=== PATIENT | female | born 1980 | race Hispanic/Latino ===

== ENCOUNTER 2019-05-05 12:21 | Emergency (ER) | payer SELFPAY ==
[2019-05-05] MEDS ORDERED: NA CHLORIDE 0.9% 1,000 ML ONE (12:46)
[2019-05-05 13:10] LABS: Protime INR 1.01
[2019-05-05 13:11] LABS: Absolute Lymphocytes (CBC) 1.7 K/uL (0.7-4.9); Basophils % 0.7 % (0-1.3); Hematocrit 34.6 % (36.0-45.0); Lymphocytes % 18.9 % (15.3-44.8); RBC Red Blood Cell Count 4.19 M/uL (3.86-4.86)
--- NOTE | 2019-05-05 13:12 | RAD REPORT ---
EXAM DESCRIPTION: Tarun Single View05/05/2019 1:06 pm CLINICAL HISTORY: Palpitation COMPARISON: May 01, 2019 FINDINGS: The lungs appear clear of acute infiltrate. The heart is normal size IMPRESSION: No acute abnormalities displayed
[2019-05-05 13:30] LABS: ALT/SGPT 22 U/L (12-78); AST/SGOT 12 U/L (15-37); Albumin 3.3 g/dL (3.4-5.0); Alkaline Phosphatase 77 U/L (45-117); BUN Blood Urea Nitrogen 11 mg/dL (7-18); Bicarbonate 23 mmol/L (21-32); Bilirubin Direct < 0.1 mg/dL (0-0.2); Bilirubin Total 0.3 mg/dL (0.2-1.0); Glucose Level 116 mg/dL (74-106); Magnesium 2.4 mg/dL (1.8-2.4); NT PRO-BNP 609 pg/mL (<125); Potassium 4.2 mmol/L (3.5-5.1); Protein, Total 7.3 g/dL (6.4-8.2); Sodium Level 144 mmol/L (136-145); Thyroid Stimulating Hormone 0.546 uIU/mL (0.360-3.740); Troponin (Emerg Dept Use Only) 0.08 ng/mL (0.0-0.045)
--- NOTE | 2019-05-05 14:18 | ER ---
Nurse's Notes [facility] Name: Janet Eduardo Age: 39 yrs Sex: Female : 1980 Arrival Date: 05/05/2019 Time: 12:24 Bed 5 Private MD: Diagnosis: Supraventricular tachycardia;Elevated troponin Presentation: 05/05 12:25 Presenting complaint: EMS states: At work when patient began experiencing palpitations. ss Pt refused EMS transport, when to [facility] for evaluation which heart rate was noted to be 180 bmp. EMS Administered Adenosine 12 mg, which was unsuccessful. Ativan 2 mg administered and patient cardioverted at 50 J which was successful bring heart rate down to 107. Patient has no complaints at this time. Transition of care: patient was not received from another setting of care. Onset of symptoms was May 05, 2019. Risk Assessment: Do you want to hurt yourself or someone else? Patient reports no desire to harm self or others. Initial Sepsis Screen: Does the patient meet any 2 criteria? HR > 90 bpm. Does the patient have a suspected source of infection? No. Patient's initial sepsis screen is negative. 12:25 Method Of Arrival: EMS: [facility] 12:25 Acuity: PRETTY 3 12:43 Care prior to arrival: Medication(s) given: see triage note IV initiated. 22 GA, in the ss left hand. Historical: - Allergies: 12:31 No Known Allergies; ss - Home Meds: 12:31 Synthroid 75 mcg Oral tab 1 tab once daily [Active]; ss - PMHx: 12:31 Hypothyroidism; ss - Immunization history:: Adult Immunizations up to date. - Social history:: Smoking status: Patient/guardian denies using tobacco. - Ebola Screening: : Patient denies exposure to infectious person Patient denies travel to an Ebola-affected area in the 21 days before illness onset. Screenin:58 Abuse screen: Denies threats or abuse. Denies injuries from another. Nutritional hb screening: No deficits noted. Tuberculosis screening: No symptoms or risk factors identified. Fall Risk None identified. Assessment: 12:30 General: Appears in no apparent distress. Behavior is calm, cooperative. Pain: Denies hb pain. Neuro: Level of Consciousness is awake, alert, obeys commands, Oriented to person, place, time, situation. Cardiovascular: Heart tones S1 S2 present Capillary refill < 3 seconds Patient's skin is warm and dry. Respiratory: Airway is patent Respiratory effort is even, unlabored, Respiratory pattern is regular, symmetrical, Breath sounds are clear bilaterally. GI: No signs and/or symptoms were reported involving the gastrointestinal system. : No signs and/or symptoms were reported regarding the genitourinary system. EENT: No signs and/or symptoms were reported regarding the EENT system. Derm: Skin is pink, warm \T\ dry. Musculoskeletal: No signs and/or symptoms reported regarding the musculoskeletal system. 12:59 Reassessment: Pt reports feeling better, wants to go home. KATH Santacruz notified. hb 13:00 Reassessment: Patient appears in no apparent distress at this time. Patient and/or hb family updated on plan of care and expected duration. Pain level reassessed. Patient is alert, oriented x 3, equal unlabored respirations, skin warm/dry/pink. 13:17 Reassessment: KATH Santacruz at bedside to discuss plan of care. hb 13:30 Reassessment: Patient appears in no apparent distress at this time. Patient and/or hb family updated on plan of care and expected duration. Pain level reassessed. Patient is alert, oriented x 3, equal unlabored respirations, skin warm/dry/pink. 13:41 Reassessment: Pt questioning plan of care, KATH Santacruz at bedside. hb 14:03 Reassessment: KATH Santacruz at bedside to discuss plan of care, pt insisting she be hb discharged home. 14:15 Reassessment: Patient appears in no apparent distress at this time. Patient and/or hb family updated on plan of care and expected duration. Pain level reassessed. Patient is alert, oriented x 3, equal unlabored respirations, skin warm/dry/pink. Patient denies pain at this time. Vital Signs: 12:31 BP 113 / 69; Pulse 105; Resp 15; Temp 98.0(TE); Pulse Ox 99% on R/A; Height 5 ft. 2 in. ss (157.48 cm); Pain 0/10; 13:15 BP 118 / 80; Pulse 80; Resp 15; Pulse Ox 100% ; Pain 0/10; hb 13:59 BP 116 / 82; Pulse 83; Resp 20; Temp 97.6(TE); Pulse Ox 100% on R/A; mh5 ED Course: 12:24 Patient arrived in ED. ss 12:26 Patient has correct armband on for positive identification. Placed in gown. Bed in low mh5 position. Call light in reach. Side rails up X2. Warm blanket given. secured entrance monitor on. Pulse ox on. NIBP on. 12:26 Maintain EMS IV. Dressing intact. Site clean \T\ dry. mh5 12:27 Triage completed. ss 12:29 Noam Barnes NP is PHCP. pm1 12:29 Enrique Martinez MD is Attending Physician. pm1 12:31 Arm band placed on right wrist. ss 12:40 EKG done, by aircraft engine technician. reviewed by Noam Barnes NP. at1 12:54 Inserted saline lock: 22 gauge in right wrist, using aseptic technique. Blood collected.hb 13:06 XRAY Chest (1 view) In Process Unspecified. EDMS 13:08 Mildred Enrique RN is Primary Nurse. sv 13:45 Patient maintains SpO2 saturation greater than 95% on room air. hb 14:33 No provider procedures requiring assistance completed. hb 14:33 IV discontinued, intact, bleeding controlled, No redness/swelling at site. Pressure hb dressing applied. Administered Medications: 12:57 Drug: NS 0.9% 1000 ml Route: IV; Rate: 1000 ml; Site: right wrist; hb 13:49 Follow up: Response: No adverse reaction; IV Status: Completed infusion; IV Intake: hb 1000ml Intake: 13:49 IV: 1000ml; Total: 1000ml. hb Outcome: 14:33 AMA AMA form signed hb 14:33 Condition: unchanged 14:33 Instructed on the need for admit, Demonstrated understanding of instructions. 14:35 Patient left the ED. hb Signatures: Dispatcher [employer] EDMI Mildred Enrique RN RN sv Smirch, Shelby, RN RN ss Shannon Zuñiga, battery mechanic EKG Tat1 Noam Barnes NP CULINARY ART TEACHER pm1 Shira Marquez RN RN hb Martinez, Maria [facility] Corrections: (The following items were deleted from the chart) 12:44 12:25 Care prior to arrival: None. ss ss
--- NOTE | 2019-05-05 14:19 | EDPHYS ---
Physician Documentation [facility] Name: Janet Eduardo Age: 39 yrs Sex: Female : 1980 Arrival Date: 05/05/2019 Time: 12:24 Bed 5 Private MD: ED Physician Enrique Martinez HPI: 05/05 12:41 This 39 yrs old Female presents to ER via EMS with complaints of Irregular pm1 Pulse. 12:41 The patient presents with a history of heart racing. Context: The symptoms occur at pm1 rest. Onset: The symptoms/episode began/occurred this morning, at 04:30, patient woke up with sensation of palpitations . Duration: The patient or guardian reports a single episode, that is now resolved. Modifying factors: The symptoms are aggravated by nothing. The symptoms are alleviated by medications and shock given by EMS. Associated signs and symptoms: Pertinent negatives: chest pain, fever, lightheadedness, nausea, SOB, syncope, vomiting. Severity of symptoms: in the emergency department the symptoms have resolved Pain is currently a 0 / 10. The patient has experienced similar episodes in the past, multiple times. The patient has been recently seen by a physician: Patient seen at clinic prior to arrival. 12:41 Patient woke up this AM at 0430 with palpitations and then she went back to sleep. Woke pm1 up at 0530 and palpitations were still present as she got ready for work. Symptoms persisted as she was at work, went to a clinic were they saw that she had a heart rate of 180's. EMS came to the clinic and shocked her out of the rhythm. Patient reports history of palpitations that she self resolves with Valsalva maneuvers. Today the maneuvers did not work Has had this problem for at least the past 5 years. Historical: - Allergies: 12:31 No Known Allergies; ss - Home Meds: 12:31 Synthroid 75 mcg Oral tab 1 tab once daily [Active]; ss - PMHx: 12:31 Hypothyroidism; ss - Immunization history:: Adult Immunizations up to date. - Social history:: Smoking status: Patient/guardian denies using tobacco. - Ebola Screening: : Patient denies exposure to infectious person Patient denies travel to an Ebola-affected area in the 21 days before illness onset. ROS: 12:41 Constitutional: Negative for fever, chills, and weight loss, Eyes: Negative for injury, pm1 pain, redness, and discharge, ENT: Negative for injury, pain, and discharge, Neck: Negative for injury, pain, and swelling. 12:41 Respiratory: Negative for shortness of breath, cough, wheezing, and pleuritic chest pain, Abdomen/GI: Negative for abdominal pain, nausea, vomiting, diarrhea, and constipation, Back: Negative for injury and pain, : Negative for injury, bleeding, discharge, and swelling, MS/Extremity: Negative for injury and deformity, Skin: Negative for injury, rash, and discoloration, Neuro: Negative for headache, weakness, numbness, tingling, and seizure. 12:41 Cardiovascular: Positive for palpitations, Negative for chest pain, edema, orthopnea. Exam: 12:41 Constitutional: This is a well developed, well nourished patient who is awake, alert, pm1 and in no acute distress. Head/Face: Normocephalic, atraumatic. Eyes: Pupils equal round and reactive to light, extra-ocular motions intact. Lids and lashes normal. Conjunctiva and sclera are non-icteric and not injected. Cornea within normal limits. Periorbital areas with no swelling, redness, or edema. ENT: Nares patent. No nasal discharge, no septal abnormalities noted. Tympanic membranes are normal and external auditory canals are clear. Oropharynx with no redness, swelling, or masses, exudates, or evidence of obstruction, uvula midline. Mucous membranes moist. Neck: Trachea midline, no thyromegaly or masses palpated, and no cervical lymphadenopathy. Supple, full range of motion without nuchal rigidity, or vertebral point tenderness. No Meningismus. Chest/axilla: Normal chest wall appearance and motion. Nontender with no deformity. No lesions are appreciated. Cardiovascular: Regular rate and rhythm with a normal S1 and S2. No gallops, murmurs, or rubs. No pulse deficits. Respiratory: Lungs have equal breath sounds bilaterally, clear to auscultation and percussion. No rales, rhonchi or wheezes noted. No increased work of breathing, no retractions or nasal flaring. Abdomen/GI: Soft, non-tender, with normal bowel sounds. No distension or tympany. No guarding or rebound. No evidence of tenderness throughout. Back: No spinal tenderness. No costovertebral tenderness. Full range of motion. Skin: Warm, dry with normal turgor. Normal color with no rashes, no lesions, and no evidence of cellulitis. MS/ Extremity: Pulses equal, no cyanosis. Neurovascular intact. Full, normal range of motion. 12:41 Neuro: Orientation: is normal, Mentation: is normal, Motor: is normal, moves all fours, Sensation: is normal, no obvious gross deficits. Vital Signs: 12:31 BP 113 / 69; Pulse 105; Resp 15; Temp 98.0(TE); Pulse Ox 99% on R/A; Height 5 ft. 2 in. ss (157.48 cm); Pain 0/10; 13:15 BP 118 / 80; Pulse 80; Resp 15; Pulse Ox 100% ; Pain 0/10; hb 13:59 BP 116 / 82; Pulse 83; Resp 20; Temp 97.6(TE); Pulse Ox 100% on R/A; mh5 MDM: 12:34 Patient medically screened. pm1 13:44 Data reviewed: vital signs. Data interpreted: Pulse oximetry: on room air is 98 %. pm1 Interpretation: normal. Counseling: I had a detailed discussion with the patient and/or guardian regarding: the historical points, exam findings, and any diagnostic results supporting the discharge/admit diagnosis, lab results, radiology results, the need for further work-up and treatment in the hospital, elevated troponin present. 13:44 Refusal of service: The patient/guardian displays adequate decision making capability pm1 and despite a detailed discussion of alternatives, benefits, risks, and consequences refuses: Admission to the hospital for further work-up and treatment, Patient reports that she feels fine without any symptoms and wants to go back to work. 14:15 ED course: After discussing in length again the reason for admission, the patient wants pm1 to go home and her supports her diecision. 05/05 12:35 Order name: Basic Metabolic Panel; Complete Time: 13:32 pm1 05/05 12:35 Order name: CBC with Diff; Complete Time: 13:32 pm1 05/05 12:35 Order name: LFT's; Complete Time: 13:32 pm1 05/05 12:35 Order name: Magnesium; Complete Time: 13:32 pm1 05/05 12:35 Order name: NT PRO-BNP; Complete Time: 13:32 pm1 05/05 12:35 Order name: PT-INR; Complete Time: 13:32 pm1 05/05 12:35 Order name: Troponin (emerg Dept Use Only); Complete Time: 13:32 pm1 05/05 12:35 Order name: XRAY Chest (1 view); Complete Time: 13:32 pm1 05/05 12:35 Order name: EKG; Complete Time: 12:36 pm1 05/05 12:35 Order name: Cardiac monitoring; Complete Time: 13:10 pm1 05/05 12:35 Order name: EKG - Nurse/Tech; Complete Time: 13:10 pm1 05/05 12:35 Order name: TSH; Complete Time: 13:32 pm1 05/05 12:35 Order name: IV Saline Lock; Complete Time: 13:10 pm1 05/05 12:35 Order name: Labs collected and sent; Complete Time: 13:10 pm1 05/05 12:35 Order name: O2 Per Protocol; Complete Time: 13:10 pm1 05/05 12:35 Order name: O2 Sat Monitoring; Complete Time: 13:10 pm1 Administered Medications: 12:57 Drug: NS 0.9% 1000 ml Route: IV; Rate: 1000 ml; Site: right wrist; hb 13:49 Follow up: Response: No adverse reaction; IV Status: Completed infusion; IV Intake: hb 1000ml Disposition: 05/06 07:28 Co-signature as Attending Physician, Enrique Martinez MD I agree with the assessment and kdr plan of care. Disposition: 05/05/19 14:18 Patient has left against medical advice. Impression: Supraventricular tachycardia, Elevated troponin. - Patients states they are going to Home. - Condition is Undetermined. - Discharge Instructions: Electrical Cardioversion, Paroxysmal Supraventricular Tachycardia. Follow up: Emergency Department; When: Upon discharge from the Emergency Department; Reason: Recheck today's complaints, Continuance of care, Re-evaluation by your physician. Follow up: Private Physician; When: Upon discharge from the Emergency Department; Reason: Recheck today's complaints, Continuance of care, Re-evaluation by your physician. - Problem is new. - Symptoms have improved. Signatures: Dispatcher [employer] Enrique Ralph MD MD [facility] Daisha Rucker RN RN ss Noam Barnes NP CREATIVE SERVICES DESIGNER pm1 Shira Marquez RN RN hb Corrections: (The following items were deleted from the chart) 05/05 14:35 14:18 05/05/2019 14:18 Patients has left against medical advice. Impression: hb Supraventricular tachycardia; Elevated troponin. Patient states they are going to Home. Condition is Undetermined. Follow up: Emergency Department; When: Upon discharge from the Emergency Department; Reason: Recheck today's complaints, Continuance of care, Re-evaluation by your physician. Follow up: Private Physician; When: Upon discharge from the Emergency Department; Reason: Recheck today's complaints, Continuance of care, Re-evaluation by your physician. Problem is new. Symptoms have improved. pm1
--- NOTE | 2019-05-05 14:30 | EKG ---
Test Date: 2019-05-05 Test Time: 12:30:03 Nurse Assessor: CHRIS MEASUREMENT RESULTS: Intervals: Rate: 96 TN: 138 QRSD: 68 QT: 338 QTc: 427 [employer]: P: 53 TN: 138 QRS: 13 T: 16 INTERPRETIVE STATEMENTS: Normal sinus rhythm Normal ECG Compared to ECG 05/02/2009 05:25:01 No significant changes Electronically Signed On 05-05-19 14:29:54 BUCKET WASH OPERATOR by Young Ruiz
[2019-05-05 16:20] VITALS: O2SAT 100
[2019-05-05 16:22] VITALS: BP 116/82; TEMP 97.6
== END 2019-05-05 14:35 | disposition left against medical advice (07) ==
LOC: ER 12:21
DX: I47.1 Supraventricular tachycardia (principal); R79.89 Other specified abnormal findings of blood chemistry; E03.9 Hypothyroidism, unspecified
CPT/HCPCS: 36415; 71045; 80048; 80076; 83735; 83880; 84443; 84484; 85025; 85610; 93005; 96360; 99285; J7030

== ENCOUNTER 2019-10-26 10:49 | Emergency (ER) | payer SELFPAY ==
[2019-10-26 11:23] LABS: Absolute Lymphocytes (CBC) 2.5 K/uL (0.7-4.9); Basophils % 0.9 % (0-1.3); Hematocrit 32.9 % (36.0-45.0); MPV 7.9 fL (7.6-11.3); RBC Red Blood Cell Count 4.65 M/uL (3.86-4.86)
[2019-10-26 11:26] LABS: Protime INR 1.03
[2019-10-26 11:49] LABS: ALT/SGPT 17 U/L (12-78); AST/SGOT 12 U/L (15-37); Albumin 3.3 g/dL (3.4-5.0); Alkaline Phosphatase 79 U/L (45-117); BUN Blood Urea Nitrogen 14 mg/dL (7-18); Bicarbonate 24 mmol/L (21-32); Bilirubin Direct < 0.1 mg/dL (0-0.2); Bilirubin Total 0.3 mg/dL (0.2-1.0); Glucose Level 104 mg/dL (74-106); Magnesium 2.3 mg/dL (1.8-2.4); NT PRO-BNP 1320 pg/mL (<125); Potassium 4.1 mmol/L (3.5-5.1); Protein, Total 7.8 g/dL (6.4-8.2); Sodium Level 138 mmol/L (136-145); Thyroid Stimulating Hormone 0.446 uIU/mL (0.360-3.740); Troponin (Emerg Dept Use Only) 0.03 ng/mL (0.0-0.045)
--- NOTE | 2019-10-26 11:52 | RAD REPORT ---
EXAM DESCRIPTION: RAD - Chest Single View - 10/26/2019 11:36 am CLINICAL HISTORY: CHEST PAIN COMPARISON: April 2019 TECHNIQUE: AP portable chest image was obtained 10/26/2019 11:36 am . FINDINGS: Lungs are clear. Heart and vasculature are normal. No measurable pleural effusion and no p neumothorax. No acute bony abnormality seen. No acute aortic findings suspected. IMPRESSION: No acute cardiopulmonary process. No significant interval change.
--- NOTE | 2019-10-26 12:21 | ER ---
Nurse's Notes [facility] Name: Janet Eduardo Age: 39 yrs Sex: Female : 1980 Arrival Date: 10/26/2019 Time: 10:50 Bed 4 Private MD: Diagnosis: Palpitations Presentation: 10/25 10:57 Chief complaint: Patient states: was sent from clinic for heart rate at 190 bpm and iw hypotension. Risk Assessment: Do you want to hurt yourself or someone else? Patient reports no desire to harm self or others. 10:57 Method Of Arrival: Wheelchair iw 10:57 Acuity: PRETTY 2 iw 11:04 Coronavirus screen: Patient reports a cough. Patient denies shortness of breath or ph difficulty breathing. Patient denies measured and/or subjective temperature greater than 100.4F prior to today's visit. Patient denies travel on a cruise ship or to a country the [facility] currently lists as an affected area. Patient denies contact with known and/or suspected case of COVID-19. Ebola Screen: No symptoms or risks identified at this time. Initial Sepsis Screen: Does the patient meet any 2 criteria? No. Patient's initial sepsis screen is negative. Does the patient have a suspected source of infection? No. Patient's initial sepsis screen is negative. Onset of symptoms was October 26, 2019. Triage Assessment: 11:02 General: Appears in no apparent distress. comfortable, well groomed, Behavior is calm, ph cooperative, appropriate for age, Denies fever, feeling ill. Pain: Denies pain. Neuro: Level of Consciousness is awake, alert, obeys commands, Oriented to person, place, time, situation. Cardiovascular: Denies chest pain, fatigue, palpitations, shortness of breath, Capillary refill < 3 seconds in bilateral fingers Patient's skin is warm and dry. Rhythm is sinus rhythm. Respiratory: Reports cough that is Airway is patent Respiratory effort is even, unlabored, Respiratory pattern is regular, symmetrical, Denies shortness of breath. GI: No signs and/or symptoms were reported involving the gastrointestinal system. Derm: Skin is intact, is healthy with good turgor, Skin is pink, warm \T\ dry. Musculoskeletal: Circulation, motion, and sensation intact. Range of motion: intact in all extremities. MEDICAL BILLING INSTRUCTOR: 11:00 LMP 10/02/2019 ph Historical: - Allergies: 11:04 No Known Allergies; ph - Home Meds: 11:00 Synthroid 75 mcg Oral tab 1 tab once daily [Active]; iw - PMHx: 11:00 Hypothyroidism; iw - Immunization history:: Adult Immunizations unknown. - Social history:: Smoking status: Patient denies any tobacco usage or history of. Screenin:03 Abuse screen: Denies threats or abuse. Denies injuries from another. Nutritional ph screening: No deficits noted. Tuberculosis screening: No symptoms or risk factors identified. Fall Risk None identified. Assessment: 11:48 Reassessment: Patient appears in no apparent distress at this time. Patient and/or ph family updated on plan of care and expected duration. Pain level reassessed. Patient is alert, oriented x 3, equal unlabored respirations, skin warm/dry/pink. General: SEE TRIAGE ASSESSMENT. 13:00 Reassessment: Patient appears in no apparent distress at this time. Patient and/or ph family updated on plan of care and expected duration. Pain level reassessed. Patient is alert, oriented x 3, equal unlabored respirations, skin warm/dry/pink. Pt prescribed low dose of medication to helo control heart rate, instructed to follow up w/ integration developer. Vital Signs: 11:00 BP 118 / 66; Pulse 89; Resp 18; Temp 97.1; Pulse Ox 100% on R/A; Weight 100.24 kg; ph Height 5 ft. 2 in. (157.48 cm); Pain 0/10; 12:00 BP 109 / 68; Pulse 87; Resp 16; Temp 97.6; Pulse Ox 99% on R/A; ph 13:00 BP 112 / 66; Pulse 84; Resp 16; Temp 97.9; Pulse Ox 99% on R/A; ph 11:00 Body Mass Index 40.42 (100.24 kg, 157.48 cm) ph ED Course: 10:50 Patient arrived in ED. ds1 10:57 Chung Quiros PA is PHCP. jr8 10:57 Enrique Martinez MD is Attending Physician. jr8 10:59 Triage completed. iw 11:00 Carmen Melendrez, RN is Primary Nurse. ph 11:03 Arm band placed on Patient placed in an exam room, on a stretcher, on shelter monitor, ph on pulse oximetry. 11:04 Patient has correct armband on for positive identification. Placed in gown. Bed in low ph position. Call light in reach. Side rails up X2. conveyor monitor on. Pulse ox on. NIBP on. Door closed. Noise minimized. Warm blanket given. 11:04 No provider procedures requiring assistance completed. ph 11:06 Initial lab(s) drawn, by me, sent to lab. Inserted saline lock: 20 gauge in right dh3 antecubital area, using aseptic technique. Blood collected. 11:36 EKG done, by durability technician. reviewed by Enrique Martinez MD. tc 11:37 XRAY Chest (1 view) In Process Unspecified. EDMS 12:16 Young Ruiz MD is Referral Physician. jr8 13:00 IV discontinued, intact, bleeding controlled, No redness/swelling at site. Pressure ph dressing applied. Administered Medications: No medications were administered Outcome: 12:20 Discharge ordered by . jr8 13:06 Patient left the ED. ph 13:06 Discharged to home ambulatory. ph 13:06 Condition: good 13:06 Discharge instructions given to patient, Instructed on discharge instructions, follow up and referral plans. medication usage, Demonstrated understanding of instructions, follow-up care, medications, Prescriptions given X 1. Signatures: Dispatcher [employer] [facility] Leigh Larios ds1 Radha Nassar, RN Chung Fiore PA PA jr8 Octavia Boles, passenger rate clerk EKG Ttc Carmen Melendrez RN RN ph Herrera, [facility]
--- NOTE | 2019-10-26 12:22 | EDPHYS ---
Physician Documentation [facility] Name: Janet Eduardo Age: 39 yrs Sex: Female : 1980 Arrival Date: 10/26/2019 Time: 10:50 Bed 4 Private MD: ED Physician Enrique Martinez HPI: 10/25 12:13 This 39 yrs old Female presents to ER via Wheelchair with complaints of SVT. jr8 12:13 The patient presents with a history of heart racing. Context: The symptoms occur at jr8 rest. Onset: The symptoms/episode began/occurred acutely, today. Duration: The patient or guardian reports a single episode, that is now resolved. Modifying factors: The symptoms are aggravated by nothing. The symptoms are alleviated by nothing. Associated signs and symptoms: The patient has no apparent associated signs or symptoms. Severity of symptoms: At their worst the symptoms were moderate in the emergency department the symptoms have resolved. The patient has experienced similar episodes in the past, several times. The patient has not recently seen a physician. 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 Stated that last episode was about 2 months ago. Had another today but now resolved and feeling better . 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 - Social history:: Smoking status: Patient denies any tobacco usage or history of. ROS: 12:13 Eyes: Negative for injury, pain, redness, and discharge, ENT: Negative for injury, jr8 pain, and discharge, Neck: Negative for injury, pain, and swelling, Respiratory: Negative for shortness of breath, cough, wheezing, and pleuritic chest pain, Abdomen/GI: Negative for abdominal pain, nausea, vomiting, diarrhea, and constipation, Back: Negative for injury and pain, MS/Extremity: Negative for injury and deformity, Skin: Negative for injury, rash, and discoloration, Neuro: Negative for headache, weakness, numbness, tingling, and seizure. 12:13 Cardiovascular: Positive for palpitations. Exam: 12:13 Eyes: Pupils equal round and reactive to light, extra-ocular motions intact. Lids and jr8 lashes normal. Conjunctiva and sclera are non-icteric and not injected. Cornea within normal limits. Periorbital areas with no swelling, redness, or edema. ENT: Nares patent. No nasal discharge, no septal abnormalities noted. Tympanic membranes are normal and external auditory canals are clear. Oropharynx with no redness, swelling, or masses, exudates, or evidence of obstruction, uvula midline. Mucous membranes moist. Neck: Trachea midline, no thyromegaly or masses palpated, and no cervical lymphadenopathy. Supple, full range of motion without nuchal rigidity, or vertebral point tenderness. No Meningismus. Cardiovascular: Regular rate and rhythm with a normal S1 and S2. No gallops, murmurs, or rubs. Normal PMI, no JVD. No pulse deficits. Respiratory: Lungs have equal breath sounds bilaterally, clear to auscultation and percussion. No rales, rhonchi or wheezes noted. No increased work of breathing, no retractions or nasal flaring. Abdomen/GI: Soft, non-tender, with normal bowel sounds. No distension or tympany. No guarding or rebound. No evidence of tenderness throughout. Back: No spinal tenderness. No costovertebral tenderness. Full range of motion. Skin: Warm, dry with normal turgor. Normal color with no rashes, no lesions, and no evidence of cellulitis. MS/ Extremity: Pulses equal, no cyanosis. Neurovascular intact. Full, normal range of motion. Neuro: Awake and alert, GCS 15, oriented to person, place, time, and situation. Cranial nerves II-XII grossly intact. Motor strength 5/5 in all extremities. Sensory grossly intact. Cerebellar exam normal. Normal gait. 12:13 ECG was reviewed by the Attending Physician. Vital Signs: 11:00 BP 118 / 66; Pulse 89; Resp 18; Temp 97.1; Pulse Ox 100% on R/A; Weight 100.24 kg; ph Height 5 ft. 2 in. (157.48 cm); Pain 0/10; 12:00 BP 109 / 68; Pulse 87; Resp 16; Temp 97.6; Pulse Ox 99% on R/A; ph 13:00 BP 112 / 66; Pulse 84; Resp 16; Temp 97.9; Pulse Ox 99% on R/A; ph 11:00 Body Mass Index 40.42 (100.24 kg, 157.48 cm) ph MDM: 10:58 Patient medically screened. [facility] 12:13 Data reviewed: vital signs, nurses notes, lab test result(s), EKG, radiologic studies, jr8 plain films. Data interpreted: Pulse oximetry: on room air is 100 %. Interpretation: normal. 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 Response to treatment: the patient's symptoms have resolved after treatment. 10/25 10:58 Order name: Basic Metabolic Panel; Complete Time: 12:16 10/25 10:58 Order name: CBC with Diff; Complete Time: 12:10/25 10:58 Order name: LFT's; Complete Time: 12:10/25 10:58 Order name: Magnesium; Complete Time: 12:16 10/25 10:58 Order name: NT PRO-BNP; Complete Time: 12:16 10/25 10:58 Order name: PT-INR; Complete Time: 12:16 10/25 10:58 Order name: Troponin (emerg Dept Use Only); Complete Time: 12:16 10/25 10:58 Order name: XRAY Chest (1 view); Complete Time: 12:16 10/25 10:58 Order name: EKG; Complete Time: 10:59 10/25 10:58 Order name: Cardiac monitoring; Complete Time: 11:10/25 10:58 Order name: EKG - Nurse/Tech; Complete Time: 11:10/25 10:58 Order name: IV Saline Lock; Complete Time: 11:10/25 10:58 Order name: TSH; Complete Time: 12:16 10/25 10:58 Order name: T4 Free; Complete Time: 12:16 10/25 10:58 Order name: Labs collected and sent; Complete Time: 11:10/25 10:58 Order name: O2 Per Protocol; Complete Time: 8 10/25 10:58 Order name: O2 Sat Monitoring; Complete Time: EC:13 Rate is 90 beats/min. Rhythm is regular, Normal Sinus Rhythm. QRS [place] is Normal. ID jr8 interval is normal at 142 msec. QRS interval is normal at 70 msec. QT interval is normal at 425 msec. No Q waves. T waves are Normal. No ST changes noted. Clinical impression: Normal ECG. Interpreted by me. Reviewed by me. Administered Medications: No medications were administered Disposition: 14:12 Co-signature as Attending Physician, Enrique Martinez MD I agree with the assessment and kdr plan of care. Disposition: 10/26/19 12:20 Discharged to Home. Impression: Palpitations. - Condition is Stable. - Discharge Instructions: Holter Monitoring, Palpitations, Paroxysmal Supraventricular Tachycardia. - Prescriptions for Carvedilol 6.25 mg Oral Tablet - take 1 tablet by ORAL route once daily with food; 30 tablet. - Medication Reconciliation Form, Thank You Letter, Antibiotic Education, Prescription Opioid Use form. - Follow up: Young Ruiz MD; When: 1 - 2 days; Reason: Recheck today's complaints, Continuance of care, Re-evaluation by your physician. - Problem is new. - Symptoms have improved. Signatures: Dispatcher [employer] EDME Enrique Martinez MD MD kdr Radha Nassar RN RN iw Chung Quiros PA PA jr8 Carmen Melendrez RN RN ph Corrections: (The following items were deleted from the chart) 13:06 12:20 10/26/2019 12:20 Discharged to Home. Impression: Palpitations. Condition is ph Stable. Forms are Medication Reconciliation Form, Thank You Letter, Antibiotic Education, Prescription Opioid Use. Follow up: Young Ruiz; When: 1 - 2 days; Reason: Recheck today's complaints, Continuance of care, Re-evaluation by your physician. Problem is new. Symptoms have improved. jr8
[2019-10-26 14:13] VITALS: BP 118/66; TEMP 97.1; O2SAT 100
--- NOTE | 2019-10-26 16:17 | EKG ---
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
== END 2019-10-26 13:06 | disposition home or self-care (01) ==
LOC: ER 10:49
DX: R00.2 Palpitations (principal); E03.9 Hypothyroidism, unspecified
CPT/HCPCS: 36415; 71045; 80048; 80076; 83735; 83880; 84439; 84443; 84484; 85025; 85610; 93005; 99284

== ENCOUNTER 2020-09-10 09:18 | Inpatient (IN) | payer SELFPAY ==
[2020-09-10 09:52] LABS: Absolute Lymphocytes (CBC) 2.2 K/uL (0.7-4.9); Basophils % 0.5 % (0-1.3); Hematocrit 30.1 % (36.0-45.0); Lymphocytes % 20.1 % (15.3-44.8); MPV 7.5 fL (7.6-11.3); RBC Red Blood Cell Count 4.47 M/uL (3.86-4.86)
[2020-09-10] MEDS ORDERED: NA CHLORIDE 0.9% 1,000 ML ONE ×2 (09:55→11:35)
[2020-09-10] MEDS ORDERED: ADENOSINE 6 MG/ 2ML VIAL IV ONE (09:55)
--- NOTE | 2020-09-10 10:21 | RAD REPORT ---
EXAM DESCRIPTION: RAD - Chest Single View - 09/10/2020 10:10 am CLINICAL HISTORY: PALPITATIONS Chest pain. COMPARISON: Chest Single View dated 10/26/2019; Chest Single View dated 05/05/2019; CHEST SINGLE VIEW dated 05/01/2009 FINDINGS: Portable technique limits examination quality. The lungs are grossly clear. The heart is normal in size. No displaced fractures. IMPRESSION: No acute intrathoracic process suspected.
[2020-09-10 10:29] LABS: BUN Blood Urea Nitrogen 14 mg/dL (7-18); Bicarbonate 24 mmol/L (21-32); Glucose Level 115 mg/dL (74-106); Magnesium 2.2 mg/dL (1.8-2.4); NT PRO-BNP 871 pg/mL (<125); Potassium 4.4 mmol/L (3.5-5.1); Sodium Level 141 mmol/L (136-145); Troponin (Emerg Dept Use Only) 0.06 ng/mL (0.0-0.045)
[2020-09-10] MEDS ORDERED: HEPARIN 5000 UNIT/ML 1 ML VIAL ONE (12:32)
--- NOTE | 2020-09-10 13:57 | EDPHYS ---
Physician Documentation [facility] Name: Janet Eduardo Age: 40 yrs Sex: Female : 1980 Arrival Date: 09/10/2020 Time: 09:21 Bed 4 Private MD: ED Physician Rio Springer HPI: 09/10 10:51 This 40 yrs old Female presents to ER via Ambulatory with complaints of rn palpitations. 10:52 The patient presents with a history of heart racing. Context: The symptoms occur at rn rest. Onset: The symptoms/episode began/occurred last night. Duration: The patient or guardian reports a single episode. Modifying factors: The symptoms are aggravated by nothing. The symptoms are alleviated by nothing. Severity of symptoms: At their worst the symptoms were moderate in the emergency department the symptoms are unchanged. The patient has experienced similar episodes in the past. The patient has not recently seen a physician. 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 - Social history:: Smoking status: Patient denies any tobacco usage or history of. - Family history:: not pertinent. - Hospitalizations: : No recent hospitalization is reported. ROS: 10:52 Constitutional: Negative for fever, chills, and weight loss, Eyes: Negative for injury, rn pain, redness, and discharge, Neck: Negative for injury, pain, and swelling, Cardiovascular: Negative for chest pain, and edema, Respiratory: Negative for shortness of breath, cough, wheezing, and pleuritic chest pain, Abdomen/GI: Negative for abdominal pain, nausea, vomiting, diarrhea, and constipation, MS/Extremity: Negative for injury and deformity, Skin: Negative for injury, rash, and discoloration, Neuro: Negative for headache, weakness, numbness, tingling, and seizure. 10:52 All other systems are negative. Exam: 09:49 ECG was reviewed by the Attending Physician. rn 10:52 Constitutional: This is a well developed, well nourished patient who is awake, alert, rn and in no acute distress. Head/Face: Normocephalic, atraumatic. Eyes: Pupils equal round and reactive to light, extra-ocular motions intact. Lids and lashes normal. Conjunctiva and sclera are non-icteric and not injected. Cornea within normal limits. Periorbital areas with no swelling, redness, or edema. Cardiovascular: Tachycardic, regular Respiratory: No increased work of breathing, no retractions or nasal flaring. Abdomen/GI: Soft, non-tender, with normal bowel sounds. No distension or tympany. No guarding or rebound. No evidence of tenderness throughout. Skin: Warm, dry MS/ Extremity: Pulses equal, no cyanosis. Neurovascular intact. Full, normal range of motion. Equal circumference. Neuro: Awake and alert, GCS 15, oriented to person, place, time, and situation. Cranial nerves II-XII grossly intact. Motor strength 5/5 in all extremities. Sensory grossly intact. Vital Signs: 09:28 BP 101 / 67; Pulse 108; Resp 28; Temp 97.9; Pulse Ox 99% ; sv 09:43 BP 119 / 83; Pulse 184; Resp 19; Pulse Ox 100% on R/A; sv 09:47 Pulse 96; Resp 20; Pulse Ox 100% on R/A; sv 10:05 BP 101 / 79; Pulse 95; Resp 19; Pulse Ox 100% on R/A; sv 10:45 BP 99 / 70; Pulse 85; Resp 14; Pulse Ox 100% on 2 lpm NC; sv 11:26 BP 101 / 75; Pulse 80; Resp 19; Pulse Ox 100% on 2 lpm NC; sv 12:00 BP 100 / 77; Pulse 72 MON; Resp 17; Pulse Ox 100% on 2 lpm NC; sv 13:00 BP 114 / 77; Pulse 78; Resp 17; Pulse Ox 100% on 2 lpm NC; sv 13:42 BP 104 / 76; Pulse 78; Resp 17; Pulse Ox 100% on 2 lpm NC; sv 14:22 BP 115 / 73; Pulse 88; Resp 17; Pulse Ox 98% on 2 lpm NC; hb 15:00 BP 106 / 74; Pulse 89; Resp 16; Pulse Ox 100% on 2 lpm NC; sv 16:00 BP 106 / 68; Pulse 82; Resp 17; Pulse Ox 97% on 2 lpm NC; hb 16:45 BP 110 / 74; Pulse 82; Resp 16; Pulse Ox 100% on 2 lpm NC; sv 12:00 Sinus Rhythm sv MDM: 09:26 Patient medically screened. rn 09:50 ED course: Pt cardioverted with adenosine, 6mg x 1, MSR with HR 96 after, stable rn vitals, feels palpitations have resolved.. 11:11 ED course: Consulted with Dr. Butterfield, regarding SVT and elevated troponin, states would rn repeat troponin, admit if increasing, otherwise can f/u outpatient if decreases and continue coreg. . 13:56 Differential diagnosis: arrythmia, dehydration. Data reviewed: vital signs, nurses rn notes, lab test result(s), EKG, radiologic studies, plain films, and as a result, I will admit patient. Counseling: I had a detailed discussion with the patient and/or guardian regarding: the historical points, exam findings, and any diagnostic results supporting the discharge/admit diagnosis, lab results, radiology results, the need for further work-up and treatment in the hospital. Response to treatment: the patient's symptoms have markedly improved after treatment, and as a result, I will admit patient. Admission orders: after a detailed discussion of the patient's condition and case, the admit orders are written by me. ED course: Trop increased from 0.06 to 0.15, will admit to Dr. Springer for further care. . 09/10 09:37 Order name: Basic Metabolic Panel rn 09/10 09:37 Order name: CBC with Diff; Complete Time: 10:24 rn 09/10 09:37 Order name: Magnesium; Complete Time: 10:49 rn 09/10 09:37 Order name: NT PRO-BNP; Complete Time: 10:49 rn 09/10 09:37 Order name: Troponin (emerg Dept Use Only); Complete Time: 10:49 rn 09/10 09:38 Order name: Basic Metabolic Panel; Complete Time: 10:49 EDMS 09/10 09:37 Order name: XRAY Chest (1 view); Complete Time: 10:24 rn 09/10 11:25 Order name: Troponin (emerg Dept Use Only): draw at 1200; Complete Time: 13:51 rn 09/10 14:15 Order name: Echo with Doppler EDRI 09/10 14:55 Order name: COVID-19 : Document "Date of Symptom Onset" if Symptomatic. sv 09/10 15:10 Order name: CORONAVIRUS EDRI 09/10 15:50 Order name: SARS-COV-2 RT PCR EDRI 09/10 09:37 Order name: EKG; Complete Time: 09:39 rn 09/10 09:37 Order name: Cardiac monitoring; Complete Time: 09:39 rn 09/10 09:37 Order name: EKG - Nurse/Tech; Complete Time: 09:49 rn 09/10 09:37 Order name: IV Saline Lock; Complete Time: 09:49 rn 09/10 09:37 Order name: Labs collected and sent; Complete Time: 09:49 rn 09/10 09:37 Order name: O2 Per Protocol; Complete Time: :49 rn 09/10 09:37 Order name: O2 Sat Monitoring; Complete Time: 09:49 rn 09/10 10:28 Order name: EKG Electrocardiogram; Complete Time: 11:16 EDRI 09/10 14:14 Order name: CONS Physician Consult EDRI 09/10 15:16 Order name: Diet Heart Healthy; Complete Time: 15:16 sv EC:49 Rate is 186 beats/min. Rhythm is regular. QRS [place] is Normal. QRS interval is normal. rn QT interval is normal. No Q waves. T waves are Normal. No ST changes noted. Clinical impression: SVT. Interpreted by me. Administered Medications: 09:45 Drug: Adenosine 6 mg Route: IVP; Site: right antecubital; ss 09:46 Follow up: Response: No adverse reaction; Marked relief of symptoms sv 09:45 Drug: NS 0.9% 1000 ml Route: IV; Rate: 1000 ml; Site: right antecubital; sv 11:30 Follow up: Response: No adverse reaction; IV Status: Completed infusion; IV Intake: sv 1000ml 09:55 CANCELLED (Duplicate Order): Adenosine 6 mg IVP in right antecubital once sv 12:00 Drug: NS 0.9% 1000 ml Route: IV; Rate: 1000 ml; Site: right antecubital; sv Disposition: 09/10/20 13:57 Hospitalization ordered by William Springer for Observation. Preliminary diagnosis are Supraventricular tachycardia, Elevated troponin. - Bed requested for Telemetry/MedSurg (observation). - Status is Observation. sv - Condition is Stable. - Problem is an acute exacerbation. - Symptoms have improved. Signatures: Dispatcher [employer] EDMildred Frances RN RN Rio Springer MD MD rn Smirch, Shelby, RN RN ss Corrections: (The following items were deleted from the chart) 09:55 09:54 Adenosine 6 mg IVP in right antecubital once given. sv sv 09:55 09:55 Adenosine 6 mg IVP in right antecubital once ordered. sv sv 13:57 13:57 Hospitalization Ordered by William Springer MD for Observation. Preliminary rn diagnosis is Supraventricular tachycardia. Bed requested for Telemetry/MedSurg (observation). Status is Observation. Condition is Stable. Problem is an acute exacerbation. Symptoms have improved. rn 16:14 13:57 09/10/2020 13:57 Hospitalization Ordered by William Springer MD for Observation. sv Preliminary diagnosis is Supraventricular tachycardia; Elevated troponin. Bed requested for Telemetry/MedSurg (observation). Status is Observation. Condition is Stable. Problem is an acute exacerbation. Symptoms have improved. rn 17:38 16:14 09/10/2020 13:57 Hospitalization Ordered by William Springer MD for Observation. sv Preliminary diagnosis is Supraventricular tachycardia; Elevated troponin. Bed requested for Telemetry/MedSurg (observation). Status is Observation. Condition is Stable. Problem is an acute exacerbation. Symptoms have improved. sv
--- NOTE | 2020-09-10 13:57 | ER ---
Nurse's Notes [facility] Name: Janet Eduardo Age: 40 yrs Sex: Female : 1980 Arrival Date: 09/10/2020 Time: 09:21 Bed 4 Private MD: Diagnosis: Supraventricular tachycardia;Elevated troponin Presentation: 09/10 09:25 Chief complaint: Patient states: high heart rate since last night. Hx of this as well. sv Coronavirus screen: Client denies travel out of the [place] in the last 14 days. At this time, the client does not indicate any symptoms associated with coronavirus-19. Ebola Screen: No symptoms or risks identified at this time. Risk Assessment: Do you want to hurt yourself or someone else? Patient reports no desire to harm self or others. Onset of symptoms was September 09, 2020. 09:25 Method Of Arrival: Ambulatory sv 09:25 Acuity: PRETTY 1 sv 09:28 Initial Sepsis Screen: Does the patient meet any 2 criteria? RR > 20 per min. HR > 90 sv bpm. Yes Does the patient have a suspected source of infection? No. Patient's initial sepsis screen is negative. Triage Assessment: 09:25 General: Appears in no apparent distress. uncomfortable, obese, well developed, sv Behavior is calm, cooperative, appropriate for age. Pain: Complains of pain in chest. Neuro: Level of Consciousness is awake, alert, obeys commands, Oriented to person, place, time, situation, Moves all extremities. Full function Gait is steady. Cardiovascular: Patient's skin is warm and dry. Rhythm is SVT. Respiratory: Airway is patent Respiratory effort is even, unlabored, Respiratory pattern is symmetrical, tachypnea. Derm: Skin is pink, warm \\T\\ dry. 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 - Social history:: Smoking status: Patient denies any tobacco usage or history of. - Family history:: not pertinent. - Hospitalizations: : No recent hospitalization is reported. Screenin:02 Abuse screen: Denies threats or abuse. Denies injuries from another. Nutritional sv screening: No deficits noted. Tuberculosis screening: No symptoms or risk factors identified. Fall Risk None identified. Assessment: 10:09 Reassessment: Patient appears in no apparent distress at this time. No changes from sv previously documented assessment. Patient and/or family updated on plan of care and expected duration. Pain level reassessed. Patient is alert, oriented x 3, equal unlabored respirations, skin warm/dry/pink. 11:21 Reassessment: Patient appears in no apparent distress at this time. Patient and/or sv family updated on plan of care and expected duration. Pain level reassessed. Patient is alert, oriented x 3, equal unlabored respirations, skin warm/dry/pink. Patient states feeling better. Patient states symptoms have improved. 12:06 Reassessment: Patient appears in no apparent distress at this time. Patient and/or sv family updated on plan of care and expected duration. Pain level reassessed. Patient is alert, oriented x 3, equal unlabored respirations, skin warm/dry/pink. Patient states feeling better. Patient states symptoms have improved. 13:00 Reassessment: Patient appears in no apparent distress at this time. Patient and/or sv family updated on plan of care and expected duration. Pain level reassessed. Patient is alert, oriented x 3, equal unlabored respirations, skin warm/dry/pink. 14:05 Reassessment: Dr William Springer at the bedside. sv 14:22 Reassessment: Patient appears in no apparent distress at this time. Patient and/or hb family updated on plan of care and expected duration. Pain level reassessed. Patient is alert, oriented x 3, equal unlabored respirations, skin warm/dry/pink. 14:56 Reassessment: Patient appears in no apparent distress at this time. Patient and/or sv family updated on plan of care and expected duration. Pain level reassessed. Patient is alert, oriented x 3, equal unlabored respirations, skin warm/dry/pink. Patient states feeling better. Patient states symptoms have improved. 15:45 Reassessment: Patient appears in no apparent distress at this time. No changes from previously documented assessment. Patient and/or family updated on plan of care and expected duration. Pain level reassessed. Patient is alert, oriented x 3, equal unlabored respirations, skin warm/dry/pink. 16:45 Reassessment: Attempted to call report, nurse unavailable. sv 17:14 Reassessment: Patient appears in no apparent distress at this time. Patient and/or sv family updated on plan of care and expected duration. Pain level reassessed. Patient is alert, oriented x 3, equal unlabored respirations, skin warm/dry/pink. Vital Signs: 09:28 BP 101 / 67; Pulse 108; Resp 28; Temp 97.9; Pulse Ox 99% ; sv 09:43 BP 119 / 83; Pulse 184; Resp 19; Pulse Ox 100% on R/A; sv 09:47 Pulse 96; Resp 20; Pulse Ox 100% on R/A; sv 10:05 BP 101 / 79; Pulse 95; Resp 19; Pulse Ox 100% on R/A; sv 10:45 BP 99 / 70; Pulse 85; Resp 14; Pulse Ox 100% on 2 lpm NC; sv 11:26 BP 101 / 75; Pulse 80; Resp 19; Pulse Ox 100% on 2 lpm NC; sv 12:00 BP 100 / 77; Pulse 72 MON; Resp 17; Pulse Ox 100% on 2 lpm NC; sv 13:00 BP 114 / 77; Pulse 78; Resp 17; Pulse Ox 100% on 2 lpm NC; sv 13:42 BP 104 / 76; Pulse 78; Resp 17; Pulse Ox 100% on 2 lpm NC; sv 14:22 BP 115 / 73; Pulse 88; Resp 17; Pulse Ox 98% on 2 lpm NC; hb 15:00 BP 106 / 74; Pulse 89; Resp 16; Pulse Ox 100% on 2 lpm NC; sv 16:00 BP 106 / 68; Pulse 82; Resp 17; Pulse Ox 97% on 2 lpm NC; hb 16:45 BP 110 / 74; Pulse 82; Resp 16; Pulse Ox 100% on 2 lpm NC; sv 12:00 Sinus Rhythm sv ED Course: 09:21 Patient arrived in ED. mr 09:25 Mildred Enrique, RN is Primary Nurse. sv 09:25 Patient has correct armband on for positive identification. Bed in low position. Call sv light in reach. Side rails up X2. athletic monitor on. Pulse ox on. NIBP on. Door closed. Head of bed elevated. 09:26 Rio Springer MD is Attending Physician. rn 09:33 EKG done, by ED staff, reviewed by Rio Springer MD. sv 09:34 Inserted saline lock: 20 gauge in right antecubital area, using aseptic technique. ss Blood collected. 09:47 Patient maintains SpO2 saturation greater than 95% on room air. ss 09:47 EKG done, by ED staff, reviewed by Rio Springer MD. sv 09:47 Arm band placed on right wrist. ss 09:58 Triage completed. sv 10:09 X-ray completed. Portable x-ray completed in exam room. Patient tolerated procedure mh1 well. 10:10 XRAY Chest (1 view) In Process Unspecified. EDMS 10:10 Basic Metabolic Panel Sent. sv 12:06 Repeat lab(s) drawn. by me, sent to lab. sv 12:21 Awaiting lab results. sv 13:57 William Springer MD is Hospitalizing Provider. rn 14:16 Awaiting bed assignment. sv 14:55 COVID swab sent to lab. sv 15:16 CORONAVIRUS Sent. sv 15:16 COVID-19 : Document "Date of Symptom Onset" if Symptomatic. Sent. sv 16:46 No provider procedures requiring assistance completed. Patient admitted, IV remains in sv place. intact. Administered Medications: 09:45 Drug: Adenosine 6 mg Route: IVP; Site: right antecubital; ss 09:46 Follow up: Response: No adverse reaction; Marked relief of symptoms sv 09:45 Drug: NS 0.9% 1000 ml Route: IV; Rate: 1000 ml; Site: right antecubital; sv 11:30 Follow up: Response: No adverse reaction; IV Status: Completed infusion; IV Intake: sv 1000ml 09:55 CANCELLED (Duplicate Order): Adenosine 6 mg IVP in right antecubital once sv 12:00 Drug: NS 0.9% 1000 ml Route: IV; Rate: 1000 ml; Site: right antecubital; sv Intake: 11:30 IV: 1000ml; Total: 1000ml. sv Outcome: 13:57 Decision to Hospitalize by Provider. rn 17:14 Admitted to Tele accompanied by tech, via wheelchair, room 207, with oxygen, with sv chart, Report called to Amy SCHWARTZ 17:14 Condition: stable 17:14 Instructed on the need for admit. 17:38 Patient left the ED. sv Signatures: Dispatcher [employer] Mildred Bajwa RN RN Fabiola Rosales mr Linda Anders 1 Rio Sprigner MD MD rn Smirch, Shelby, RN RN Shira Marquez RN RN Corrections: (The following items were deleted from the chart) 09:55 09:33 Adenosine 6 mg IVP in right antecubital sv sv 10:07 10:05 Pulse 95bpm; Resp 19bpm; Pulse Ox 100% RA; sv sv 10:09 10:05 Pulse 95bpm; Resp 19bpm; Pulse Ox 100% RA; sv sv
--- NOTE | 2020-09-10 14:19 | P.HP ---
Certification for Inpatient Patient admitted to: Observation With expected LOS: <2 Midnights Practitioner: I am a practitioner with admitting privileges, knowledge of patient current condition, hospital course, and medical plan of care. Services: Services provided to patient in accordance with Admission requirements found in Title 42 Section 412.3 of the Code of Federal Regulations Patient History Date of Service: 09/10/20 Reason for admission: NSTEMI History of Present Illness: 40-year-old female, PMH: Hypothyroid, prior SVT episodes, presented to the ED due to palpitations. She reports feeling in her heart rate going very fast yesterday. It did not improve so she presented to the ER today. She denies any chest pain/tightness. No recent illness. Denies nausea/vomiting, no abdominal pain, no shortness of breath, no new rashes or lesions, no UTI symptoms, no diarrhea. She reports normal/typical p.o. intake. In the ED, she was noted to be in SVT to 180s, which converted to sinus rhythm after adenosine 6 mg x1. Workup notable for WBC: 11, microcytic anemia of 9.5, MCV: 67, BMP unremarkable, elevated troponin 0.6 which increased to 0.15. BNP: 871. CXR: No acute intrathoracic process suspected. History of SVT, was given prescription for beta-dusty last year, never followed up with cardiology as recommended. Allergies No Known Allergies Allergy (Verified 09/10/20 12:47) - Past Medical/Surgical History -: Hypothyroidism -: Prior SVT -: Appendectomy - Family History Family History: Reviewed- Non-Contributory - Social History Smoking Status: Never smoker Alcohol use: No Place of Residence: Home Review of Systems 10-point ROS is otherwise unremarkable Physical Examination - Physical Exam General: Alert, In no apparent distress, Oriented x3 HEENT: Sclerae nonicteric Neck: Supple, No Thyromegaly Respiratory: Clear to auscultation bilaterally, Normal air movement Cardiovascular: No edema, Regular rate/rhythm, Normal S1 S2 Gastrointestinal: Soft and benign, Non-distended, No tenderness Musculoskeletal: No erythema Integumentary: No rashes Neurological: Normal speech, Normal affect - Studies Laboratory Data (last 24 hrs) 09/10/20 09:34: WBC 11.00 H, Hgb 9.5 L, Hct 30.1 L, Plt Count 364 09/10/20 09:34: Sodium 141, Potassium 4.4, BUN 14, Creatinine 0.52 L, Glucose 115 H, Magnesium 2.2 Assessment and Plan - Advance Directives Does patient have a Living Will: No Does patient have a Durable POA for Healthcare: No Physician Review Additional Text: Problem list NSTEMI SVT Hypothyroidism -trend troponins -therapeutic Lovenox -echocardiogram and stress test ordered -start patient on beta-dusty - reports she has had a prescription, take intermittently due to forgetfulness -cardiology consulted -elevated troponin likely due to demand ischemia in setting of SVT since last night -anticipate discharge home tomorrow Time Spent Managing Pts Care (In Minutes): 60
[2020-09-10] MEDS ORDERED: METOPROLOL TAR 25 MG TAB PO SCH ×2 (15:00→21:00)
[2020-09-10 18:14] VITALS: O2SAT 100
[2020-09-10] MEDS: NA CHLORIDE 0.9% 1,000 ML IV SCH (18:45)
[2020-09-10] MEDS: ASPIRIN EC 81 MG TAB PO SCH (18:45)
[2020-09-10 18:57] VITALS: BMI 43.0
[2020-09-10 19:29] LABS: RBC Red Blood Cell Count 4.11 M/uL (3.86-4.86)
[2020-09-10 19:52] LABS: Thyroid Stimulating Hormone 0.718 uIU/mL (0.360-3.740); Troponin I 0.15 ng/mL (0.0-0.045)
[2020-09-10] MEDS: ENOXAPARIN 80 MG/0.8 ML SQ SCH (20:36)
--- NOTE | 2020-09-10 21:55 | CON ---
Date of Consultation: 09/10/2020 Reason For Consultation: SVT and elevated troponin. History Of Present Illness: This is a young female who presented with palpitations, tachycardia. De nies having chest pain, was found to be in SVT, responded to adenosine, converted to sinus rhythm and has been in sinus rhythm since. Patient states she had a problem with SVTs before. Does not have a ny chest pain or shortness of breath. No nausea, vomiting, or diarrhea. Past Medical History: History of SVT. Medications: Refer to reconciliation sheet for detailed list. Allergies: NO KNOWN DRUG ALLERGIES. Social History: Does not smoke or drink. Does not use any drugs. Review of Systems: All systems reviewed and they were negative except for mentioned in the HPI. Physical Examination: Vital Signs: Reviewed. Head and Neck: Pupils are equal, reactive to light. Intact eye movements. No JVD. No cervical lym phadenopathy. Neck: Supple. Thyroid is not enlarged. Lungs: Clear to auscultation bilaterally. No rhonchi, rales, or crackles. No accessory muscle use. Heart: Regular rate and rhythm. No extra sounds. Abdomen: Soft, nontender. Bowel sounds positive. No organomegaly. No masses or hernia. No rigidi ty or rebound. Extremities: No clubbing, cyanosis. Intact pulses. Skin: No rash. Neurologic: Alert, awake, oriented x3. No acute focal deficits appreciated. Lymph Nodes: No cervical or inguinal adenopathy. Investigations: Labs were reviewed. Her troponin was 0.1 and then 0.6. Assessment And Plan: 1.Supraventricular tachycardia converted to sinus. Start on metoprolol 25 mg twice a day and titrat e as needed and obtain echocardiogram. 2.Elevated troponin. Possible demand ischemia. However, obtain an echocardiogram and exercise nucl ear stress test to further evaluate. Start on aspirin 81 mg and beta dusty for heart rate control as above. SR/MODL Voice ID: [id number] Report ID: [id number]
[2020-09-11] MEDS: NA CHLORIDE 0.9% 1,000 ML IV SCH (06:03)
[2020-09-11 06:13] LABS: Absolute Lymphocytes (CBC) 1.8 K/uL (0.7-4.9); Basophils % 0.7 % (0-1.3); Hematocrit 25.2 % (36.0-45.0); Lymphocytes % 23.2 % (15.3-44.8); MPV 7.3 fL (7.6-11.3); RBC Red Blood Cell Count 3.71 M/uL (3.86-4.86)
[2020-09-11 06:33] LABS: ALT/SGPT 33 U/L (12-78); AST/SGOT 23 U/L (15-37); Albumin 2.7 g/dL (3.4-5.0); Alkaline Phosphatase 63 U/L (45-117); BUN Blood Urea Nitrogen 12 mg/dL (7-18); Bicarbonate 23 mmol/L (21-32); Bilirubin Total 0.3 mg/dL (0.2-1.0); Glucose Level 103 mg/dL (74-106); HDL Cholesterol 47 mg/dL (40-60); LDL Cholesterol, Calculated 76 (<130); Magnesium 2.2 mg/dL (1.8-2.4); Potassium 4.1 mmol/L (3.5-5.1); Protein, Total 6.3 g/dL (6.4-8.2); Sodium Level 144 mmol/L (136-145)
[2020-09-11] MEDS: ENOXAPARIN 80 MG/0.8 ML SQ SCH (08:14)
[2020-09-11] MEDS: ASPIRIN EC 81 MG TAB PO SCH (08:14)
[2020-09-11 08:15] LABS: Basophilic Stippling 1+; Blood Morphology Comment NOTED (NOT SEEN); Hypochromasia 1+; Platelet Estimate ADEQ; Polychromasia SLIGHT; White Blood Cell Scan OK (OK)
[2020-09-11] MEDS ORDERED: REGADENOSON 0.4 MG/5 ML SYR IV ONE (10:06)
[2020-09-11 12:48] LABS: Hematocrit 26.8 % (36.0-45.0)
--- NOTE | 2020-09-11 15:30 | RAD REPORT ---
EXAM DESCRIPTION: NM - Rest Stress Cardiac Imaging - 09/11/2020 3:15 pm CLINICAL HISTORY: NSTMEI, SVT Chest pain. COMPARISON: No comparisons TECHNIQUE: The patient was administered approximately 10mCi of Tc 99m Sestamibi prior to resting SPE CT imaging of the heart. The patient was then administered approximately 30 mCi of Tc 99m Sestamibi f ollowing exercise or pharmacologic stress. Multiplanar SPECT images were reviewed. FINDINGS: No stress induced ischemic defect is seen to suggest stress induced ischemia. No fixed def ect is seen to suggest hibernating myocardium or scarred myocardium. The end diastolic volume is 92 ml, the end systolic volume is 30 ml, and the ejection fraction is 67 %. IMPRESSION: No stress induced ischemia.
[2020-09-11 16:14] LABS: Urine Appearance CLOUDY; Urine Bilirubin NEGATIVE (NEG); Urine Blood NEGATIVE (NEG); Urine Color YELLOW; Urine Glucose NEGATIVE (NEG); Urine Protein NEGATIVE (NEG); Urine Specific Gravity >=1.030 (1.005-1.030); Urine Urobilinogen 0.2 mg/dL (0.2-1.0)
[2020-09-11 16:18] LABS: Urine Microscopic Reflex ORDER UMIC
[2020-09-11 16:41] LABS: Urine Amorphous Sediment 1+ /HPF (NONE SEEN); Urine Bacteria 20-50 /HPF (<20); Urine Mucus 3+ /HPF (NONE SEEN); Urine RBC <5 /HPF (NONE SEEN)
[2020-09-11 16:42] VITALS: BP 119/69; TEMP 97.2
--- NOTE | 2020-09-11 18:22 | P.DS ---
Admission Date: 09/11/20 Discharge Date: 09/11/20 Disposition: ROUTINE DISCHARGE Discharge Condition: FAIR Reason for Admission: NSTEMI Consultations: Cardiology-Dr. Butterfield. Brief History of Present Illness: 40-year-old woman with a history of hypothyroidism, prior history of SVT presented to the emergency department with a complaint of palpitation. Her heart rate was up to 180 in the ED. He was given adenosine which converted her from SVT to sinus rhythm. Her troponin was mildly elevated. Patient was hospitalized for further management. Hospital Course: Patient admitted admitted to the medical floor. Troponin trended flat suggesting demand ischemia. Patient was seen and evaluated by cardiology recommended echocardiogram and nuclear stress test. Both were performed. Nuclear stress test shows no stress-induced ischemic and report normal ejection fraction. Patient has been asymptomatic since she converted to sinus rhythm. Cardiology recommend beta-dusty and aspirin. Echocardiogram result is pending to be followed as an outpatient. Patient is discharged with aspirin, her Coreg is resumed but dose increased to b.i.d. her TSH is on the low side suggesting slight hyperthyroid state. Synthroid is decreased from 100 mcg to 75 mcg. Patient will follow with Dr. Ruiz as an outpatient. Vital Signs/Physical Exam: Temp Pulse Resp BP Pulse Ox 97.2 F 98 H 17 119/69 97 09/11/20 16:00 09/11/20 16:00 09/11/20 16:00 09/11/20 16:00 09/11/20 16:00 General: Alert, In no apparent distress, Oriented x3 HEENT: Mucous membr. moist/pink Neck: Supple, JVD not distended Respiratory: Clear to auscultation bilaterally, Normal air movement Cardiovascular: No edema, Regular rate/rhythm, Normal S1 S2 Gastrointestinal: Normal bowel sounds, Soft and benign, Non-distended, No tenderness Musculoskeletal: No swelling, No tenderness Integumentary: No rashes Neurological: Normal strength at 5/5 x4 extr, Cranial nerves 3-12 intact Laboratory Data at Discharge: WBC 7.60 K/uL (4.3-10.9) D 09/11/20 05:51 Hgb 8.2 g/dL (12.0-15.0) L 09/11/20 12:27 Hct 26.8 % (36.0-45.0) L 09/11/20 12:27 Plt Count 254 K/uL (152-406) D 09/11/20 05:51 Sodium 144 mmol/L (136-145) 09/11/20 05:51 Potassium 4.1 mmol/L (3.5-5.1) 09/11/20 05:51 BUN 12 mg/dL (7-18) 09/11/20 05:51 Creatinine 0.36 mg/dL (0.55-1.3) L 09/11/20 05:51 Glucose 103 mg/dL (74-106) 09/11/20 05:51 Magnesium 2.2 mg/dL (1.8-2.4) 09/11/20 05:51 Total Bilirubin 0.3 mg/dL (0.2-1.0) 09/11/20 05:51 AST 23 U/L (15-37) 09/11/20 05:51 ALT 33 U/L (12-78) 09/11/20 05:51 Alkaline Phosphatase 63 U/L (45-117) 09/11/20 05:51 Troponin I 0.10 ng/mL (0.0-0.045) H 09/11/20 00:36 Triglycerides 134 mg/dL (<150) 09/11/20 05:51 Cholesterol 150 mg/dL (<200) 09/11/20 05:51 HDL Cholesterol 47 mg/dL (40-60) 09/11/20 05:51 Cholesterol/HDL Ratio 3.19 09/11/20 05:51 Home Medications: Aspirin [Aspirin EC] 81 mg PO DAILY #30 tablet. 09/11/20 Carvedilol [Coreg] 3.125 mg PO BID #60 09/11/20 Levothyroxine Sodium [Levothyroxine] 75 mcg PO DAILY #30 capsule 09/11/20 New Medications: Aspirin [Aspirin EC] 81 mg PO DAILY #30 tablet. Carvedilol [Coreg] 3.125 mg PO BID #60 Levothyroxine Sodium [Levothyroxine] 75 mcg PO DAILY #30 capsule Diet: AHA Activity: Ad colin Followup: NONE,NONE [Primary Care Provider] - 1-2 Weeks Young Ruiz MD [ACTIVE - CAN ADMIT] - (within 2 weeks.) Time spent managing pt's care (in minutes): 36
[2020-09-11] MEDS ORDERED: ENOXAPARIN 100 MG/ML SYR SQ SCH (21:00)
--- NOTE | 2020-09-12 09:55 | ECHO ---
HEIGHT: 5 ft 2 in WEIGHT: 235 lb 0 oz DATE OF STUDY: 09/11/[address]: William Springer MD 2-DIMENSIONAL: YES M.MODE: YES DOPPLER: YES COLOR FLOW: YES TDS: PORTABLE: DEFINITY: BUBBLE STUDY: DIAGNOSIS: SUPRAVENTRICULAR TACHYCARDIA, NON ST ELEVATION MYOCARDIAL INFARCTION CARDIAC HISTORY: CATHERIZATION: NO SURGERY: NO PROSTHETIC VALVE: NO PACEMAKER: NO MEASUREMENTS (cm) DIASTOLIC (NORMALS) SYSTOLIC (NORMALS) IVSd 1.2 (0.6-1.2) LA Diam 2.8 (1.9-4.0) LVEF 55% LVIDd 3.8 (3.5-5.7) LVIDs 2.8 (2.0-3.5) %FS 28% LVPWd 1.1 (0.6-1.2) Ao Diam 2.5 (2.0-3.7) 2 DIMENSIONAL ASSESSMENT: RIGHT ATRIUM: NORMAL LEFT ATRIUM: NORMAL RIGHT VENTRICLE: NORMAL LEFT VENTRICLE: NORMAL TRICUSPID VALVE: NORMAL MITRAL VALVE: NORMAL PULMONIC VALVE: NORMAL AORTIC VALVE: NORMAL PERICARDIAL EFFUSION: NONE AORTIC ROOT: NORMAL LEFT VENTRICULAR WALL MOTION: NORMAL DOPPLER/COLOR FLOW: NORMAL COMMENTS: NORMAL 2-DIMENSIONAL ECHOCARDIOGRAM WITH DOPPLER. NO WALL MOTION ABNORMALITY. NO EFFUSION. TECHNOLOGIST: AURE MARTINES
--- NOTE | 2020-09-12 10:37 | TREADPHA ---
DX: NON ST ELEVATION MYOCARDIAL INFARCTION, SUPRAVENTRICULAR TACHYCARDIA Date of Study: 09/11/2020 Ht: 5' 2 " Wt: 235 lb 0 oz Consulting Physician: DENA MEDICATIONS: ASPIRIN, LOVENOX HISTORY: HYPOTHYROIDISM PHYSICIAL EXAMINATION: RESTING B.P.: 130/87 RESTING H.R.: 79 RESTING EKG: PROTOCOL: PHARMACOLOGIC EXERCISE TIME: 3:30 B.P. AT [place]AK STRESS: 134/74 IMPRESSION: LEXISCAN INJECTED. CARDIOLITE INJECTED (SEE NUCLEAR MEDICINE REPORT). COMPLAINTS OF CHEST PAIN OR SHORTNESS OF BREATH. NO VENTRICULAR TACHYCARDIA. NO ARRHYTHMIAS.
--- NOTE | 2020-09-12 15:02 | CON ---
Date of Consultation: 09/11/2020 Reason For Consultation: SVT and elevated troponin. History Of Present Illness: Ms. Eduardo is a 40-year-old [place] woman with history of hypot hyroidism. No previous cardiac history. Has a history of chronic anemia, came in with supraventricu lar tachycardia requiring 1 dose of Adenocard in the emergency room, she converted back to sinus rhyt hm. She had some chest pressure with it. Denied any nausea, vomiting, diaphoresis, PND, orthopnea, pedal edema. She denied any syncope. She had palpitation and shortness of breath. Past Medical History: As stated above. Allergies: NONE. Review of Systems: Negative. Social History: Negative. Family History: Noncontributory. Physical Examination: Vital Signs: This morning vital signs were stable. She was in sinus rhythm. HEENT: Negative. Neck: Supple with no lymphadenopathy, JVD, or thyromegaly. Chest: Clear. Cardiac: Revealed regular rhythm and rate. No murmurs, gallops, or rubs. Abdomen: Benign. Extremities: Revealed no clubbing, cyanosis, or edema. Diagnostic Data: Her EKG now is normal. Chest x-ray is normal. Troponin is 0.15. White count is 1 1, hemoglobin is 9.5. BNP is 871. Impression And Plan: Supraventricular tachycardia causing elevated troponin and elevated BNP. Echoc ardiogram is pending. Lexiscan is pending. She needs to be discharged after those test on beta-bloc kers and we will see her in the office as an outpatient. If her SVT continue to reoccur despite beta blockade, then we will consider an ablation. This is not an acute coronary syndrome and a heart cat heterization is not planned at this point. If the Lexiscan is abnormal, we will reconsider that issu e. Her anemia is chronic and her hypothyroidism is stable and controlled. NB/MODL Voice ID: [id number] Report ID: [id number]
== END 2020-09-11 18:55 | disposition home or self-care (01) | DRG 282 ==
LOC: ER 09:18 → ERHOLD 14:13 → 2ND 17:37 → OBSVTOIN 09-11 07:50
PROVIDERS: ADMIT Hospitalist; ATTEND Internal Medicine
DX: I47.1 Supraventricular tachycardia (principal); I21.A1 Myocardial infarction type 2; D50.9 Iron deficiency anemia, unspecified; E03.9 Hypothyroidism, unspecified; Z90.49 Acquired absence of other specified parts of digestive tract; Z79.82 Long term (current) use of aspirin; Z79.890 Hormone replacement therapy; Z79.899 Other long term (current) drug therapy; Z20.822 Contact with and (suspected) exposure to COVID-19
CPT/HCPCS: 36415; 71045; 78452; 80048; 80053; 80061; 81003; 81015; 82728; 83010; 83540; 83615; 83735; 83880; 84439; 84443; 84466; 84484; 85014; 85018; 85025; 85044; 87086; 87088; 93005; 93017; 93306; 94760; 96361; 96374; 99291; 99292; A9500; G0378; J0153; J1644; J2785; J7030; U0003

== ENCOUNTER 2022-12-13 08:32 | Emergency (ER) | payer OTHER, SELFPAY ==
--- OUTSIDE RECORDS SUMMARY | 2022-12-13 08:39 | XMS REPORT | Continuity of Care Document ---
:[address] [facility] t Address [address] [place] [address] [address] [place] [address] Care Team Providers Name Role Phone CATA PRINGLE Primary Care Physician Unavailable HOWIE STUBBS Attending Clinician Unavailable DOCTOR UNASSIGNED, NO NAME Attending Clinician Unavailable KHUSHBU FONG Attending Clinician Unavailable 2, [facility] Attending Clinician Unavailable Khushbu Fong MD Attending Clinician Howie Stubbs MD Attending Clinician Doctor Unassigned, [place] Attending Clinician Unavailable Debra CLAY Attending Clinician Unavailable Debra Wyatt Attending Clinician EDGAR GIORDANO Attending Clinician Unavailable Edgar Giordano DO Attending Clinician Yvonne Hoskins MA Attending Clinician Unavailable [facility]In Attending Clinician Unavailable Denita Person Attending Clinician [phone] DR STEPHEN ANDREW Attending Clinician Unavailable GC_EBMD_Patricia_Kadeem Attending Clinician Unavailable Otilia Gomez Attending Clinician [phone] Tavares Horvath Attending Clinician [phone] ANGELLA CATALAN Attending Clinician Unavailable LINDSEYS Attending Clinician Unavailable KLEBER LOMELI Attending Clinician Unavailable Kleber Fagan Attending Clinician Elvia Watson MD Attending Clinician ELVIA WATSON Attending Clinician Unavailable Aranza Serrano Attending Clinician [phone] Francois SCHWARTZ, Sandy Edge Attending Clinician Ha Conti Attending Clinician Tevin RAPHAEL, Omkar Attending Clinician Cesar Mims MD Attending Clinician JASSON GARCIA Attending Clinician Unavailable JASSON GARCIA Attending Clinician Unavailable MAHIN SEWELL Attending Clinician Unavailable MAHIN SEWELL Attending Clinician Unavailable HOWIE STUBBS Admitting Clinician Unavailable LIANA KIMBROUGH Admitting Clinician Unavailable Debra CLAY Admitting Clinician Unavailable EDGAR GIORDANO Admitting Clinician Unavailable [facility] Admitting Clinician Unavailable DR STEPHEN ANDREW Admitting Clinician Unavailable GC_EBMD_Patricia_Kadeem Admitting Clinician Unavailable EBONI_Danial Admitting Clinician Unavailable KLEBER LOMELI Admitting Clinician Unavailable Cesar Mims MD Admitting Clinician JULIAN SCHULTE Admitting Clinician Unavailable MAHIN SEWELL Admitting Clinician Unavailable Payers Payer Name Policy Type Policy Number Effective Date Expiration Date [facility] [id number] 2022 CHOICE 00:00:00 COMMERCIAL [id number] 2021 NON-CONTRACT 00:00:00 GENERIC [facility] [id number] 2021 NON-CONTRACT 00:00:00 [employer] [facility] [id number] 2021 00:00:00 Problems Condition Condition Condition Status Onset Resolution Last Treating Co mments Source Name Details Category Date Date Treatment Clinician Date 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 00:00: deoxyribon Deoxyribon 00 ucleic ucleic acid test Acid Test positive, Positive, high risk High Risk on on cervical Cervical specimen Specimen Hypothyroi Hypothyroi Problem Active [facility] dism dism 3- Medical 00:00: 00 Essential Essential Problem Active [facility] via hypertensi Hypertensi 3-02 Me dical on on 00:00: 00 Hypothyroi Hypothyroi Problem Active [facility] dism dism 07-10 Medical 00:00: 00 Anemia Anemia Problem Active [facility] 07-10 Medical 00:00: 00 Hypertensi Hypertensi Problem Active [facility] ve ve 07-10 Medical disorder Disorder 00:00: 00 Female Female Problem Active [facility] stress Stress 07-10 Medical incontinen Incontinen 00:00: ce ce 00 Hypothyroi Hypothyroi Disease Active 2020-06 U nivers dism dism 0-19 ity of 00:00: [place] [facility] Other iron Other iron Disease Active U nivers deficiency deficiency 7 it y of anemia anemia 00:00: [place] 00 Medical Branch Essential Essential Disease Active Uni vers hypertensi hypertensi 6-09 it y of on on 00:00: [place] 00 Medical Branch Elevated Elevated Disease Active Unive rs troponin I troponin I 6-09 it y of level level 00:00: [place] 00 Medical Branch Elevated Elevated Disease Active Unive rs brain brain 6-09 ity of natriureti natriureti 00:[place] c peptide c peptide 00 Medi ivy (BNP) (BNP) Branch level level Morbid Morbid Disease Active [facility] obesity obesity 6-08 ity of with body with body 00:00: [place] mass index mass index 00 Me dical of of Branch 40.0-49.9 40.0-49.9 SVT SVT Disease Active Univers (supravent (supravent 6-08 it y of ricular ricular 00:00: [place] tachycardi tachycardi 00 Me dical a) a) Branch Stress Stress Disease Active 2019-06 [facility] incontinen incontinen 0-22 it y of ce ce 00:00: [place] (female) (female) 00 Medica l (male) (male) Branch Constipati Constipati Disease Active 2018-06 U nivers on on 0-14 ity of 00:00: [place] 00 Medical Branch Allergies, Adverse Reactions, Alerts Allergy Allergy Status Severity Reaction(s) Onset Inactive Treating Comm ents Source Name Type Date Date Clinician NO KNOWN Drug Active Univers ALLERGIE Class ity of S [facility] Social History Social Habit Start Date Stop Date Quantity Comments Source Exposure to 2022-11-03 2022-11-13 Not sure [facility]-CoV-2 00:00:00 11:28:00 [place] [facility] (event) Branch Tobacco use and 2020-11-27 2020-11-27 Smokeless tobacco Un iversity of exposure 00:00:00 00:00:00 non-user [facility] Sex Assigned At [birth year] Universit y of 00:00:00 00:00:00 [facility] Smoking Status Start Date Stop Date Source Never smoked tobacco [facility] Medications Ordered Filled Start Stop Current Ordering Indication Dosage Frequency Signature Comments Components Source Medication Medication Date Date Medication? Clinician (SIG) Name Name adenosine 2022- No 6mg 6 mg, IV Uni vers (ADENOCARD 08-22 Push, ity of IV) 15:45: 15:44 ONCE, 1 [place] injection 6 00 :00 dose, On Medi ivy mg 08/22/22 Branch at 0945, JENNYFER carvediloL 2022- No [id number] 37.5mg Take 1.5 Univers 25 mg 08-22 tablets by ity of tablet 00:00: 04:59 mouth in [place] 00 :00 the Medical morning Branch and 1.5 tablets in the evening. Do all this for 30 days. ferrous Yes ferrous Univers sulfate 325 2-13 sulfate ity o f mg (65 mg 10:56: 325 mg (65 [place] iron) 11 mg iron) Medical tablet tablet Branch Take 1 tablet every day by oral route. oxybutynin Yes oxybutynin U nivers XL 5 mg 24 2-13 chloride ity o f hr tablet 10:56: ER 5 mg [place] 11 tablet,ext Medical ended Branch release 24 hr Take 1 tablet every day by oral route. ferrous Yes ferrous Univers sulfate 325 2-13 sulfate ity o f mg (65 mg 10:56: 325 mg (65 [place] iron) 11 mg iron) Medical tablet tablet Branch Take 1 tablet every day by oral route. oxybutynin 2023-0 Yes oxybutynin U nivers XL 5 mg 24 2-13 chloride ity o f hr tablet 10:56: ER 5 mg [place] 11 tablet,ext Medical ended Branch release 24 hr Take 1 tablet every day by oral route. ferrous 2022-0 Yes ferrous [facility] sulfate 325 2-13 sulfate ity o f mg (65 mg 10:56: 325 mg (65 [place] iron) 11 mg iron) Medical tablet tablet Branch Take 1 tablet every day by oral route. oxybutynin 0 Yes oxybutynin U nivers XL 5 mg 24 2-13 chloride ity o f hr tablet 10:56: ER 5 mg [place] 11 tablet,ext Medical ended Branch release 24 hr Take 1 tablet every day by oral route. ferrous 2022-0 Yes ferrous Univers sulfate 325 2-13 sulfate ity o f mg (65 mg 10:56: 325 mg (65 [place] iron) 11 mg iron) Medical tablet tablet Branch Take 1 tablet every day by oral route. oxybutynin 2022-0 Yes oxybutynin U nivers XL 5 mg 24 2-13 chloride ity o f hr tablet 10:56: ER 5 mg [place] 11 tablet,ext Medical ended Branch release 24 hr Take 1 tablet every day by oral route. ferrous 2022-0 Yes ferrous [facility] sulfate 325 2-13 sulfate ity o f mg (65 mg 10:56: 325 mg (65 [place] iron) 11 mg iron) Medical tablet tablet Branch Take 1 tablet every day by oral route. oxybutynin 2022-0 Yes oxybutynin U nivers XL 5 mg 24 2-13 chloride ity o f hr tablet 10:56: ER 5 mg [place] 11 tablet,ext Medical ended Branch release 24 hr Take 1 tablet every day by oral route. ferrous 2022-0 Yes ferrous Univers sulfate 325 2-13 sulfate ity o f mg (65 mg 10:56: 325 mg (65 [place] iron) 11 mg iron) Medical tablet tablet Branch Take 1 tablet every day by oral route. oxybutynin 2022-0 Yes oxybutynin U nivers XL 5 mg 24 2-13 chloride ity o f hr tablet 10:56: ER 5 mg [place] 11 tablet,ext Medical ended Branch release 24 hr Take 1 tablet every day by oral route. ferrous 2022-0 Yes ferrous [facility] sulfate 325 2-13 sulfate ity o f mg (65 mg 10:56: 325 mg (65 [place] iron) 11 mg iron) Medical tablet tablet Branch Take 1 tablet every day by oral route. oxybutynin 0 Yes oxybutynin U nivers XL 5 mg 24 2-13 chloride ity o f hr tablet 10:56: ER 5 mg [place] 11 tablet,ext Medical ended Branch release 24 hr Take 1 tablet every day by oral route. ferrous Yes ferrous Univers sulfate 325 2-13 sulfate ity o f mg (65 mg 10:56: 325 mg (65 [place] iron) 11 mg iron) Medical tablet tablet Branch Take 1 tablet every day by oral route. oxybutynin 0 Yes oxybutynin U nivers XL 5 mg 24 2-13 chloride ity o f hr tablet 10:56: ER 5 mg [place] 11 tablet,ext Medical ended Branch release 24 hr Take 1 tablet every day by oral route. ferrous Yes ferrous Univers sulfate 325 2-13 sulfate ity o f mg (65 mg 10:56: 325 mg (65 [place] iron) 11 mg iron) Medical tablet tablet Branch Take 1 tablet every day by oral route. oxybutynin Yes oxybutynin U nivers XL 5 mg 24 2-13 chloride ity o f hr tablet 10:56: ER 5 mg [place] 11 tablet,ext Medical ended Branch release 24 hr Take 1 tablet every day by oral route. ferrous Yes ferrous Univers sulfate 325 2-13 sulfate ity o f mg (65 mg 10:56: 325 mg (65 [place] iron) 11 mg iron) Medical tablet tablet Branch Take 1 tablet every day by oral route. oxybutynin 0 Yes oxybutynin U nivers XL 5 mg 24 2-13 chloride ity o f hr tablet 10:56: ER 5 mg [place] 11 tablet,ext Medical ended Branch release 24 hr Take 1 tablet every day by oral route. ferrous 2022-0 Yes ferrous Univers sulfate 325 2-13 sulfate ity o f mg (65 mg 10:56: 325 mg (65 [place] iron) 11 mg iron) Medical tablet tablet Branch Take 1 tablet every day by oral route. oxybutynin 0 Yes oxybutynin U nivers XL 5 mg 24 2-13 chloride ity o f hr tablet 10:56: ER 5 mg [place] 11 tablet,ext Medical ended Branch release 24 hr Take 1 tablet every day by oral route. ferrous 2022-0 Yes ferrous Univers sulfate 325 2-13 sulfate ity o f mg (65 mg 10:56: 325 mg (65 [place] iron) 11 mg iron) Medical tablet tablet Branch Take 1 tablet every day by oral route. oxybutynin 2022-0 Yes oxybutynin U nivers XL 5 mg 24 2-13 chloride ity o f hr tablet 10:56: ER 5 mg [place] 11 tablet,ext Medical ended Branch release 24 hr Take 1 tablet every day by oral route. ferrous 2022-0 Yes ferrous Univers sulfate 325 2-13 sulfate ity o f mg (65 mg 10:56: 325 mg (65 [place] iron) 11 mg iron) Medical tablet tablet Branch Take 1 tablet every day by oral route. oxybutynin 2022-0 Yes oxybutynin U nivers XL 5 mg 24 2-13 chloride ity o f hr tablet 10:56: ER 5 mg [place] 11 tablet,ext Medical ended Branch release 24 hr Take 1 tablet every day by oral route. diltiazem 2022-0 Yes [id number] Take 1 Uni vers 60 mg 2-13 tablet ity of tablet 00:00: when you [place] 00 have fast Medical heart rate Branch diltiazem 3-0 Yes [id number] Take 1 Uni vers 60 mg 2-13 tablet ity of tablet 00:00: when you [place] 00 have fast Medical heart rate Branch diltiazem 2023-0 Yes [id number] Take 1 Uni vers 60 mg 2-13 tablet ity of tablet 00:00: when you [place] 00 have fast Medical heart rate Branch diltiazem 2023-0 Yes [id number] Take 1 Uni vers 60 mg 2-13 tablet ity of tablet 00:00: when you [place] 00 have fast Medical heart rate Branch diltiazem 2023-0 Yes [id number] Take 1 Uni vers 60 mg 2-13 tablet ity of tablet 00:00: when you [place] 00 have fast Medical heart rate Branch diltiazem 2023-0 Yes [id number] Take 1 Uni vers 60 mg 2-13 tablet ity of tablet 00:00: when you [place] 00 have fast Medical heart rate Branch diltiazem 2023-0 Yes [id number] Take 1 Uni vers 60 mg 2-13 tablet ity of tablet 00:00: when you [place] have fast Medical heart rate Branch diltiazem 2022-0 Yes [id number] Take 1 Uni vers 60 mg 2-13 tablet ity of tablet 00:00: when you [place] have fast Medical heart rate Branch diltiazem 2022-0 Yes [id number] Take 1 Uni vers 60 mg 2-13 tablet ity of tablet 00:00: when you [place] have fast Medical heart rate Branch diltiazem 2022-0 Yes [id number] Take 1 Uni vers 60 mg 2-13 tablet ity of tablet 00:00: when you [place] have fast Medical heart rate Branch diltiazem 2022-0 Yes [id number] Take 1 Uni vers 60 mg 2-13 tablet ity of tablet 00:00: when you [place] have fast Medical heart rate Branch diltiazem 2022-0 Yes [id number] Take 1 Uni vers 60 mg 2-13 tablet ity of tablet 00:00: when you [place] have fast Medical heart rate Branch diltiazem 2022-0 Yes [id number] Take 1 Uni vers 60 mg 2-13 tablet ity of tablet 00:00: when you [place] have fast Medical heart rate Branch TAKE 15 ML 2021-06 No DAILY. 06-22 00:00: 00 TAKE 1 2021-0 No TABLET 9-30 DAILY. 00:00: 00 TAKE 1 2021-0 No 100 TABLET 9-30 DAILY. 00:00: 00 adenosine 2021-0 2021- No 6mg 6 mg, IV Uni vers (ADENOCARD 01-2910 Push, ity of IV) 16:15: 15:55 ONCE, 1 [place] injection 6 00 :00 dose, On Medi ivy mg Wed Branch 01/29/22 at 1115, STAT diltiazem 2021-0 Yes 60mg 60 mg, Univer s (CARDIZEM) 6-07 Oral, Q6H, ity of tablet 60 17:00: First dose [place] mg 00 on Tue Medical 11/26/21 at Branch 1200, Until Discontinu ed, Routine NaCl 0.9% 0 2021- No 1000mL at 999 Uni vers (NS) bolus 6- 06-07 mL/hr, ity of infusion 15:15: 16:40 1,000 mL, [place] as 1,000 mL 00 :00 IV Medical Infusion, Branch ONCE, 1 dose, On Thu11/26/21 at 1015, STAT Dose 2022-0 No Unknown 4-07 00:00: 00 Dose 2022-0 No Unknown 4-07 00:00: 00 Dose 2022-0 No Unknown 4-07 00:00: 00 Dose 2022-0 No Unknown 4-07 00:00: 00 Dose 2022-0 No Unknown 4-07 00:00: 00 Dose 2022-0 No Unknown 4-07 00:00: 00 Dose 2022-0 No Unknown 4-07 00:00: 00 Dose 2022-0 No Unknown 4-07 00:00: 00 Dose 2022-0 No Unknown 4-07 00:00: 00 Dose 2022-0 No Unknown 4-06 00:00: 00 Dose 2022-0 No Unknown 4-06 00:00: 00 Dose 2022-0 No Unknown 4-06 00:00: 00 Dose 2022-0 No Unknown 4-06 00:00: 00 Dose 2022-0 No Unknown 4-06 00:00: 00 Dose 2022-0 No Unknown 4-06 00:00: 00 Dose 2022-0 No Unknown 4-06 00:00: 00 Dose 2022-0 No Unknown 4-06 00:00: 00 Dose 2022-0 No Unknown 4-06 00:00: 00 Dose 2022-0 No Unknown 4-06 00:00: 00 Dose 2022-0 No Unknown 4-06 00:00: 00 Dose 2022-0 No Unknown 4-06 00:00: 00 Dose 2022-0 No Unknown 4-06 00:00: 00 Dose 2022-0 No Unknown 4-06 00:00: 00 Dose 2022-0 No Unknown 4-06 00:00: 00 Dose 2022-0 No Unknown 4-06 00:00: 00 Dose 2022-0 No Unknown 4-06 00:00: 00 Dose 2022-0 No Unknown 4-06 00:00: 00 Dose 2022-0 No Unknown 4-06 00:00: 00 Dose 2022-0 No Unknown 4-06 00:00: 00 Dose 2022-0 No Unknown 4-06 00:00: 00 oxybutynin 2022-0 Yes [id number] 1{patch Apply 1 Univers (OXYTROL) 1-31 } Patch to ity of 3.9 mg/24 00:00: skin 2 [place] hr patch 00 (two) Medical times per Branch week. oxybutynin Yes [id number] 1{patch Apply 1 Univers (OXYTROL) 1-31 } Patch to ity of 3.9 mg/24 00:00: skin 2 [place] hr patch 00 (two) Medical times per Branch week. oxybutynin Yes [id number] 1{patch Apply 1 Univers (OXYTROL) 1-31 } Patch to ity of 3.9 mg/24 00:00: skin 2 [place] hr patch 00 (two) Medical times per Branch week. oxybutynin Yes [id number] 1{patch Apply 1 Univers (OXYTROL) 1-31 } Patch to ity of 3.9 mg/24 00:00: skin 2 [place] hr patch 00 (two) Medical times per Branch week. oxybutynin Yes [id number] 1{patch Apply 1 Univers (OXYTROL) 1-31 } Patch to ity of 3.9 mg/24 00:00: skin 2 [place] hr patch 00 (two) Medical times per Branch week. oxybutynin Yes [id number] 1{patch Apply 1 Univers (OXYTROL) 1-31 } Patch to ity of 3.9 mg/24 00:00: skin 2 [place] hr patch 00 (two) Medical times per Branch week. oxybutynin Yes [id number] 1{patch Apply 1 Univers (OXYTROL) 1-31 } Patch to ity of 3.9 mg/24 00:00: skin 2 [place] hr patch 00 (two) Medical times per Branch week. oxybutynin Yes [id number] 1{patch Apply 1 Univers (OXYTROL) 1-31 } Patch to ity of 3.9 mg/24 00:00: skin 2 [place] hr patch 00 (two) Medical times per Branch week. oxybutynin Yes [id number] 1{patch Apply 1 Univers (OXYTROL) 1-31 } Patch to ity of 3.9 mg/24 00:00: skin 2 [place] hr patch 00 (two) Medical times per Branch week. oxybutynin 2021-0 Yes [id number] 1{patch Apply 1 Univers (OXYTROL) 1-31 } Patch to ity of 3.9 mg/24 00:00: skin 2 [place] hr patch 00 (two) Medical times per Branch week. oxybutynin 2021-0 Yes [id number] 1{patch Apply 1 Univers (OXYTROL) 1-31 } Patch to ity of 3.9 mg/24 00:00: skin 2 [place] hr patch 00 (two) Medical times per Branch week. oxybutynin 2021- Yes [id number] 1{patch Apply 1 Univers (OXYTROL) 1-31 } Patch to ity of 3.9 mg/24 00:00: skin 2 [place] hr patch 00 (two) Medical times per Branch week. oxybutynin 2021-0 Yes [id number] 1{patch Apply 1 Univers (OXYTROL) 1-31 } Patch to ity of 3.9 mg/24 00:00: skin 2 [place] hr patch 00 (two) Medical times per Branch week. oxybutynin 2021-0 Yes [id number] 1{patch Apply 1 Univers (OXYTROL) 1-31 } Patch to ity of 3.9 mg/24 00:00: skin 2 [place] hr patch 00 (two) Medical times per Branch week. oxybutynin 2021-0 Yes [id number] 1{patch Apply 1 Univers (OXYTROL) 1-31 } Patch to ity of 3.9 mg/24 00:00: skin 2 [place] hr patch 00 (two) Medical times per Branch week. oxybutynin 2021-0 Yes [id number] 1{patch Apply 1 Univers (OXYTROL) 1-31 } Patch to ity of 3.9 mg/24 00:00: skin 2 [place] hr patch 00 (two) Medical times per Branch week. oxybutynin 2021-0 Yes [id number] 1{patch Apply 1 Univers (OXYTROL) 1-31 } Patch to ity of 3.9 mg/24 00:00: skin 2 [place] hr patch 00 (two) Medical times per Branch week. oxybutynin 2021-0 Yes [id number] 1{patch Apply 1 Univers (OXYTROL) 1-31 } Patch to ity of 3.9 mg/24 00:00: skin 2 [place] hr patch 00 (two) Medical times per Branch week. oxybutynin 2022-0 Yes [id number] 1{patch Apply 1 Univers (OXYTROL) 1-31 } Patch to ity of 3.9 mg/24 00:00: skin 2 [place] hr patch 00 (two) Medical times per Branch week. oxybutynin 2022-0 Yes [id number] 1{patch Apply 1 Univers (OXYTROL) 1-31 } Patch to ity of 3.9 mg/24 00:00: skin 2 [place] hr patch 00 (two) Medical times per Branch week. diltiazem 2022-0 Yes [id number] Take 1 Uni vers 60 mg 1-26 tablet ity of tablet 00:00: when you [place] 00 have fast Medical heart rate Branch diltiazem 2022-0 Yes [id number] Take 1 Uni vers 60 mg 1-26 tablet ity of tablet 00:00: when you [place] 00 have fast Medical heart rate Branch diltiazem 2022-0 Yes [id number] Take 1 Uni vers 60 mg 1-26 tablet ity of tablet 00:00: when you [place] 00 have fast Medical heart rate Branch diltiazem 2022-0 Yes [id number] Take 1 Uni vers 60 mg 1-26 tablet ity of tablet 00:00: when you [place] 00 have fast Medical heart rate Branch diltiazem 2022-0 Yes [id number] Take 1 Uni vers 60 mg 1-26 tablet ity of tablet 00:00: when you [place] 00 have fast Medical heart rate Branch diltiazem 2022-0 Yes [id number] Take 1 Uni vers 60 mg 1-26 tablet ity of tablet 00:00: when you [place] 00 have fast Medical heart rate Branch diltiazem 2022-0 Yes [id number] Take 1 Uni vers 60 mg 1-26 tablet ity of tablet 00:00: when you [place] 00 have fast Medical heart rate Branch diltiazem 2022-0 2023- No [id number] Take 1 Un rupal 60 mg 1-26 02-13 tablet ity of tablet 00:00: 00:00 when you [place] 00 :00 have fast Medical heart rate Branch diltiazem 2022-0 2023- No [id number] Take 1 Un rupal 60 mg 1-26 02-13 tablet ity of tablet 00:00: 00:00 when you [place] 00 :00 have fast Medical heart rate Branch levothyroxi 2022-0 Yes [id number] 100ug Take 1 Univers ne 100 mcg 1-12 tablet by ity of tablet 00:00: mouth [place] 00 every Medical morning. Branch levothyroxi 2022-0 Yes [id number] 100ug Take 1 Univers ne 100 mcg 1-12 tablet by ity of tablet 00:00: mouth [place] 00 every Medical morning. Branch levothyroxi 2022-0 Yes [id number] 100ug Take 1 Univers ne 100 mcg 1-12 tablet by ity of tablet 00:00: mouth [place] 00 every Medical morning. Branch levothyroxi 2-0 Yes [id number] 100ug Take 1 Univers ne 100 mcg 1-12 tablet by ity of tablet 00:00: mouth [place] 00 every Medical morning. Branch levothyroxi 2022-0 Yes [id number] 100ug Take 1 Univers ne 100 mcg 1-12 tablet by ity of tablet 00:00: mouth [place] 00 every Medical morning. Branch levothyroxi 2022-0 Yes [id number] 100ug Take 1 Univers ne 100 mcg 1-12 tablet by ity of tablet 00:00: mouth [place] 00 every Medical morning. Branch levothyroxi 2-0 Yes [id number] 100ug Take 1 Univers ne 100 mcg 1-12 tablet by ity of tablet 00:00: mouth [place] 00 every Medical morning. Branch levothyroxi 2022-0 Yes [id number] 100ug Take 1 Univers ne 100 mcg 1-12 tablet by ity of tablet 00:00: mouth [place] 00 every Medical morning. Branch levothyroxi 2022-0 Yes [id number] 100ug Take 1 Univers ne 100 mcg 1-12 tablet by ity of tablet 00:00: mouth [place] 00 every Medical morning. Branch levothyroxi 2022-0 Yes [id number] 100ug Take 1 Univers ne 100 mcg 1-12 tablet by ity of tablet 00:00: mouth [place] 00 every Medical morning. Branch levothyroxi 2022-0 Yes [id number] 100ug Take 1 Univers ne 100 mcg 1-12 tablet by ity of tablet 00:00: mouth [place] 00 every Medical morning. Branch levothyroxi 2022-0 Yes [id number] 100ug Take 1 Univers ne 100 mcg 1-12 tablet by ity of tablet 00:00: mouth [place] 00 every Medical morning. Branch levothyroxi 2021-0 Yes [id number] 100ug Take 1 Univers ne 100 mcg 1-12 tablet by ity of tablet 00:00: mouth [place] 00 every Medical morning. Branch levothyroxi 2021-0 Yes [id number] 100ug Take 1 Univers ne 100 mcg 1-12 tablet by ity of tablet 00:00: mouth [place] 00 every Medical morning. Branch levothyroxi 2021-0 Yes [id number] 100ug Take 1 Univers ne 100 mcg 1-12 tablet by ity of tablet 00:00: mouth [place] 00 every Medical morning. Branch levothyroxi 2021-0 Yes [id number] 100ug Take 1 Univers ne 100 mcg 1-12 tablet by ity of tablet 00:00: mouth [place] 00 every Medical morning. Branch levothyroxi 2021-0 Yes [id number] 100ug Take 1 [facility] ne 100 mcg 1-12 tablet by ity of tablet 00:00: mouth [place] 00 every Medical morning. Branch levothyroxi 2021-0 Yes [id number] 100ug Take 1 [facility] ne 100 mcg 1-12 tablet by ity of tablet 00:00: mouth [place] 00 every Medical morning. Branch levothyroxi 2021-0 Yes [id number] 100ug Take 1 [facility] ne 100 mcg 1-12 tablet by ity of tablet 00:00: mouth [place] 00 every Medical morning. Branch levothyroxi 2021-0 Yes [id number] 100ug Take 1 [facility] ne 100 mcg 1-12 tablet by ity of tablet 00:00: mouth [place] 00 every Medical morning. Rea SERTraline 2020-06 Yes [id number] 50mg Take 1 Univers 50 mg 0-19 tablet by ity of tablet 00:00: mouth [place] 00 daily. Medical Start with Branch 1/2 tab daily for 1 week, then 1 tab daily for 1 week, then 2 tabs daily SERTraline 2020-06 Yes [id number] 50mg Take 1 Univers 50 mg 0-19 tablet by ity of tablet 00:00: mouth [place] 00 daily. Medical Start with Branch 1/2 tab daily for 1 week, then 1 tab daily for 1 week, then 2 tabs daily SERTraline 2020-06 Yes [id number] 50mg Take 1 [facility] 50 mg 0-19 tablet by ity of tablet 00:00: mouth [place] 00 daily. Medical Start with Branch 1/2 tab daily for 1 week, then 1 tab daily for 1 week, then 2 tabs daily SERTraline 2020-06 Yes [id number] 50mg Take 1 [facility] 50 mg 0-19 tablet by ity of tablet 00:00: mouth [place] 00 daily. Medical Start with Branch 1/2 tab daily for 1 week, then 1 tab daily for 1 week, then 2 tabs daily SERTraline 2020-06 Yes [id number] 50mg Take 1 [facility] 50 mg 0-19 tablet by ity of tablet 00:00: mouth [place] 00 daily. Medical Start with Branch 1/2 tab daily for 1 week, then 1 tab daily for 1 week, then 2 tabs daily SERTraline 2020-06 Yes [id number] 50mg Take 1 [facility] 50 mg 0-19 tablet by ity of tablet 00:00: mouth [place] 00 daily. Medical Start with Branch 1/2 tab daily for 1 week, then 1 tab daily for 1 week, then 2 tabs daily SERTraline 2020-06 Yes [id number] 50mg Take 1 [facility] 50 mg 0-19 tablet by ity of tablet 00:00: mouth [place] 00 daily. Medical Start with Branch 1/2 tab daily for 1 week, then 1 tab daily for 1 week, then 2 tabs daily SERTraline 2020-06 Yes [id number] 50mg Take 1 [facility] 50 mg 0-19 tablet by ity of tablet 00:00: mouth [place] 00 daily. Medical Start with Branch 1/2 tab daily for 1 week, then 1 tab daily for 1 week, then 2 tabs daily SERTraline 2020-06 Yes [id number] 50mg Take 1 [facility] 50 mg 0-19 tablet by ity of tablet 00:00: mouth [place] 00 daily. Medical Start with Branch 1/2 tab daily for 1 week, then 1 tab daily for 1 week, then 2 tabs daily SERTraline 2020-06 Yes [id number] 50mg Take 1 [facility] 50 mg 0-19 tablet by ity of tablet 00:00: mouth [place] 00 daily. Medical Start with Branch 1/2 tab daily for 1 week, then 1 tab daily for 1 week, then 2 tabs daily SERTraline 2020-06 Yes [id number] 50mg Take 1 [facility] 50 mg 0-19 tablet by ity of tablet 00:00: mouth [place] 00 daily. Medical Start with Branch 1/2 tab daily for 1 week, then 1 tab daily for 1 week, then 2 tabs daily SERTraline 2020-06 Yes [id number] 50mg Take 1 [facility] 50 mg 0-19 tablet by ity of tablet 00:00: mouth [place] 00 daily. Medical Start with Branch 1/2 tab daily for 1 week, then 1 tab daily for 1 week, then 2 tabs daily SERTraline 2020-06 Yes [id number] 50mg Take 1 [facility] 50 mg 0-19 tablet by ity of tablet 00:00: mouth [place] 00 daily. Medical Start with Branch 1/2 tab daily for 1 week, then 1 tab daily for 1 week, then 2 tabs daily SERTraline 2020-06 Yes [id number] 50mg Take 1 [facility] 50 mg 0-19 tablet by ity of tablet 00:00: mouth [place] 00 daily. Medical Start with Branch 1/2 tab daily for 1 week, then 1 tab daily for 1 week, then 2 tabs daily SERTraline 2020-06 Yes [id number] 50mg Take 1 [facility] 50 mg 0-19 tablet by ity of tablet 00:00: mouth [place] 00 daily. Medical Start with Branch 1/2 tab daily for 1 week, then 1 tab daily for 1 week, then 2 tabs daily SERTraline 2020-06 Yes [id number] 50mg Take 1 [facility] 50 mg 0-19 tablet by ity of tablet 00:00: mouth [place] 00 daily. Medical Start with Branch 1/2 tab daily for 1 week, then 1 tab daily for 1 week, then 2 tabs daily SERTraline 2020-06 Yes [id number] 50mg Take 1 [facility] 50 mg 0-19 tablet by ity of tablet 00:00: mouth [place] 00 daily. Medical Start with Branch 1/2 tab daily for 1 week, then 1 tab daily for 1 week, then 2 tabs daily SERTraline 2020-06 Yes [id number] 50mg Take 1 [facility] 50 mg 0-19 tablet by ity of tablet 00:00: mouth [place] 00 daily. Medical Start with Branch 1/2 tab daily for 1 week, then 1 tab daily for 1 week, then 2 tabs daily SERTraline 2020-06 Yes [id number] 50mg Take 1 [facility] 50 mg 0-19 tablet by ity of tablet 00:00: mouth [place] 00 daily. Medical Start with Branch 1/2 tab daily for 1 week, then 1 tab daily for 1 week, then 2 tabs daily SERTraline 2020-06 Yes [id number] 50mg Take 1 [facility] 50 mg 0-19 tablet by ity of tablet 00:00: mouth [place] 00 daily. Medical Start with Branch 1/2 tab daily for 1 week, then 1 tab daily for 1 week, then 2 tabs daily carvediloL 2021-0 Yes 25mg Take 25 mg U nivers 25 mg 7-22 by mouth 2 ity of tablet 00:00: (two) [place] 00 times Medical daily. Branch carvediloL 2021-0 Yes 25mg Take 25 mg U nivers 25 mg 7-22 by mouth 2 ity of tablet 00:00: (two) [place] 00 times Medical daily. Branch carvediloL 1-0 Yes 25mg Take 25 mg U nivers 25 mg 7-22 by mouth 2 ity of tablet 00:00: (two) [place] 00 times Medical daily. Branch carvediloL 1-0 Yes 25mg Take 25 mg U nivers 25 mg 7-22 by mouth 2 ity of tablet 00:00: (two) [place] 00 times Medical daily. Branch carvediloL 1-0 Yes 25mg Take 25 mg U nivers 25 mg 7-22 by mouth 2 ity of tablet 00:00: (two) [place] 00 times Medical daily. Branch carvediloL 1-0 Yes 25mg Take 25 mg U nivers 25 mg 7-22 by mouth 2 ity of tablet 00:00: (two) [place] 00 times Medical daily. Branch carvediloL 2021-0 Yes 25mg Take 25 mg U nivers 25 mg 7-22 by mouth 2 ity of tablet 00:00: (two) [place] 00 times Medical daily. Branch carvediloL 2021-0 Yes 25mg Take 25 mg U nivers 25 mg 7-22 by mouth 2 ity of tablet 00:00: (two) [place] 00 times Medical daily. Branch carvediloL 2021-0 Yes 25mg Take 25 mg U nivers 25 mg 7-22 by mouth 2 ity of tablet 00:00: (two) [place] 00 times Medical daily. Branch carvediloL 2021-0 Yes 25mg Take 25 mg U nivers 25 mg 7-22 by mouth 2 ity of tablet 00:00: (two) [place] 00 times Medical daily. Branch carvediloL 2020-0 3- No 25mg Take 25 mg [facility] 25 mg 7 03-03 by mouth 2 ity of tablet 00:00: 00:00 (two) [place] 00 :00 times Medical daily. Branch levothyroxi 2020-0 Yes 100ug Take 100 U nivers ne 100 mcg 4-22 mcg by ity of tablet 00:00: mouth [place] 00 every Medical morning. Branch levothyroxi 2020-0 Yes 100ug Take 100 U nivers ne 100 mcg 4-22 mcg by ity of tablet 00:00: mouth [place] 00 every Medical morning. Branch levothyroxi 2020-0 Yes 100ug Take 100 U nivers ne 100 mcg 4-22 mcg by ity of tablet 00:00: mouth [place] 00 every Medical morning. Branch levothyroxi 2020-0 Yes 100ug Take 100 U nivers ne 100 mcg 4-22 mcg by ity of tablet 00:00: mouth [place] 00 every Medical morning. Branch levothyroxi 2020-0 Yes 100ug Take 100 U nivers ne 100 mcg 4-22 mcg by ity of tablet 00:00: mouth [place] 00 every Medical morning. Branch levothyroxi 2020-0 Yes 100ug Take 100 U nivers ne 100 mcg 4-22 mcg by ity of tablet 00:00: mouth [place] 00 every Medical morning. Branch levothyroxi 2020-0 Yes 100ug Take 100 U nivers ne 100 mcg 4-22 mcg by ity of tablet 00:00: mouth [place] 00 every Medical morning. Branch levothyroxi 2020-0 Yes 100ug Take 100 U nivers ne 100 mcg 4-22 mcg by ity of tablet 00:00: mouth [place] 00 every Medical morning. Branch levothyroxi 2020-0 Yes 100ug Take 100 U nivers ne 100 mcg 4-22 mcg by ity of tablet 00:00: mouth [place] 00 every Medical morning. Branch levothyroxi 2020-0 Yes 100ug Take 100 U nivers ne 100 mcg 4-22 mcg by ity of tablet 00:00: mouth [place] 00 every Medical morning. Branch levothyroxi 2020-0 Yes 100ug Take 100 U nivers ne 100 mcg 4-22 mcg by ity of tablet 00:00: mouth [place] 00 every Medical morning. Branch levothyroxi 2020-0 Yes 100ug Take 100 U nivers ne 100 mcg 4-22 mcg by ity of tablet 00:00: mouth [place] 00 every Medical morning. Branch levothyroxi 1-0 Yes 100ug Take 100 U nivers ne 100 mcg 4-22 mcg by ity of tablet 00:00: mouth [place] 00 every Medical morning. Branch levothyroxi 1-0 Yes 100ug Take 100 U nivers ne 100 mcg 4-22 mcg by ity of tablet 00:00: mouth [place] 00 every Medical morning. Branch levothyroxi 1-0 Yes 100ug Take 100 U nivers ne 100 mcg 4-22 mcg by ity of tablet 00:00: mouth [place] 00 every Medical morning. Branch levothyroxi 1-0 Yes 100ug Take 100 U nivers ne 100 mcg 4-22 mcg by ity of tablet 00:00: mouth [place] 00 every Medical morning. Branch levothyroxi 1-0 Yes 100ug Take 100 U nivers ne 100 mcg 4-22 mcg by ity of tablet 00:00: mouth [place] 00 every Medical morning. Branch levothyroxi 1-0 Yes 100ug Take 100 U nivers ne 100 mcg 4-22 mcg by ity of tablet 00:00: mouth [place] 00 every Medical morning. Branch levothyroxi 1-0 Yes 100ug Take 100 U nivers ne 100 mcg 4-22 mcg by ity of tablet 00:00: mouth [place] 00 every Medical morning. Branch levothyroxi 1-0 Yes 100ug Take 100 U nivers ne 100 mcg 4-22 mcg by ity of tablet 00:00: mouth [place] 00 every Medical morning. Branch carvedilol carvedilol No carvedilol [facility] Euthyrox Euthyrox No 1 Q1D Euthyrox [facility] via 100 mcg 100 mcg 100 mcg Medica l tablet Take tablet Take tablet 1 tablet 1 tablet Take 1 every day every day tablet by oral by oral every day route. route. by oral route. carvedilol carvedilol No carvedilol [facility] Synthroid Synthroid No 1 Q1D Synthroid [facility] 100 mcg 100 mcg 100 mcg Medica l tablet Take tablet Take tablet 1 tablet 1 tablet Take 1 every day every day tablet by oral by oral every day route. route. by oral route. carvedilol carvedilol No carvedilol [facility] 3.125 mg 3.125 mg 3.125 mg Med ical tablet TAKE tablet TAKE tablet 1 TABLET BY 1 TABLET BY TAKE 1 MOUTH TWICE MOUTH TWICE TABLET BY DAILY DAILY MOUTH TWICE DAILY diclofenac diclofenac No diclofenac [facility] sodium 75 sodium 75 sodium 75 Medical mg mg mg tablet,param tablet,param tablet,del yed release yed release ayed TAKE 1 TAKE 1 release TABLET BY TABLET BY TAKE 1 MOUTH TWICE MOUTH TWICE TABLET BY DAILY DAILY MOUTH TWICE DAILY ferrous ferrous No ferrous [facility] sulfate 325 sulfate 325 sulfate Medical mg (65 mg mg (65 mg 325 mg (65 iron) iron) mg iron) tablet TAKE tablet TAKE tablet 1 TABLET BY 1 TABLET BY TAKE 1 MOUTH ONCE MOUTH ONCE TABLET BY DAILY DAILY MOUTH ONCE DAILY Synthroid Synthroid No 1 Q1D Synthroid [facility] 100 mcg 100 mcg 100 mcg Medica l tablet Take tablet Take tablet 1 tablet 1 tablet Take 1 every day every day tablet by oral by oral every day route. route. by oral route. amoxicillin amoxicillin No 1 Q12H [address] [facility] 500 500 n 500 Communi mg-potassiu mg-potassiu mg-potassi ty [facility] clavulanate clavulanate clavulanat l 125 mg 125 mg e 125 mg Clinics tablet Take tablet Take tablet 1 tablet 1 tablet Take 1 every 12 every 12 tablet hours by hours by every 12 oral route oral route hours by for 10 for 10 oral route days. days. for 10 days. carvedilol carvedilol No carvedilol [facility] 25 mg 25 mg 25 mg [facility]i tablet TAKE tablet TAKE tablet ty 1 TABLET BY 1 TABLET BY TAKE 1 Hospita MOUTH TWICE MOUTH TWICE TABLET BY l DAILY WITH DAILY WITH MOUTH Cl inics MEALS MEALS TWICE DAILY WITH MEALS carvedilol carvedilol No 1 BID carvedilol [facility] 3.125 mg 3.125 mg 3.125 mg Med ical tablet Take tablet Take tablet 1 tablet 1 tablet Take 1 twice a day twice a day tablet by oral by oral twice a route. route. day by oral route. carvedilol carvedilol No carvedilol [facility] 3.125 mg 3.125 mg 3.125 mg Com adrianna tablet TAKE tablet TAKE tablet ty 1 TABLET BY 1 TABLET BY TAKE 1 Hospita MOUTH TWICE MOUTH TWICE TABLET BY l DAILY DAILY MOUTH Clinics TWICE DAILY diclofenac diclofenac No 1 BID diclofenac [facility] sodium 75 sodium 75 sodium 75 Medical mg mg mg tablet,param tablet,param tablet,del yed release yed release ayed Take 1 Take 1 release tablet tablet Take 1 twice a day twice a day tablet by oral by oral twice a route. route. day by oral route. Euthyrox Euthyrox No Euthyrox [facility] 100 mcg 100 mcg 100 mcg Commun i tablet TAKE tablet TAKE tablet ty 1 TABLET BY 1 TABLET BY TAKE 1 Hospita MOUTH ONCE MOUTH ONCE TABLET BY l DAILY DAILY MOUTH ONCE Clinics DAILY Myrbetriq Myrbetriq No 1 Q1D Myrbetriq [facility] 25 mg 25 mg 25 mg Medical tablet,exte tablet,exte tablet,ext nded nded ended release release release Take 1 Take 1 Take 1 tablet tablet tablet every day every day every day by oral by oral by oral route. route. route. ferrous ferrous No ferrous [facility] sulfate 325 sulfate 325 sulfate [facility] mg (65 mg mg (65 mg 325 mg (65 ty iron) iron) mg iron) Hospita tablet TAKE tablet TAKE tablet l 1 TABLET BY 1 TABLET BY TAKE 1 Clinics MOUTH ONCE MOUTH ONCE TABLET BY DAILY DAILY MOUTH ONCE DAILY Myrbetriq Myrbetriq No 1 Q1D Myrbetriq [facility] 50 mg 50 mg 50 mg Medical tablet,exte tablet,exte tablet,ext nded nded ended release release release Take 1 Take 1 Take 1 tablet tablet tablet every day every day every day by oral by oral by oral route. route. route. Miralax 17 Miralax 17 No 17g Q1D Miralax 17 [facility] gram/dose gram/dose gram/dose [facility] oral powder oral powder oral t y Take 17 g Take 17 g powder [facility] every day every day Take 17 g l by oral by oral every day Clin ics route. route. by oral route. Synthroid Synthroid No 1 Q1D Synthroid [facility] 100 mcg 100 mcg 100 mcg Medica l tablet Take tablet Take tablet 1 tablet 1 tablet Take 1 every day every day tablet by oral by oral every day route in route in by oral the the route in morning. morning. the morning. amitriptyli amitriptyli No 1 Q1D amitriptyl [facility] ne 25 mg ne 25 mg ine 25 mg Me dical tablet Take tablet Take tablet 1 tablet 1 tablet Take 1 every day every day tablet by oral by oral every day route at route at by oral bedtime for bedtime for route at 30 days. 30 days. bedtime for 30 days. carvedilol carvedilol No 1 BID carvedilol [facility] 25 mg 25 mg 25 mg Medical tablet Take tablet Take tablet 1 tablet 1 tablet Take 1 twice a day twice a day tablet by oral by oral twice a route for route for day by 90 days. 90 days. oral route for 90 days. carvedilol carvedilol No 1 BID carvedilol [facility] 3.125 mg 3.125 mg 3.125 mg Med ical tablet Take tablet Take tablet 1 tablet 1 tablet Take 1 twice a day twice a day tablet by oral by oral twice a route. route. day by oral route. diclofenac diclofenac No 1 BID diclofenac [facility] sodium 75 sodium 75 sodium 75 Medical mg mg mg tablet,param tablet,param tablet,del yed release yed release ayed Take 1 Take 1 release tablet tablet Take 1 twice a day twice a day tablet by oral by oral twice a route. route. day by oral route. ferrous ferrous No 1 Q1D ferrous [facility] sulfate 325 sulfate 325 sulfate Medical mg (65 mg mg (65 mg 325 mg (65 iron) iron) mg iron) tablet Take tablet Take tablet 1 tablet 1 tablet Take 1 every day every day tablet by oral by oral every day route. route. by oral route. oxybutynin oxybutynin No 1 Q1D oxybutynin [facility] chloride ER chloride ER chloride Medical 5 mg 5 mg ER 5 mg tablet,exte tablet,exte tablet,ext nded nded ended release 24 release 24 release 24 hr Take 1 hr Take 1 hr Take 1 tablet tablet tablet every day every day every day by oral by oral by oral route. route. route. Synthroid Synthroid No 1 Q1D Synthroid [facility] 100 mcg 100 mcg 100 mcg Medica l tablet Take tablet Take tablet 1 tablet 1 tablet Take 1 every day every day tablet by oral by oral every day route in route in by oral the the route in morning. morning. the morning. Yelitza (28) Yelitza (28) No 1 Q1D Yelitza [facility] 3 mg-0.03 3 mg-0.03 (28) 3 Med ical mg tablet mg tablet mg-0.03 mg Take 1 Take 1 tablet tablet tablet Take 1 every day every day tablet by oral by oral every day route for route for by oral 28 days. 28 days. route for 28 days. Immunizations Ordered Filled Immunization Date Status Comments [facility] e Immunization Name Name SARS-COV-2 COVID-19 2021-06-13 Completed Unive rsity of [facility] VACCINE 00:00:00 [place] [facility] SARS-COV-2 COVID-19 2021-06-13 Completed Unive rsity of [facility] VACCINE 00:00:00 [place] [facility] SARS-COV-2 COVID-19 2021-06-13 Completed Unive rsity of MODERNA 12+ YRS 00:00:00 [place] [facility] ical VACCINE Branch SARS-COV-2 COVID-19 2021-06-13 Completed Unive rsity of MODERNA 12+ YRS 00:00:00 [place] [facility] ical VACCINE Branch SARS-COV-2 COVID-19 2021-06-13 Completed Unive rsity of MODERNA 12+ YRS 00:00:00 [place] [facility] ical VACCINE Branch SARS-COV-2 COVID-19 2021-06-13 Completed Unive rsity of MODERNA 12+ YRS 00:00:00 [place] [facility] ical VACCINE Branch SARS-COV-2 COVID-19 2021-06-13 Completed Unive rsity of MODERNA 12+ YRS 00:00:00 [place] [facility] ical VACCINE Branch SARS-COV-2 COVID-19 2021-06-13 Completed Unive rsity of MODERNA 12+ YRS 00:00:00 [place] [facility] ical VACCINE Branch SARS-COV-2 COVID-19 2021-06-13 Completed Unive rsity of MODERNA 12+ YRS 00:00:00 [place] [facility] ical VACCINE Branch SARS-COV-2 COVID-19 2021-06-13 Completed Unive rsity of MODERNA 12+ YRS 00:00:00 [place] [facility] ical VACCINE Branch SARS-COV-2 COVID-19 2021-06-13 Completed Unive rsity of MODERNA 12+ YRS 00:00:00 [place] [facility] ical VACCINE Branch SARS-COV-2 COVID-19 2021-06-13 Completed Unive rsity of MODERNA 12+ YRS 00:00:00 [place] [facility] ical VACCINE Branch SARS-COV-2 COVID-19 2021-06-13 Completed Unive rsity of MODERNA 12+ YRS 00:00:00 [place] [facility] ical VACCINE Branch SARS-COV-2 COVID-19 2021-06-13 Completed Unive rsity of MODERNA 12+ YRS 00:00:00 [place] [facility] ical VACCINE Branch SARS-COV-2 COVID-19 2021-06-13 Completed Unive rsity of MODERNA 12+ YRS 00:00:00 [place] [facility] ical VACCINE Branch SARS-COV-2 COVID-19 2021-06-13 Completed Unive rsity of MODERNA 12+ YRS 00:00:00 [facility] ical VACCINE Branch COVID-19, mRNA, COVID-19, mRNA, 2020-09-13 Completed [facility] LNP-S, PF, 100 LNP-S, PF, 100 00:00:00 [facility] mcg/0.5 mL dose mcg/0.5 mL dose SARS-COV-2 COVID-19 2020-08-24 Completed Unive rsity of MODERNA VACCINE 00:00:00 [place] [facility] ical Branch SARS-COV-2 COVID-19 2020-08-24 Completed Unive rsity of MODERNA VACCINE 00:00:00 [place] [facility] ical Branch SARS-COV-2 COVID-19 2020-08-24 Completed Unive rsity of MODERNA 12+ YRS 00:00:00 [place] [facility] ical VACCINE Branch SARS-COV-2 COVID-19 2020-08-24 Completed Unive rsity of MODERNA 12+ YRS 00:00:00 [place] [facility] ical VACCINE Branch SARS-COV-2 COVID-19 2020-08-24 Completed Unive rsity of MODERNA 12+ YRS 00:00:00 [place] [facility] ical VACCINE Branch SARS-COV-2 COVID-19 2020-08-24 Completed Unive rsity of MODERNA 12+ YRS 00:00:00 [place] [facility] ical VACCINE Branch SARS-COV-2 COVID-19 2020-08-24 Completed Unive rsity of MODERNA 12+ YRS 00:00:00 [place] [facility] ical VACCINE Branch SARS-COV-2 COVID-19 2020-08-24 Completed Unive rsity of MODERNA 12+ YRS 00:00:00 [place] [facility] ical VACCINE Branch SARS-COV-2 COVID-19 2020-08-24 Completed Unive rsity of MODERNA 12+ YRS 00:00:00 [place] [facility] ical VACCINE Branch SARS-COV-2 COVID-19 2020-08-24 Completed Unive rsity of MODERNA 12+ YRS 00:00:00 [place] [facility] ical VACCINE Branch SARS-COV-2 COVID-19 2020-08-24 Completed Unive rsity of MODERNA 12+ YRS 00:00:00 [place] [facility] ical VACCINE Branch SARS-COV-2 COVID-19 2020-08-24 Completed Unive rsity of MODERNA 12+ YRS 00:00:00 [place] [facility] ical VACCINE Branch SARS-COV-2 COVID-19 2020-08-24 Completed Unive rsity of MODERNA 12+ YRS 00:00:00 [place] [facility] ical VACCINE Branch SARS-COV-2 COVID-19 2020-08-24 Completed Unive rsity of MODERNA 12+ YRS 00:00:00 [place] [facility] ical VACCINE Branch SARS-COV-2 COVID-19 2020-08-24 Completed Unive rsity of MODERNA 12+ YRS 00:00:00 [place] [facility] ical VACCINE Branch SARS-COV-2 COVID-19 2020-08-24 Completed Unive rsity of MODERNA 12+ YRS 00:00:00 [facility] ical VACCINE Branch COVID-19, mRNA, COVID-19, mRNA, 2020-08-20 Completed [facility] LNP-S, PF, 100 LNP-S, PF, 100 00:00:00 Hospit [facility] Clinics mcg/0.5 mL dose mcg/0.5 mL dose SARS-COV-2 COVID-19 2020-07-27 Completed Unive rsity of MODERNA VACCINE 00:00:00 [place] [facility] ical Branch SARS-COV-2 COVID-19 2020-07-27 Completed Unive rsity of MODERNA VACCINE 00:00:00 [facility] ical Branch SARS-COV-2 COVID-19 2020-07-27 Completed Unive rsity of MODERNA 12+ YRS 00:00:00 [place] [facility] ical VACCINE Branch SARS-COV-2 COVID-19 2020-07-27 Completed Unive rsity of MODERNA 12+ YRS 00:00:00 [place] [facility] ical VACCINE Branch SARS-COV-2 COVID-19 2020-07-27 Completed Unive rsity of MODERNA 12+ YRS 00:00:00 [place] [facility] ical VACCINE Branch SARS-COV-2 COVID-19 2020-07-27 Completed Unive rsity of MODERNA 12+ YRS 00:00:00 [place] [facility] ical VACCINE Branch SARS-COV-2 COVID-19 2020-07-27 Completed Unive rsity of MODERNA 12+ YRS 00:00:00 [place] [facility] ical VACCINE Branch SARS-COV-2 COVID-19 2020-07-27 Completed Unive rsity of MODERNA 12+ YRS 00:00:00 [place] [facility] ical VACCINE Branch SARS-COV-2 COVID-19 2020-07-27 Completed Unive rsity of MODERNA 12+ YRS 00:00:00 [place] [facility] ical VACCINE Branch SARS-COV-2 COVID-19 2020-07-27 Completed Unive rsity of MODERNA 12+ YRS 00:00:00 [place] [facility] ical VACCINE Branch SARS-COV-2 COVID-19 2020-07-27 Completed Unive rsity of MODERNA 12+ YRS 00:00:00 [place] [facility] ical VACCINE Branch SARS-COV-2 COVID-19 2020-07-27 Completed Unive rsity of MODERNA 12+ YRS 00:00:00 [place] [facility] ical VACCINE Branch SARS-COV-2 COVID-19 2020-07-27 Completed Unive rsity of MODERNA 12+ YRS 00:00:00 [place] [facility] ical VACCINE Branch SARS-COV-2 COVID-19 2020-07-27 Completed Unive rsity of MODERNA 12+ YRS 00:00:00 [place] [facility] ical VACCINE Branch SARS-COV-2 COVID-19 2020-07-27 Completed Unive rsity of MODERNA 12+ YRS 00:00:00 [place] [facility] ical VACCINE Branch SARS-COV-2 COVID-19 2020-07-27 Completed Unive rsity of MODERNA 12+ YRS 00:00:00 [place] [facility] ical VACCINE Branch Vital Signs Vital Name Observation Time Observation Value Comments Source Systolic blood 2022-11-13 16:37:00 113 mm[Hg] Univer sity of pressure [facility] Branch Diastolic blood 2022-11-13 16:37:00 72 mm[Hg] Unive rsity of pressure [place] [facility] Heart rate 2022-11-13 16:37:00 79 /min [facility] [place] [facility] Body temperature 2022-11-13 16:37:00 36.61 Brenda [facility] [place] [facility] Respiratory rate 2022-11-13 16:37:00 17 /min [facility] [place] [facility] Body height 2022-11-13 16:37:00 157.5 cm [facility] [place] [facility] Body weight 2022-11-13 16:37:00 105.915 kg [facility] [place] [facility] BMI 2022-11-13 16:37:00 42.71 kg/m2 [facility] [place] [facility] Oxygen saturation in 2022-11-13 16:37:00 100 /min [facility] of Arterial blood by [facility] Pulse oximetry Branch Systolic blood 2022-08-22 16:55:00 112 mm[Hg] Univer sity of pressure [place] [facility] Diastolic blood 2022-08-22 16:55:00 79 mm[Hg] Unive rsity of pressure [place] [facility] Heart rate 2022-08-22 16:55:00 77 /min [facility] [place] [facility] Respiratory rate 2022-08-22 16:55:00 16 /min [facility] [place] [facility] Oxygen saturation in 2022-08-22 16:55:00 99 /min [facility] of Arterial blood by [facility] Pulse oximetry Branch Body temperature 2022-08-22 15:19:00 36.61 Brenda [facility] [place] [facility] Body height 2022-08-22 15:19:00 157.5 cm [facility] [place] [facility] Body weight 2022-08-22 15:19:00 106.142 kg [facility] [place] [facility] BMI 2022-08-22 15:19:00 42.80 kg/m2 [facility] [place] [facility] Systolic blood 2022-08-04 16:58:00 117 mm[Hg] Univer sity of pressure [place] [facility] Diastolic blood 2022-08-04 16:58:00 70 mm[Hg] Unive rsity of pressure [place] [facility] Heart rate 2022-08-04 16:58:00 61 /min [facility] [place] [facility] Body temperature 2022-08-04 16:58:00 36.72 Brenda [facility] [place] [facility] Body height 2022-08-04 16:58:00 157.5 cm [facility] [place] [facility] Body weight 2022-08-04 16:58:00 106.187 kg [facility] [place] [facility] BMI 2022-08-04 16:58:00 42.82 kg/m2 [facility] [place] [facility] Oxygen saturation in 2022-08-04 16:58:00 99 /min [facility] of Arterial blood by [facility] Pulse oximetry Branch Systolic blood 2022-01-29 17:00:00 112 mm[Hg] Univer sity of pressure [place] [facility] Diastolic blood 2022-01-29 17:00:00 80 mm[Hg] Unive rsity of pressure [place] [facility] Heart rate 2022-01-29 17:00:00 78 /min [facility] [place] [facility] Respiratory rate 2022-01-29 17:00:00 17 /min [facility] [place] [facility] Oxygen saturation in 2022-01-29 17:00:00 98 /min [facility] Arterial blood by [facility] Pulse oximetry Branch Body weight 2022-01-29 15:36:00 111.131 kg [facility] [place] [facility] BMI 2022-01-29 15:36:00 44.81 kg/m2 [facility] [place] [facility] Systolic blood 2021-11-26 16:30:00 111 mm[Hg] Univer sity of pressure [place] [facility] Diastolic blood 2021-11-26 16:30:00 68 mm[Hg] Unive rsity of pressure [place] [facility] Heart rate 2021-11-26 16:30:00 83 /min [facility] [place] [facility] Respiratory rate 2021-11-26 16:30:00 22 /min [facility] [place] [facility] Oxygen saturation in 2021-11-26 16:30:00 97 /min [facility] Arterial blood by [facility] Pulse oximetry Branch Body temperature 2021-11-26 15:39:57 35.72 Brenda [facility] [place] [facility] BMI (Body Mass 2021-10-23 00:00:00 43.6 kg/m2 [facility] Index) BP Systolic 2021-10-23 00:00:00 118 mm[Hg] [facility] Body Weight 2021-10-23 00:00:00 3816 [oz_av] [facility] BP Diastolic 2021-10-23 00:00:00 85 mm[Hg] [facility] Height 2021-10-23 00:00:00 62 [in_i] [facility] Systolic blood 2021-08-30 14:49:00 117 mm[Hg] Univer sity of pressure [facility] Diastolic blood 2021-08-30 14:49:00 83 mm[Hg] Unive rsity of pressure [facility] Heart rate 2021-08-30 14:49:00 62 /min Universi ty [facility] [place] Respiratory rate 2021-08-30 14:49:00 18 /min Univ ersity [facility] [place] Body height 2021-08-30 14:49:00 157[facility]5 [facility] 2021-08-30 14:49:00 111.63 [facility] BMI 2021-08-30 14:49:00 45.01 kg/m2 [facility] Oxygen saturation in 2021-08-30 14:49:00 99 /min [facility] Arterial blood by [facility] Pulse oximetry Branch BP Diastolic 2021-08-26 00:00:00 78 mm[Hg] [facility] Height 2021-08-26 00:00:00 62 [in_i] [facility] BMI (Body Mass 2021-08-26 00:00:00 44.6 kg/m2 [facility]) BP Systolic 2021-08-26 00:00:00 130 mm[Hg] [facility] Body Weight 2021-08-26 00:00:00 244 [lb_av] [facility] BP Diastolic 2021-08-21 00:00:00 85 mm[Hg] [facility] Height 2021-08-21 00:00:00 62 [in_i] [facility] BMI (Body Mass 2021-08-21 00:00:00 44.3 kg/m2 [facility]) BP Systolic 2021-08-21 00:00:00 121 mm[Hg] [facility] Body Weight 2021-08-21 00:00:00 3872 [oz_av] [facility] BP Diastolic 2021-08-07 00:00:00 74 mm[Hg] [facility] Height 2021-08-07 00:00:00 62 [in_i] [facility] BMI (Body Mass 2021-08-07 00:00:00 44.6 kg/m2 [facility]) BP Systolic 2021-08-07 00:00:00 120 mm[Hg] [facility] Body Weight 2021-08-07 00:00:00 244 [lb_av] [facility] BP Diastolic 2021-07-10 00:00:00 72 mm[Hg] [facility] Height 2021-07-10 00:00:00 62 [in_i] [facility] BMI (Body Mass 2021-07-10 00:00:00 44.3 kg/m2 [facility]) BP Systolic 2021-07-10 00:00:00 117 mm[Hg] [facility] Body Weight 2021-07-10 00:00:00 242 [lb_av] [facility] BP Diastolic 2021-03-18 00:00:00 68 mm[Hg] [facility] Height 2021-03-18 00:00:00 62 [in_i] [facility] BMI (Body Mass 2021-03-18 00:00:00 43.5 kg/m2 [facility] BP Systolic 2021-03-18 00:00:00 121 mm[Hg] [facility] Body Weight 2021-03-18 00:00:00 3808 [oz_av] [facility] BP Systolic 2022-04-22 09:20:00 121 mm[Hg] BP Diastolic 2022-04-22 09:20:00 84 mm[Hg] Weight Measured 2022-04-22 09:20:00 237.40 pounds Height Measured 2022-04-22 09:20:00 62.40 inches Body Temperature 2022-04-22 09:20:00 98.30 degrees Heart Rate 2022-04-22 09:20:00 89.00 /min Respiratory Rate 2022-04-22 09:20:00 Heart Rate 2022-03-21 10:11:00 67.00 /min Respiratory Rate 2022-03-21 10:11:00 BP Systolic 2022-03-21 10:11:00 111 mm[Hg] BP Diastolic 2022-03-21 10:11:00 73 mm[Hg] Weight Measured 2022-03-21 10:11:00 237.80 pounds Height Measured 2022-03-21 10:11:00 62.40 inches Body Temperature 2022-03-21 10:11:00 98.10 degrees BP Systolic 2022-03-18 10:29:00 133 mm[Hg] BP Diastolic 2022-03-18 10:29:00 79 mm[Hg] Weight Measured 2022-03-18 10:29:00 238.20 pounds Height Measured 2022-03-18 10:29:00 62.40 inches Body Temperature 2022-03-18 10:29:00 97.80 degrees Heart Rate 2022-03-18 10:29:00 73.00 /min Respiratory Rate 2022-03-18 10:29:00 16.00 /min BP Systolic 2022-03-18 09:41:00 133 mm[Hg] BP Diastolic 2022-03-18 09:41:00 79 mm[Hg] Weight Measured 2022-03-18 09:41:00 238.20 pounds Height Measured 2022-03-18 09:41:00 62.40 inches Body Temperature 2022-03-18 09:41:00 97.80 degrees Heart Rate 2022-03-18 09:41:00 73.00 /min Respiratory Rate 2022-03-18 09:41:00 16.00 /min BP Systolic 2021-09-25 15:46:00 146 mm[Hg] BP Diastolic 2021-09-25 15:46:00 86 mm[Hg] Weight Measured 2021-09-25 15:46:00 242.80 pounds Height Measured 2021-09-25 15:46:00 62.40 inches Body Temperature 2021-09-25 15:46:00 Heart Rate 2021-09-25 15:46:00 77.00 /min Respiratory Rate 2021-09-25 15:46:00 BP Systolic 2019-05-05 11:08:00 89 mm[Hg] BP Diastolic 2019-05-05 11:08:00 66 mm[Hg] Weight Measured 2019-05-05 11:08:00 217.00 pounds Height Measured 2019-05-05 11:08:00 62.40 inches Body Temperature 2019-05-05 11:08:00 99.00 degrees Heart Rate 2019-05-05 11:08:00 197.00 /min Respiratory Rate 2019-05-05 11:08:00 Procedures Procedure Date / Time Performing Clinician Source Performed [facility] PATIENT FINANCIAL 2022-11-13 16:29:49 Doctor Unassigned, No [facility] POLICY Name [facility] XR CHEST 1 VW 2022-08-22 15:52:31 Debra Clay [facility] MAGNESIUM 2022-08-22 15:42:00 Debra Clay [facility] TROPONIN I 2022-08-22 15:42:00 Debra Clay [facility] COMP. METABOLIC PANEL 2022-08-22 15:42:00 Debra Clay Deonna [facility] ([id number]) [facility] CBC WITH DIFF 2022-08-22 15:42:00 Debra Clay [facility] CONSENT/REFUSAL FOR 2022-08-22 15:11:22 Doctor Unassigned, [facility] EKG (SCANNED DOCUMENTS) 2022-08-12 06:01:00 Doctor Unassigned, N o [facility] ASSIGNMENT OF BENEFITS 2022-08-04 16:44:33 Doctor Unassigned, No [facility] TROPONIN I 2022-01-29 16:16:00 Giordano [facility] COMP. METABOLIC PANEL 2022-01-29 16:16:00 Edgar Giordano [facility] ([id number]) [facility] CBC WITH DIFF 2022-01-29 16:16:00 [facility] CONSENT/REFUSAL FOR 2022-01-29 15:27:29 Doctor Unassigned, No [facility] XR CHEST 1 VW 2021-11-26 15:27:57 Edgar Giordano [facility] HB ECG ROUTINE & RHYTHM 2021-11-26 15:12:13 Edgar Giordano [facility]IP [facility] LIPASE 2021-11-26 15:08:00 Singer [facility] MAGNESIUM 2021-11-26 15:08:00 Singer [facility] TROPONIN I 2021-11-26 15:08:00 Singer [facility] COMP. METABOLIC PANEL 2021-11-26 15:08:00 Edgar Giordano [facility] ([id number]) [facility] CBC WITH DIFF 2021-11-26 15:08:00 Singer [facility] PROTHROMBIN TIME / INR 2021-11-26 15:08:00 Singer Edgar [facility] ACTIVATED PARTIAL 2021-11-26 15:08:00 Singer [facility] THRMPLAS [facility] N-TERMINAL PRO-BNP 2021-11-26 15:08:00 Edgar Giordano [facility] CONSENT/REFUSAL FOR 2021-11-26 15:01:19 Doctor Unassigned, No [facility] DIAGNOSIS AND TREATMENT Name Medical Branch REFERRAL- 2021-09-27 05:01:00 Doctor Unassigned, No [facility] REQUEST/RESPONSE Name [facility] MAMMO, screening, 2021-08-21 00:00:00 [facility] digital, bilateral MAMMO, screening, 2021-08-07 00:00:00 [facility], bilateral Appendectomy [facility] Plan of Care Planned Activity Planned Date Details Comments Source Diagnostic Test 2021-10-23 lh + FSH, serum [facility] Pending 00:00:00 [code = lh + FSH, serum] Diagnostic Test 2021-10-23 prolactin, serum [facility] Pending 00:00:00 [code = prolactin, serum] Diagnostic Test 2021-10-23 dhea-sulfate, serum [facility] Pending 00:00:00 [code = dhea-sulfate, serum] Diagnostic Test 2021-10-23 testosterone, [facility] Pending 00:00:00 total, serum [code = testosterone, total, serum] Diagnostic Test 2021-10-23 CBC w/ auto diff [facility] Pending 00:00:00 [code = CBC w/ auto diff] Diagnostic Test 2021-10-23 iron + TIBC + [facility] Pending 00:00:00 ferritin, serum [code = iron + TIBC + ferritin, serum] Diagnostic Test 2021-08-07 test, [facility] Pending 00:00:00 urine [code = test, urine] Diagnostic Test 2021-08-07 pap, LB + HPV [code [facility] Pending 00:00:00 = pap, LB + HPV] Diagnostic Test 2021-03-18 urinalysis, [facility] Pending 00:00:00 dipstick [code = [facility] urinal[facility], dipstick] Diagnostic Test 2021-03-18 iron + TIBC + [facility] Pending 00:00:00 ferritin, serum [facility] Cli nics [code = iron + TIBC + ferritin, serum] Diagnostic Test 2021-03-18 TSH, serum, reflex [facility] Pending 00:00:00 free T4 [code = [facility] Cli nics TSH, serum, reflex free T4] Diagnostic Test 2021-03-18 CBC w/ auto diff [facility] Pending 00:00:00 [code = CBC w/ auto Hospital Clinics diff] Diagnostic Test 2021-03-18 CMP, serum or [facility] Pending 00:00:00 plasma [code = CMP, Hospital Clinics serum or plasma] Goal Plan of Care Note [code = 81213-6] Goal Plan of Care Note [code = 16296-9] Goal Plan of Care Note [code = 32360-0] Goal Plan of Care Note [code = 42135-2] Goal Plan of Care Note [code = 08606-4] Goal Plan of Care Note [code = 20008-1] Goal Plan of Care Note [code = 26685-7] Goal Plan of Care Note [code = 78902-8] Goal Plan of Care Note [code = 55274-3] Goal Plan of Care Note [code = 39518-3] Goal Plan of Care Note [code = 79332-5] Goal Plan of Care Note [code = 20789-6] Goal Plan of Care Note [code = 17197-1] Goal Plan of Care Note [code = 33482-7] Goal Plan of Care Note [code = 72703-0] Goal Plan of Care Note [code = 50511-3] Goal Plan of Care Note [code = 92446-4] Goal Plan of Care Note [code = 64732-1] Goal Plan of Care Note [code = 29556-6] Goal Plan of Care Note [code = 21545-1] Goal Plan of Care Note [code = 07067-1] Goal Plan of Care Note [code = 36651-5] Goal Plan of Care Note [code = 14306-9] Goal Plan of Care Note [code = 34322-6] Goal Plan of Care Note [code = 77490-9] Goal Plan of Care Note [code = 94896-9] Goal Plan of Care Note [code = 46675-3] Goal Plan of Care Note [code = 00706-1] Goal Plan of Care Note [code = 22407-0] Goal Plan of Care Note [code = 56888-2] Goal Plan of Care Note [code = 11622-6] Goal Plan of Care Note [code = 19433-9] Goal Plan of Care Note [code = 07431-1] Goal Plan of Care Note [code = 53910-5] Goal Plan of Care Note [code = 79120-8] Goal Plan of Care Note [code = 67953-7] Goal Plan of Care Note [code = 40190-7] Goal Plan of Care Note [code = 76384-1] Goal Plan of Care Note [code = 84920-3] Goal Plan of Care Note [code = 04781-1] Goal Plan of Care Note [code = 00527-2] Goal Plan of Care Note [code = 48695-4] Instructions [facility] Instructions [facility] Encounters Start End Encounter Admission Attending Care Care Encounter Source Date/Time Date/Time Type Type Clinicians Facility Department ID 2022-11-19 Inpatient R EVELYNE [facility] CCA [id number] Univers 16:02:25 HOWIE ity of [facility] 2004-10-03 Inpatient P DOCTOR [facility] YADIRA [id number] Univers 00:00:00 UNASSIGNED, 2 ity of NO [facility] 2023-08-04 2023-08-04 Outpatient R GALINDO [facility] [id number] Univers 09:20:00 09:20:00 KHUSHBU zarco o donavon [facility] 2022-12-12 2022-12-12 Permit Review Assistant 2, Adc Lab [facility] 1.2.840.114 [id number] Univers 09:30:00 09:45:00 Visit Galindo Khushbu BAILEY 350.1.13.10 [place] [id number] Pr dical NAL 353 [facility] 2022-12-12 2022-12-12 Outpatient R GALINDO [facility] [id number] [facility] 09:30:00 09:30:00 KHUSHBU zarco o donavon [facility] 2022-12-01 2022-12-01 [facility]phone [facility] [id number] [facility] 00:00:00 00:00:00 Khushbu BAILEY 350.1.13.10 [place] [id number] Pr dical NAL 059 [facility] 2022-11-19 2022-11-19 Telephone JC Stubbs [id number] [id number] [facility] 00:00:00 00:00:00 Howie MOI 350.1.13.10 it y of [facility] 4.2.7.2.686 [place] [id number] [facility] 840 [place] 2022-11-14 2022-11-14 Outpatient [facility] [id number] [place] 08:14:31 08:14:31 0526 [place] 2022-11-13 2022-11-13 Office [facility] 1.2.840.114 [id number] Univers 14:40:00 14:40:00 Visit Howie BAILEY 350.1.13.10 i [place] [id number] Pr dical NAL 059 [facility] 2022-11-13 2022-11-13 [facility] [id number] Univers 14:40:00 11:50:25 HOWIE ity of [facility] 2022-11-13 2022-11-13 Orders Doctor ALBRIGHT 1.2.840.114 [id number] Univers 00:00:00 00:00:00 Only Unassigned, MOI 350.1.13.10 ity of [place] [facility] 4.2.7.2.686 [place] [id number] [facility] 009 Re[place] 2022-11-13 2022-11-13 Rehan Stubbs [facility] 1.2.254.617 [id number] Univers 00:00:00 00:00:00 Howie LEO 350.1.13.10 i [place] [facility] [id number] Pr dic[address] 2022-10-09 2022-10-09 Outpatient [facility] [id number] Univers 09:40:00 09:40:00 HOWIE ity of [facility] 2022-09-25 2022-09-25 Outpatient SFA SFA [id number] [place] 08:28:27 08:28:27 0406 [facility] 2022-09-19 2022-09-19 Outpatient SFA SFA [id number] [place] 15:23:51 15:23:51 0331 [facility] 2022-08-22 2022-08-22 Emergency X Debra CLAY [facility] ERT [id number] Univers 09:22:00 11:15:00 ity of [facility] 2022-08-22 2022-08-22 Emergency Debra Clay [facility] 1.2.840.114 [id number] Univers 09:22:00 11:15:00 Deonnasherry BAILEY 350.1.13.10 i ty of [facility] 4.2.7.2.[place] [id number] [facility] 084 Rea 2022-08-21 2022-08-21 Outpatient SFA SFA [id number] 023 [place] 08:30:12 08:30:12 0302 [facility] 2022-08-12 2022-08-12 Orders Doctor ALBRIGHT 1.2.840.114 [id number] Univers 00:00:00 00:00:00 Only Unassigned, MOI 350.1.13.10 ity of [place] [facility] 4.2.7.2.686 [place] [id number] [address] 2022-08-05 2022-08-05 Telephone [facility] 1.2.010.283 [id number] Univers 00:00:00 00:00:00 Khushbu BAILEY 350.1.13.10 [place] [id number] Pr dic[address] 2022-08-04 2022-08-04 Office [facility] 1.2.840.114 [id number] Univers 11:20:00 11:20:00 Visit Khushbu BAILEY 350.1.13.10 [place] [id number] Pr dic[address] 2022-08-04 2022-08-04 Outpatient R [facility] [id number] Univers 11:20:00 11:14:11 ABRAZO [facility] haroldo o [facility] 2022-08-04 2022-08-04 Orders Doctor ALBRIGHT 1.2.840.114 [id number] Univers 00:00:00 00:00:00 Only Unassigned, MOI 350.1.13.10 ity of [place] [facility] 4.2.7.2.686 [place] [id number] [address] 2022-07-15 2022-07-15 Outpatient R [facility], [facility] [id number] Univers 15:00:00 15:00:00 KHUSHBU conrady o [facility] 2022-07-15 2022-07-15 Outpatient R [facility], [facility] [id number] Univers 15:00:00 15:00:00 KHUSHBU conrady o [facility] 2022-07-15 2022-07-15 Outpatient R [facility], [facility] [id number] Univers 15:00:00 15:00:00 [facility] 2022-05-23 2022-05-23 Outpatient [facility] [id number] [place] 08:58:40 08:58:40 1202 F [place] 2022-05-22 2022-05-22 Outpatient SFA SFA [id number] [place] 09:08:38 09:08:38 1201 F [place] 2022-04-22 2022-04-22 Outpatient SFA SFA [id number] [place] 09:17:45 09:17:45 1101 F [place] 2022-04-22 2022-04-22 Outpatient [id number] 00:00:00 00:00:00 Visit [id number] -[id number] [id number] 2022-03-21 2022-03-21 Outpatient [facility] [id number] [place] 10:10:31 10:10:31 0930 [place] 2022-03-21 2022-03-21 Outpatient [id number] 00:00:00 00:00:00 Visit [id number] w28-7033-[id number] -x0y0-57i [id number] 2bddd8 2022-03-18 2022-03-18 Outpatient [id number] 00:00:00 00:00:00 Visit 55m4-2hi5 2y3-6bw0-t -qs5z-458 [id number] 7beacb 2022-01-29 2022-01-29 Emergency X SINGER [facility] ERT [id number] Univers 10:35:00 12:13:00 EDGAR zarco [facility] 2022-01-29 2022-01-29 Emergency TASIA Giordano 1.2.480.991 [id number] Univers 10:35:00 12:13:00 Edgar BAILEY 350..13.10 geeta brito [facility] 4.2.7.2.686 [facility] [id number] [address] 2022-01-17 2022-01-17 Case JENNIFER Hoskins 1.2.840.114 [id number] Univers 00:00:00 00:00:00 Management Yvonne JAMESY 350.1.13.10 [id number] [place] [address] Branch 2021-11-26 2021-11-26 Emergency X [facility] ERT [id number] Univers 10:06:00 12:24:00 EDGAR anamariaana of [facility] 2021-11-26 2021-11-26 Emergency [facility] 1.2.988.143 [id number] Univers 10:06:00 12:24:00 Edgar BAILEY 350.1.13.10 i ty of [place] 4.2.7.2.686 [facility] [id number] [place] [address] Branch 2021-10-23 2021-10-23 Outpatient GC[facility] PRIV PRIV [id number] [facility] 05:19:00 05:19:00 k-In [id number] Medica l 2021-10-23 2021-10-23 Outpatient Person, [facility] [id number]-c 00:00:00 00:00:00 Bittinger [id number] [id number] [id number] 2021-10-23 2021-10-23 [facility] [id number] [facility] 00:00:00 00:00:00 [facility] PA-C: GC_CPCN_Nee 750[address] [facility] Office* [address], [place] [address] , Ph. 2021-10-07 2021-10-07 Outpatient C [facility] 674 [id number] [place] 13:26:00 23:59:00 Medica l [place] 2021-09-27 2021-09-27 Orders Doctor NATALEE 1.2.840.114 [id number] Univers 00:00:00 00:00:00 Only Unassigned, MOI 350.1.13.10 ity of [place] [facility] 4.2.7.2.686 [place] [id number] [facility] 009 Branch 2021-09-25 2021-09-25 Outpatient R GALINDO, [facility] [id number] Univers 11:20:00 11:20:00 KHUSHBU zarco o f [facility] 2021-08-30 2021-08-30 Outpatient Erik STUBBS [facility] [id number] Univers 08:20:00 09:15:50 HOWIE ity [facility] 2021-08-30 2021-08-30 Office [facility] 1.2.840.114 [id number] Univers 08:20:00 09:15:50 [facility] 350.1.13.10 i ty [place] [id number] Me dical NAL 9 [facility] 2021-08-30 2021-08-30 Outpatient [facility] [id number] Univers 08:20:00 08:20:00 [facility] 2021-08-26 2021-08-26 Outpatient GC_EBMD_Bai PRIV PRIV [id number] [facility] 09:49:00 09:49:00 maribeth_Kadeem [id number] Medica l 2021-08-26 2021-08-26 Outpatient LISA Gomez PRIV [id number] 00:00:00 00:00:00 Otilia [id number]-[id number] [facility]-bbcc1b 01ef29 2021-08-26 2021-08-26 Otilia GONZALEZ NE - [facility] 2 [id number] [facility] 00:00:00 00:00:00 [facility] Medic oh JOSH Gomez_EBMD_[facility] MD: [address] [facility] [address], [place] [address] , Ph. 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 2021-08-21 2021-08-21 Outpatient Yuliet [facility] PRIV [id number] 00:00:00 00:00:00 Tavares [id number] 2021-08-16 2021-08-19 Outpatient [facility] [id number] Univers 15:30:00 07:50:37 [facility] 2021-08-16 2021-08-16 Outpatient Erik [facility] [id number] Univers 15:30:00 15:30:00 [facility] 2021-08-07 2021-08-07 Outpatient GC_EBMD_Bai [facility] PRIV [id number] [facility] 01:13:00 01:13:00 ley_E [id number] Medica l 2021-08-07 2021-08-07 Outpatient Patricia [facility] [id number] 00:00:00 00:00:00 Otilia [id number]-48wm-[id number] [facility] [id number] 2021-08-07 2021-08-[address] [facility] 2021 [id number] [facility] 00:00:00 00:00:00 [facility] - Medic oh Patricia GC_EBMD_[place] MD: [address] [facility] [address], [place] [address] , Ph. 2021-08-02 2021-08-02 Outpatient GC_EBMD_Bai PRIV PRIV [id number] [facility] 05:02:00 05:02:00 ley_E [id number] Medica l 2021-07-25 2021-07-25 Outpatient WATERS_S [facility] [id number] 08:07:00 08:07:00 203 [facility] 2021-07-19 2021-07-19 Outpatient R VALENTÍN [facility] [id number] Univers 15:30:00 16:22:52 ANGELLA itana [facility] 2021-07-19 2021-07-19 Office [facility] 1.2.840.114 [id number] Univers 15:30:00 16:22:52 Visit Angella LEO 350.1.13.10 i ty [facility] [place] [id number] Pr dical NAL 098 [facility] 2021-07-17 2021-07-17 Office [facility] 1.2.840.114 [id number] Univers 10:20:00 10:50:00 Visit Khushbu LEO 350.1.13.10 ity [facility] 4[place]2.[place] [id number] Pr dical NAL 059 [facility] 2021-07-17 2021-07-17 Out[facility] [id number] Univers 10:20:00 10:50:00 KHUSHBU zarco o [facility] 2021-07-17 2021-07-17 Outpatient [facility] [id number] Univers 10:20:00 10:20:00 [facility] 2021-07-17 2021-07-17 Orders Doctor ALBRIGHT 1.2.840.114 [id number] Univers 00:00:00 00:00:00 Only Unassigned, MOI 350.1.13.10 ity of [facility] 4.2.7.2.686 [place] [id number] [place] [address] Branch 2021-07-10 2021-07-10 Outpatient GC_EBMD_Maru PRIV PRIV [id number] [facility] 12:12:00 12:12:00 Avinash [id number] Medica l 2021-07-10 2021-07-10 Otilia GONZALEZ [place] - [facility] [id number] [facility] 00:00:00 00:00:00 [facility] - Medic surekha Gomez GC_EBMD_Edis RAPHAEL: [address] [facility] [address], [place] [address] , Ph. 2021-07-10 2021-07-10 Outpatient LISA Gomez PRIV [id number] 00:00:00 00:00:00 Otilia 018-11ec-a Batsheva o3b-889ozh d4e90b 2021-07-03 2021-07-03 Emergency X [facility] ERT [id number] Univers 17:50:00 20:24:00 KLEBER ity [facility] 2021-07-03 2021-07-03 Emergency [facility] [id number] Univers 17:50:00 20:24:00 Kleber BAILEY [id number] i ty of [place] 4.2.7.2.686 [facility] [id number] [facility] [address] 2021-07-03 2021-07-03 Emergency X [facility] ERT [id number] Univers 17:50:00 20:24:00 KLEBER zarco [facility] 2021-07-02 2021-07-02 Outpatient GC_EBMD_Bai PRIV PRIV [id number] [facility] 10:26:00 10:26:00 leana_Kadeem [id number] Medica l 2021-04-18 2021-04-18 Orders Doctor NATALEE [id number] Univers 00:00:00 00:00:00 Only Unassigned, MOI [id number] ity of [place] [facility] 4.2.7.2.686 [place] [id number] [facility] [address] 2021-04-12 2021-04-12 Office [facility] 1.2.840.114 [id number] Univers 16:08:50 17:09:59 Visit Angella Bailey 350.1.13.10 i ty of [place] 4.2.7.2.686 [facility] Professio [id number] Pr dical nal 098 [facility] 2021-04-12 2021-04-12 Outpatient [facility] [id number] Univers 16:00:00 16:00:00 ANGELLA zarco [facility] 2021-04-12 2021-04-12 Orders Doctor NATALEE [id number] Univers 00:00:00 00:00:00 Only Unassigned, MOI [id number] ity of [place] [facility] 4.2.7.2.686 [place] [id number] [address] 2021-04-09 2021-04-09 Office Elvia Watson [facility] 1.2.840.114 [id number] Univers 10:46:33 12:04:30 Visit HEALTH 350.1.13.10 it [place] MEDICINE [phone] Med ical JOAQUIN [address] [place] [address] 2021-04-09 2021-04-09 Outpatient R ELVIA WATSON [facility] [id number] Univers 11:30:00 11:30:00 ity of [facility] 2021-04-09 2021-04-09 Letter Elvia Watson [facility] [id number] Univers 00:00:00 00:00:00 (Out) HEALTH [id number] it [place] [phone] Med ical JOAQUIN [address] [place] [address] 2021-03-18 2021-03-18 [facility] [id number] 04:35:00 04:35:00 927 Commun i [facility] 2021-03-18 2021-03-18 [facility] [id number] e-1 00:00:00 00:00:00 Aranza [id number] 2021-03-18 2021-03-18 [facility] [place] 00:00:00 00:00:00 [facility] [place] [facility]ER[facility]-SIFTER OPERATOR-C: Hospital - ty [address] [place] [address] [address], [place] [address] , Ph. 2020-12-05 2020-12-05 Outpatient R GALINDO [facility] [id number] Univers 08:40:00 08:47:25 KHUSHBU gonzales [facility] 2020-12-05 2020-12-05 Outpatient R GALINDO [facility] [id number] Univers 08:40:00 08:47:25 KHUSHBU zarco o f [facility] 2020-12-05 2020-12-05 [facility] [id number] Univers 08:03:36 08:47:25 Visit Khushbu Bailey [id number] [place] Profess[place] [phone] Pr dical critical access hospital [address] [facility] 2020-11-30 2020-11-30 Transition Jennifer Parrish [id number] Univers 00:00:00 00:00:00 of Care Sandy Mercer [id number] i [place] [phone] [place] [address] [address] 2020-11-27 2020-11-29 [facility] Ha Maloney [facility] 1.2.8 40.114 [id number] Univers 11:39:00 12:21:00 Encounter Edgar Giordano [id number] ity of [place] 4.2.7.2.686 [facility] [phone] Medical 0 Branch 2020-11-27 2020-11-27 Emergency X SINGER [facility] ERT [id number] Univers 11:39:00 11:39:00 EDGAR zarco of [facility] 2010-07-25 2010-07-25 Outpatient [facility] [id number] Univers 00:00:00 11:35:20 5 haroldo of [facility] 2007-01-12 2007-01-12 Outpatient [facility] [id number] Univers 00:00:00 12:16:31 2 ity [facility] 2004-09-03 2004-09-05 Inpatient P SHERRYGeeta JASSON [facility] YADIRA [id number] Univers 14:27:00 13:07:00 JASSON GARCIA 0 i ty [facility] 2004-09-03 2004-09-03 Outpatient [facility] [id number] Univers 00:00:00 00:00:00 0 ity [facility] 2004-08-26 2004-08-26 Outpatient P MAHIN SEWELL [facility] [id number] Univers 00:00:00 23:59:00 MARTAFLORESMAHIN Gonzales 4 [facility] Results Test Description Test Time Test Comments Results Result Comments Source LIPID PANEL 2022-09-26 06:02:44 Test Item Value Reference Range Interpretation Comme nts CHOLESTEROL (test code = 2210) 171 MG/DL <200 TRIGLYCERIDES (test code = 2232) 69 MG/DL <150 HDL CHOLESTEROL (test code = 60 MG/DL >39 0) CALC LDL CHOL (test code = 2237) 95 MG/DL <100 NOTE: CALCULATED LDL IS BASED ON CAMRYN-BAEZ METHOD WHICHINCLUDES A DJUSTABLE TRIGLYCERIDE:VL DL CHOLESTEROL RATIO.THIS FACT OR VARIES BY MEASURED TRIGLY CERIDE AND NON-HDLCHOLESTE ROL CONCENTRATIONS WITH INCREASED CALCULATED LDL SEENIN HIGHER T RIGLYCERIDE OR LOWER NON-HDL S PECIMENS. FOR MOREINFORMATION , SEE CLIENT ANNOUNCEMENT AT [email or web address] RATIO LDL/HDL (test code = 1.58 RATIO <3.22 8) COMPREHENSIVE METABOLIC [id number] 06:02:44 Test Item Value Reference Range Interpretation Comments GLUCOSE (test code = 114 MG/DL 70-99 H 2216) BUN (test code = 10 MG/DL 12-09) CREATININE (test 0.47 MG/DL 0.60-1.30 L code = 2214) eGFR (2020 CKD-EPI) 121 >60 (test code = 37021) ML/MIN/1.73 CALC BUN/CREAT (test 21 RATIO - code = 2235) SODIUM (test code = 140 MEQ/L 178-183 9808) POTASSIUM (test code 4.4 MEQ/L 3.5-5.4 = 2228) CHLORIDE (test code 105 MEQ/L 95-107 = 2215) CARBON DIOXIDE (test 23 MEQ/L 19-31 code = 2206) CALCIUM (test code = 9.0 MG/DL 8.5-10.5 2208) PROTEIN, TOTAL (test 7.5 G/DL 6.1-8.3 code = 222) ALBUMIN (test code = 4.0 G/DL 3.5-5.2 2200) CALC GLOBULIN (test 3.5 G/DL 1.9-3.7 code = 2240) CALC A/G RATIO (test 1.1 RATIO 1.0-2.6 code = 223) BILIRUBIN, TOTAL <0.2 MG/DL See_Comment [Automated message] (test code = 2206) The syste m which generated this result transmitted ref erence range: <=1.2. T he reference range was not used to int erpret this result as normal/abnormal . ALKALINE PHOSPHATASE 86 U/L 40-113 (test code = 2203) AST (test code = 27 U/L 9-40 2217) ALT (test code = 41 U/L 5-40 H [facility] hawley s 2218) important patho logy staff changes effective 08/20. New pathol ogy staff will prov gómez uninterrupted, excellent patie nt care and clinic al consultation. S ee URL: [email or web address]. UNLE SS OTHERWISE INDIC ATED, ALL TESTING PER FORMED AT [facility] [employer] [facility], [address] [address] DEDRA LESLEY DIRECTOR: Darrin WONG JANE NUMBER [id number] CAP ACCREDITATION N O. [id number] HEMOGLOBIN [id number] 05:47:37 Test Item Value Reference Range Interpretation Comments HEMOGLOBIN A1c (test 5.7 % 4.2-5.6 H AMERIC AN DIABETES code = 50724) ASSOCIATION IDELINES FOR HGB A1C: PREDIABETES/INC REASED RISK . . . . . . . 5.7 -6.4% DIAGNOSIS OF DI ABETES . . . . . . . . . >=6 .5% WITH CONFIRMATION OR APPROPRIATE SYMPTOMS NOTE: ASSAY MAY BE AFFECTED BY HEMOGLOBINOPATH IES (SICKLE CELL ANEMIA, S- C DISEASE, OTHERS) OR ANDREY FICIALLY LOWERED BY DECR EASED RED CELL SURVIVAL ( HEMOLYTIC ANEMIAS, BLOOD LOSS, ETC.). CONSIDER ALTERN ATE TESTING OR LABORATORY C ONSULTATION. CBC W/AUTO DIFF WITH [id number] 04:18:09 Test Item Value Reference Range Interpretation Comments WBC (test code = 6.6 K/UL 3.5-11.0 1001) RBC (test code = 4.22 M/UL 3.80-5.40 1002) HEMOGLOBIN (test code 10.6 G/DL 11.5-15.5 L = 1003) HEMATOCRIT (test code 33.6 % 34.0-45.0 L = 1004) MCV (test code = 79.6 fL 80.0-99.0 L 1005) MCH (test code = 25.1 PG 25.0-33.0 1006) MCHC (test code = 31.5 G/DL 31.0-36.0 1007) RDW (test code = 13.2 % 11.5-15.0 1038) NEUTROPHILS (test 61.2 % code = 1008) LYMPHOCYTES (test 26.4 % code = 1010) MONOCYTES (test code 7.9 % = 1011) EOSINOPHILS (test 1.7 % code = 1012) BASOPHILS (test code 0.8 % = 1013) IMMATURE GRANULOCYTES 2.0 % (test code = 1036) NUCLEATED RBCS (test 0.0 /100 WBC'S See_Comment [Aut omated code = 1065) message] The sy stem which generated this result transmitted reference range : 0.0. The refere nce range was not u sed to interpret th is result as normal/abnormal . PLATELET COUNT (test 227 K/UL 130-400 code = 1015) ABSOLUTE NEUTROPHILS 4.06 K/UL 1.50-7.50 (test code = 1066) ABSOLUTE LYMPHOCYTES 1.75 K/UL 1.00-4.00 (test code = 1067) ABSOLUTE MONOCYTES 0.52 K/UL 0.20-1.00 (test code = 1068) ABSOLUTE EOSINOPHILS 0.11 K/UL 0.00-0.50 (test code = 1040) ABSOLUTE BASOPHILS 0.05 K/UL 0.00-0.20 (test code = 1069) ABS IMMATURE 0.13 K/UL 0.00-0.10 H GRANULOCYTES (test code = 1020) ABS NUCLEATED RBCS 0.00 K/UL 0.00-0.11 (test code = 36258) TROPONIN [id number] 16:23:25 Test Item Value Reference Range Interpretation Comments TROPONIN I (test code = 0.020 ng/mL <=0.034 [id number]) ARMANDO (test code = ARMANDO) Reference (Normal) Range (defined by the 99th percentile reference limit): <= 0.034 ng/mL Note: Cardiac troponin begins to rise 3-4 hours after the onset of ischemia. Repeat in 4-6 hours if the sample was drawn within 3-4 hours of the onset of the symptom and found normal. Diagnosis of myocardial injury is made with acute changes in cTn concentrations with at least one serial sample above the 99th percentile upper reference limit (URL), taken together with the patient's clinical presentation. Biotin has been reported to cause a negative bias, interpret results relative to patient's use of biotin. Lab Interpretation Normal (test code = 75626-4) [facility] WITH [id number] 16:13:02 Test Item Value Reference Range Interpretation Comments WBC (test code = 12.50 See_Comment H [Automated 9308-2) message] The sy stem which generated this result transmitted reference range : 4.30 - 11.10 10*3/?L. The reference range was not used to interpret this result as normal/abnormal . RBC (test code = 4.08 See_Comment [Automated 279-8) message] The sy stem which generated this result transmitted reference range : 3.93 - 5.25 10*6/?L. The reference range was not used to interpret this result as normal/abnormal . HGB (test code = 10.9 g/dL 11.6-15.0 L 718-7) HCT (test code = 34.5 % 35.7-45.2 L 4544-3) MCV (test code = 84.6 fL 80.6-95.5 787-2) MCH (test code = 26.7 pg 25.9-32.8 785-6) MCHC (test code = 31.6 g/dL 31.6-35.1 786-4) RDW-SD (test code = 41.2 fL 39.0-49.9 60689-5) RDW-CV (test code = 13.4 % 12.0-15.5 788-0) PLT (test code = 309 See_Comment [Automated 777-3) message] The sy stem which generated this result transmitted reference range : 166 - 358 10*3/ ?L. The reference r mariah was not used to interpret this result as normal/abnormal . MPV (test code = 9.5 fL 9.5-12.9 31695-2) NRBC/100 WBC (test 0.0 See_Comment [Automat ed code = 3970407102) message] The system which generated this result transmitted reference range : 0.0 - 10.0 /100 WBCs. The refer ence range was not u sed to interpret th is result as normal/abnormal . NRBC x10^3 (test code See_Comment [Auto mated = 7435438935) message] The s ystem which generated this result transmitted reference range : 10*3/?L. The reference range was not used to interpret this result as normal/abnormal . GRAN MAT (NEUT) % 69.5 % (test code = 770-8) IMM GRAN % (test code 1.50 % = 4651056576) LYMPH % (test code = 22.6 % 736-9) MONO % (test code = 4.8 % 5905-5) EOS % (test code = 1.2 % 713-8) BASO % (test code = 0.4 % 706-2) GRAN MAT x10^3(ANC) 8.68 10*3/uL 1.88-7.09 H (test code = 4174974685) IMM GRAN x10^3 (test 0.19 10*3/uL 0.00-0.06 H code = 7179986620) LYMPH x10^3 (test code 2.83 10*3/uL 1.32-3.29 = 731-0) MONO x10^3 (test code 0.60 10*3/uL 0.33-0.92 = 742-7) EOS x10^3 (test code = 0.15 10*3/uL 0.03-0.39 711-2) BASO x10^3 (test code 0.05 10*3/uL 0.01-0.07 = 704-7) Lab Interpretation Abnormal (test code = 57709-6) [facility] Test Item Value Reference Range Interpretation Comments MAGNESIUM (test code = 5394487340) 2.0 mg/dL 1.7-2.4 Lab Interpretation (test code = Normal 05938-6) [facility]OL[facility] PANEL (27334)2022-08-22 16:12:26 Test Item Value Reference Range Interpretation Comments NA (test code = 138 mmol/L 135-145 2474068248) K (test code = 4.7 mmol/L 3.5-5.0 3282608591) CL (test code = 109 mmol/L 98-108 H 9231662603) CO2 TOTAL (test code = 21 mmol/L 23-31 L 2498399436) AGAP (test code = 8 2-16 6325217912) BUN (test code = 9 mg/dL 7-23 7847940155) GLUCOSE (test code = 129 mg/dL 70-110 H 8292984849) CREATININE (test code = 0.55 mg/dL 0.50-1.04 9295547230) TOTAL BILI (test code = 0.4 mg/dL 0.1-1.7 3247775167) CALCIUM (test code = 8.8 mg/dL 8.6-10.6 8459278528) T PROTEIN (test code = 7.4 g/dL 6.3-8.2 5566290709) ALBUMIN (test code = 4.1 g/dL 3.5-5.0 7054391226) ALK PHOS (test code = 83 U/L 34-122 6394970098) ALTv (test code = 37 U/L 5-35 H 1742-6) AST(SGOT) (test code = 30 U/L 13-40 8058125074) eGFR (test code = 120.6 mL/min/1.73m2 0016567855) ARMANDO (test code = ARMANDO) Association of Glomerular Filtration Rate (GFR) and Staging of Kidney Disease* + --+ --+ ------+| GFR (mL/min/1.73 m2) ?| With Kidney Damage ?| ?Without Kidney Damage+ --------+ --------+ +| ?>90 ?| ?Stage one ?| ? Normal ?+ ---+ ---+ -------+| ?60-89 ?| ?Stage two ?| ? Decreased GFR ? + --+ --+ ------+| ?30-59 ?| ?Stage three ?| ? Stage three ? + --+ --+ ------+| ?15-29 ?| ?Stage four ? | ? Stage four ?+ ---+ ---+ -------+| ?<15 (or dialysis) ? ?| ?Stage five ? | ? Stage five ?+ ---+ ---+ -------+ *Each stage assumes the associated GFR level has been in effect for at least three months. ?Stages 1 to 5, with or without kidney disease, indicate chronic kidney disease. Notes: Determination of stages one and two (with eGFR >59mL/min/1.73 m2) requires estimation of kidney damage for at least three months as defined by structural or functional abnormalities of the kidney, manifested by either:Pathological abnormalities or Markers of kidney damage (including abnormalities in the composition of the blood or urine or abnormalities in imaging tests). Lab Interpretation Abnormal (test code = 70405-2) [facility] 12 AND FOLIC [id number] 07:01:24 Test Item Value Reference Range Interpretation Comments VITAMIN B-12 (test 734 PG/ML 200-950 code = 2840) FOLIC ACID (test 12.7 UG/L SEE BELOW INTE RPRETIVE code = 2695) RANGES DE FICIENCY . . . . . . . . . . . . . . . UG/L <4.0 POSSIBLE DEFICIENCY. . . . . . . . . . . UG/L 4 .0-5.9 SUFFICIENT . . . . . . . . . . . . . . . UG/L >=6.0 [id number] 07:01:24 Test Item Value Reference Range Interpretation Comments FERRITIN (test code = 2075) 114 NG/ML 13-200 VITAMIN D, 25 [id number] 04:52:58 Test Item Value Reference Range Interpretation Comments VITAMIN D, 25 OH 24 NG/ML SEE BELOW L NOTE: 25-H YDROXYVITAMIN D (test code = 4958) ASSAY INC LUDES 25-HYDROXYVITAM IN D2 AND D3. METHODOLOGY IS CHEMILUMINESCEN T IMMUNOASSAY. INTERPRETIVE RA NGES PEDIATRIC (<17 YEARS) . . . . . . . . . . . NG/ML 20-100ADULT: IN SUFFICIENT . . . . . . . . . . . . . . NG/ML <20 SUBOP TIMAL . . . . . . . . . . . . . . . NG/ML 20-29 OPT IMAL . . . . . . . . . . . . . . . . . NG/ML 30-100 UN LESS OTHERWISE INDIC ATED, ALL TESTING PERFORM ED ATCLINICAL PATH OLOGY LABORATORIES, [place]. [address] [place] [address] LABORATORY DIRE CTOR: Kely DINERO. CLIA NUMBER [id number] CAP ACCREDITATION N O. [id number] IRON BINDING CAPACITY AND IRON AND % [id number] 04:52:04 Test Item Value Reference Range Interpretation Comments IRON, SERUM (test code = 2221) 38 UG/DL 37-145 UNSATURATED IBC (test code = ) 330 UG/DL 112-347 CALC TOTAL IBC (test code = 2076) 368 UG/DL 250-450 CALC % IRON SAT (test code = 2078) 10 % 20-50 L [id number] 04:51:53 Test Item Value Reference Range Interpretation Comments MAGNESIUM (test code = 2225) 2.1 MG/DL 1.6-2.6 [id number] 04:51:53 Test Item Value Reference Range Interpretation Comments TRANSFERRIN (test code = 4936) 318 MG/DL 200-360 IRON BINDING CAPACITY AND IRON AND % SATURATION [ADDED]2022-03-22 00:00:00 Test Item Value Reference Range Interpretation Comments IRON, SERUM (test code = 2221) 38 UG/DL UNSATURATED IBC (test code = ) 330 UG/DL CALC TOTAL IBC (test code = 7) 368 UG/DL CALC % IRON SAT (test code = 2078) 10 % IRON BINDING CAPACITY AND IRON AND % SATURATION [ADDED]2022-03-22 00:00:00 Test Item Value Reference Range Interpretation Comments IRON, SERUM (test code = 2221) 38 UG/DL UNSATURATED IBC (test code = ) 330 UG/DL CALC TOTAL IBC (test code = 7) 368 UG/DL CALC % IRON SAT (test code = 207) 10 % MAGNESIUM [ADDED]2022-03-22 00:00:00 Test Item Value Reference Range Interpretation Comments MAGNESIUM (test code = 2226) 2.1 MG/DL MAGNESIUM [ADDED]2022-03-22 00:00:00 Test Item Value Reference Range Interpretation Comments MAGNESIUM (test code = 2226) 2.1 MG/DL MAGNESIUM [ADDED]2022-03-22 00:00:00 Test Item Value Reference Range Interpretation Comments MAGNESIUM (test code = 2226) 2.1 MG/DL VITAMIN B 12 AND FOLIC ACID [ADDED]2022-03-22 00:00:00 Test Item Value Reference Range Interpretation Comments VITAMIN B-12 (test code = 2840) 734 PG/ML FOLIC ACID (test code = 2695) 12.7 UG/L VITAMIN B 12 AND FOLIC ACID [ADDED]2022-03-22 00:00:00 Test Item Value Reference Range Interpretation Comments VITAMIN B-12 (test code = 2840) 734 PG/ML FOLIC ACID (test code = 2695) 12.7 UG/L TRANSFERRIN [ADDED]2022-03-22 00:00:00 Test Item Value Reference Range Interpretation Comments TRANSFERRIN (test code = 4936) 318 MG/DL TRANSFERRIN [ADDED]2022-03-22 00:00:00 Test Item Value Reference Range Interpretation Comments TRANSFERRIN (test code = 4936) 318 MG/DL FERRITIN [ADDED]2022-03-22 00:00:00 Test Item Value Reference Range Interpretation Comments FERRITIN (test code = 2075) 114 NG/ML FERRITIN [ADDED]2022-03-22 00:00:00 Test Item Value Reference Range Interpretation Comments FERRITIN (test code = 2075) 114 NG/ML VITAMIN D, 25 OH [ADDED]2022-03-22 00:00:00 Test Item Value Reference Range Interpretation Comments VITAMIN D, 25 OH (test code = 4958) 24 NG/ML VITAMIN D, 25 OH [ADDED]2022-03-22 00:00:00 Test Item Value Reference Range Interpretation Comments VITAMIN D, 25 OH (test code = 4958) 24 NG/ML IRON BINDING CAPACITY AND IRON AND % SATURATION [ADDED]2022-03-22 00:00:00 Test Item Value Reference Range Interpretation Comments IRON, SERUM (test code = 2221) 38 UG/DL UNSATURATED IBC (test code = ) 330 UG/DL CALC TOTAL IBC (test code = 2076) 368 UG/DL CALC % IRON SAT (test code = 2078) 10 % IRON BINDING CAPACITY AND IRON AND % SATURATION [ADDED]2022-03-22 00:00:00 Test Item Value Reference Range Interpretation Comments IRON, SERUM (test code = 2221) 38 UG/DL UNSATURATED IBC (test code = ) 330 UG/DL CALC TOTAL IBC (test code = 2076) 368 UG/DL CALC % IRON SAT (test code = 2078) 10 % MAGNESIUM [ADDED]2022-03-22 00:00:00 Test Item Value Reference Range Interpretation Comments MAGNESIUM (test code = 2226) 2.1 MG/DL MAGNESIUM [ADDED]2022-03-22 00:00:00 Test Item Value Reference Range Interpretation Comments MAGNESIUM (test code = 2226) 2.1 MG/DL MAGNESIUM [ADDED]2022-03-22 00:00:00 Test Item Value Reference Range Interpretation Comments MAGNESIUM (test code = 2226) 2.1 MG/DL VITAMIN B 12 AND FOLIC ACID [ADDED]2022-03-22 00:00:00 Test Item Value Reference Range Interpretation Comments VITAMIN B-12 (test code = 2840) 734 PG/ML FOLIC ACID (test code = 2695) 12.7 UG/L VITAMIN B 12 AND FOLIC ACID [ADDED]2022-03-22 00:00:00 Test Item Value Reference Range Interpretation Comments VITAMIN B-12 (test code = 2840) 734 PG/ML FOLIC ACID (test code = 2695) 12.7 UG/L TRANSFERRIN [ADDED]2022-03-22 00:00:00 Test Item Value Reference Range Interpretation Comments TRANSFERRIN (test code = 4936) 318 MG/DL TRANSFERRIN [ADDED]2022-03-22 00:00:00 Test Item Value Reference Range Interpretation Comments TRANSFERRIN (test code = 4936) 318 MG/DL FERRITIN [ADDED]2022-03-22 00:00:00 Test Item Value Reference Range Interpretation Comments FERRITIN (test code = 2075) 114 NG/ML FERRITIN [ADDED]2022-03-22 00:00:00 Test Item Value Reference Range Interpretation Comments FERRITIN (test code = 2075) 114 NG/ML VITAMIN D, 25 OH [ADDED]2022-03-22 00:00:00 Test Item Value Reference Range Interpretation Comments VITAMIN D, 25 OH (test code = 4958) 24 NG/ML VITAMIN D, 25 OH [ADDED]2022-03-22 00:00:00 Test Item Value Reference Range Interpretation Comments VITAMIN D, 25 OH (test code = 4958) 24 NG/ML CBC W/AUTO DIFF WITH [id number] 10:44:52 Test Item Value Reference Range Interpretation Comments WBC (test code = 9.2 K/UL 3.5-11.0 1001) RBC (test code = 4.20 M/UL 3.80-5.40 1002) HEMOGLOBIN (test 11.2 G/DL 11.5-15.5 L code = 1003) HEMATOCRIT (test 36.0 % 34.0-45.0 code = 1004) MCV (test code = 85.7 fL 80.0-99.0 1005) MCH (test code = 26.7 PG 25.0-33.0 1006) MCHC (test code = 31.1 G/DL 31.0-36.0 1007) RDW (test code = 14.3 % 11.5-15.0 1038) NEUTROPHILS (test 71.1 % code = 1008) LYMPHOCYTES (test 20.2 % code = 1010) MONOCYTES (test code 5.1 % = 1011) EOSINOPHILS (test 1.7 % code = 1012) BASOPHILS (test code 0.5 % = 1013) IMMATURE 1.4 % GRANULOCYTES (test code = 1036) NUCLEATED RBCS (test 0.0 /100 See_Comment [Autom ated message] code = 1065) WBC'S The system [employer] generated this result transmitted ref erence range: 0.0. The reference range was not used to int erpret this result as normal/abnormal . PLATELET COUNT (test 257 K/UL 130-400 code = 1015) ABSOLUTE NEUTROPHILS 6.50 K/UL 1.50-7.50 (test code = 1066) ABSOLUTE LYMPHOCYTES 1.85 K/UL 1.00-4.00 (test code = 1067) ABSOLUTE MONOCYTES 0.47 K/UL 0.20-1.00 (test code = 1068) ABSOLUTE EOSINOPHILS 0.16 K/UL 0.00-0.50 (test code = 1040) ABSOLUTE BASOPHILS 0.05 K/UL 0.00-0.20 (test code = 1069) ABS IMMATURE 0.13 K/UL 0.00-0.10 H GRANULOCYTES (test code = 1020) ABS NUCLEATED RBCS 0.00 K/UL 0.00-0.11 UNLESS O THERWISE (test code = 49879) INDICATE D, ALL TESTING PERFORM ED ATCLINICAL PATH OLOGY LABORATORIES, [facility]. [address] [place], [place] [id number] [place] [address] DIRECTOR: KING DESAI M.D. CLIA NUMBER [id number] CAP ACCREDITATION N O. [id number] TSH + FREE T4 [id number] 10:34:24 Test Item Value Reference Range Interpretation Comments TSH, THIRD GENERATION (test code 3.600 UIU/ML 0.400-4.100 = 2821) FREE T4 (THYROXINE) (test code = 0.95 NG/DL 0.80-1.90 2823) HEMOGLOBIN [id number] 09:34:56 Test Item Value Reference Range Interpretation Comments HEMOGLOBIN A1c (test code = 89001) 5.5 % 4.2-5.6 LIPID [id number] 06:24:23 Test Item Value Reference Range Interpretation Comments CHOLESTEROL (test 220 MG/DL <200 H code = 2210) TRIGLYCERIDES (test 105 MG/DL <150 code = 2232) HDL CHOLESTEROL (test 70 MG/DL >39 code = 2220) CALC LDL CHOL (test 129 MG/DL <100 H NOTE: C ALCULATED LDL code = 2237) IS BASED ON CAMRYN-BAEZ METHOD WHICHINCLUDES ADJUSTABLE TRIGLYCERIDE:VL DL CHOLESTEROL RAT IO.THIS FACTOR VARIES B Y MEASURED TRIGLY CERIDE AND NON-HDLCHOL ESTEROL CONCENTRATIONS WITH INCREASED CALCU LATED LDL SEENIN HIGH ER TRIGLYCERIDE OR LOWER NON-HDL SPECIME NS. FOR MOREINFORMATION , SEE CLIENT ANNOUNCE MENT AT [email or web address] LDL/HDL 1.84 RATIO <3.22 (test code = 2238) COMPREHENSIVE METABOLIC [id number] 06:24:23 Test Item Value Reference Range Interpretation Comments GLUCOSE (test code = 125 MG/DL 70-99 H 2216) BUN (test code = 7 MG/DL 6-20 2207) CREATININE (test 0.47 MG/DL 0.60-1.30 L code = 2213) eGFR (2020 CKD-EPI) 121 >60 (test code = 66664) ML/MIN/1.73 CALC BUN/CREAT (test 15 RATIO 12-17 code = 2235) SODIUM (test code = 141 MEQ/L 784-581 1339) POTASSIUM (test code 4.5 MEQ/L 3.5-5.4 = 2227) CHLORIDE (test code 104 MEQ/L 95-107 = 2214) CARBON DIOXIDE (test 25 MEQ/L 19-31 code = 220) CALCIUM (test code = 9.5 MG/DL 8.5-10.5 2208) PROTEIN, TOTAL (test 7.2 G/DL 6.1-8.3 code = 2228) ALBUMIN (test code = 4.1 G/DL 3.5-5.2 2200) CALC GLOBULIN (test 3.1 G/DL 1.9-3.7 code = 2239) CALC A/G RATIO (test 1.3 RATIO 1.0-2.6 code = 223) BILIRUBIN, TOTAL <0.2 MG/DL See_Comment [Automated message] (test code = 2207) The syste m which generated this result transmit katerine reference range : <=1.2. The refe rence range was not u sed to interpret th is result as normal/abnormal . ALKALINE PHOSPHATASE 108 U/L 40-113 (test code = 2204) AST (test code = 94 U/L 9-40 H 2217) ALT (test code = 99 U/L 5-40 H 2218) HEMOGLOBIN A1c [ADDED]2022-03-19 00:00:00 Test Item Value Reference Range Interpretation Comments HEMOGLOBIN A1c (test code = 22536) 5.5 % HEMOGLOBIN A1c [ADDED]2022-03-19 00:00:00 Test Item Value Reference Range Interpretation Comments HEMOGLOBIN A1c (test code = 00323) 5.5 % HEMOGLOBIN A1c [ADDED]2022-03-19 00:00:00 Test Item Value Reference Range Interpretation Comments HEMOGLOBIN A1c (test code = 15044) 5.5 % LIPID PANEL [ADDED]2022-03-19 00:00:00 Test Item Value Reference Range Interpretation Comments CHOLESTEROL (test code = 2210) 220 MG/DL TRIGLYCERIDES (test code = 2232) 105 MG/DL HDL CHOLESTEROL (test code = 2220) 70 MG/DL CALC LDL CHOL (test code = 2237) 129 MG/DL RISK RATIO LDL/HDL (test code = 1.84 RATIO 2238) LIPID PANEL [ADDED]2022-03-19 00:00:00 Test Item Value Reference Range Interpretation Comments CHOLESTEROL (test code = 2210) 220 MG/DL TRIGLYCERIDES (test code = 2232) 105 MG/DL HDL CHOLESTEROL (test code = 2220) 70 MG/DL CALC LDL CHOL (test code = 2237) 129 MG/DL RISK RATIO LDL/HDL (test code = 1.84 RATIO 2238) COMPREHENSIVE METABOLIC PANEL [ADDED]2022-03-19 00:00:00 Test Item Value Reference Range Interpretation Comments GLUCOSE (test code = 2217) 125 MG/DL BUN (test code = 2208) 7 MG/DL CREATININE (test code = 2214) 0.47 MG/DL eGFR (2020 CKD-EPI) (test 121 ML/MIN/1.73 code = 56514) CALC BUN/CREAT (test code = 15 RATIO 2235) SODIUM (test code = 2231) 141 MEQ/L POTASSIUM (test code = 2228) 4.5 MEQ/L CHLORIDE (test code = 2215) 104 MEQ/L CARBON DIOXIDE (test code = 25 MEQ/L 2205) CALCIUM (test code = 2209) 9.5 MG/DL PROTEIN, TOTAL (test code = 7.2 G/DL 2228) ALBUMIN (test code = 2201) 4.1 G/DL CALC GLOBULIN (test code = 3.1 G/DL 2240) CALC A/G RATIO (test code = 1.3 RATIO 2234) BILIRUBIN, TOTAL (test code = <0.2 MG/DL 2206) ALKALINE PHOSPHATASE (test 108 U/L code = 2204) AST (test code = 2218) 94 U/L ALT (test code = 2219) 99 U/L COMPREHENSIVE METABOLIC PANEL [ADDED]2022-03-19 00:00:00 Test Item Value Reference Range Interpretation Comments GLUCOSE (test code = 2217) 125 MG/DL BUN (test code = 2208) 7 MG/DL CREATININE (test code = 2214) 0.47 MG/DL eGFR (2020 CKD-EPI) (test 121 ML/MIN/1.73 code = 41865) CALC BUN/CREAT (test code = 15 RATIO 2234) SODIUM (test code = 2231) 141 MEQ/L POTASSIUM (test code = 2228) 4.5 MEQ/L CHLORIDE (test code = 2215) 104 MEQ/L CARBON DIOXIDE (test code = 25 MEQ/L 2205) CALCIUM (test code = 2209) 9.5 MG/DL PROTEIN, TOTAL (test code = 7.2 G/DL 2228) ALBUMIN (test code = 220) 4.1 G/DL CALC GLOBULIN (test code = 3.1 G/DL 2239) CALC A/G RATIO (test code = 1.3 RATIO 2233) BILIRUBIN, TOTAL (test code = <0.2 MG/DL 2206) ALKALINE PHOSPHATASE (test 108 U/L code = 220) AST (test code = 2218) 94 U/L ALT (test code = 2219) 99 U/L TSH + FREE T4 PROFILE [ADDED]2022-03-19 00:00:00 Test Item Value Reference Range Interpretation Comments TSH, THIRD GENERATION (test code 3.600 UIU/ML = 2821) FREE T4 (THYROXINE) (test code = 0.95 NG/DL 2823) TSH + FREE T4 PROFILE [ADDED]2022-03-19 00:00:00 Test Item Value Reference Range Interpretation Comments TSH, THIRD GENERATION (test code 3.600 UIU/ML = 2821) FREE T4 (THYROXINE) (test code = 0.95 NG/DL 2823) TSH + FREE T4 PROFILE [ADDED]2022-03-19 00:00:00 Test Item Value Reference Range Interpretation Comments TSH, THIRD GENERATION (test code 3.600 UIU/ML = 2821) FREE T4 (THYROXINE) (test code = 0.95 NG/DL 2823) CBC W/AUTO DIFF WITH PLATELETS [ADDED]2022-03-19 00:00:00 Test Item Value Reference Range Interpretation Comments WBC (test code = 1001) 9.2 K/UL RBC (test code = 1002) 4.20 M/UL HEMOGLOBIN (test code = 1003) 11.2 G/DL HEMATOCRIT (test code = 1004) 36.0 % MCV (test code = 1005) 85.7 fL MCH (test code = 1006) 26.7 PG MCHC (test code = 1007) 31.1 G/DL RDW (test code = 1038) 14.3 % NEUTROPHILS (test code = 1008) 71.1 % LYMPHOCYTES (test code = 1010) 20.2 % MONOCYTES (test code = 1011) 5.1 % EOSINOPHILS (test code = 1012) 1.7 % BASOPHILS (test code = 1013) 0.5 % IMMATURE GRANULOCYTES (test 1.4 % code = 1036) NUCLEATED RBCS (test code = 0.0 /100WBC'S 1065) PLATELET COUNT (test code = 257 K/UL 1015) ABSOLUTE NEUTROPHILS (test code 6.50 K/UL = 1066) ABSOLUTE LYMPHOCYTES (test code 1.85 K/UL = 1067) ABSOLUTE MONOCYTES (test code = 0.47 K/UL 1068) ABSOLUTE EOSINOPHILS (test code 0.16 K/UL = 1040) ABSOLUTE BASOPHILS (test code = 0.05 K/UL 1069) ABS IMMATURE GRANULOCYTES (test 0.13 K/UL code = 1020) ABS NUCLEATED RBCS (test code = 0.00 K/UL 45495) CBC W/AUTO DIFF WITH PLATELETS [ADDED]2022-03-19 00:00:00 Test Item Value Reference Range Interpretation Comments WBC (test code = 1001) 9.2 K/UL RBC (test code = 1002) 4.20 M/UL HEMOGLOBIN (test code = 1003) 11.2 G/DL HEMATOCRIT (test code = 1004) 36.0 % MCV (test code = 1005) 85.7 fL MCH (test code = 1006) 26.7 PG MCHC (test code = 1007) 31.1 G/DL RDW (test code = 1038) 14.3 % NEUTROPHILS (test code = 1008) 71.1 % LYMPHOCYTES (test code = 1010) 20.2 % MONOCYTES (test code = 1011) 5.1 % EOSINOPHILS (test code = 1012) 1.7 % BASOPHILS (test code = 1013) 0.5 % IMMATURE GRANULOCYTES (test 1.4 % code = 1036) NUCLEATED RBCS (test code = 0.0 /100WBC'S 1065) PLATELET COUNT (test code = 257 K/UL 1015) ABSOLUTE NEUTROPHILS (test code 6.50 K/UL = 1066) ABSOLUTE LYMPHOCYTES (test code 1.85 K/UL = 1067) ABSOLUTE MONOCYTES (test code = 0.47 K/UL 1068) ABSOLUTE EOSINOPHILS (test code 0.16 K/UL = 1040) ABSOLUTE BASOPHILS (test code = 0.05 K/UL 1069) ABS IMMATURE GRANULOCYTES (test 0.13 K/UL code = 1020) ABS NUCLEATED RBCS (test code = 0.00 K/UL 03897) CBC W/AUTO DIFF WITH PLATELETS [ADDED]2022-03-19 00:00:00 Test Item Value Reference Range Interpretation Comments WBC (test code = 1001) 9.2 K/UL RBC (test code = 1002) 4.20 M/UL HEMOGLOBIN (test code = 1003) 11.2 G/DL HEMATOCRIT (test code = 1004) 36.0 % MCV (test code = 1005) 85.7 fL MCH (test code = 1006) 26.7 PG MCHC (test code = 1007) 31.1 G/DL RDW (test code = 1038) 14.3 % NEUTROPHILS (test code = 1008) 71.1 % LYMPHOCYTES (test code = 1010) 20.2 % MONOCYTES (test code = 1011) 5.1 % EOSINOPHILS (test code = 1012) 1.7 % BASOPHILS (test code = 1013) 0.5 % IMMATURE GRANULOCYTES (test 1.4 % code = 1036) NUCLEATED RBCS (test code = 0.0 /100WBC'S 1065) PLATELET COUNT (test code = 257 K/UL 1015) ABSOLUTE NEUTROPHILS (test code 6.50 K/UL = 1066) ABSOLUTE LYMPHOCYTES (test code 1.85 K/UL = 1067) ABSOLUTE MONOCYTES (test code = 0.47 K/UL 1068) ABSOLUTE EOSINOPHILS (test code 0.16 K/UL = 1040) ABSOLUTE BASOPHILS (test code = 0.05 K/UL 1069) ABS IMMATURE GRANULOCYTES (test 0.13 K/UL code = 1020) ABS NUCLEATED RBCS (test code = 0.00 K/UL 67746) HEMOGLOBIN A1c [ADDED]2022-03-19 00:00:00 Test Item Value Reference Range Interpretation Comments HEMOGLOBIN A1c (test code = 15624) 5.5 % HEMOGLOBIN A1c [ADDED]2022-03-19 00:00:00 Test Item Value Reference Range Interpretation Comments HEMOGLOBIN A1c (test code = 03262) 5.5 % HEMOGLOBIN A1c [ADDED]2022-03-19 00:00:00 Test Item Value Reference Range Interpretation Comments HEMOGLOBIN A1c (test code = 38790) 5.5 % LIPID PANEL [ADDED]2022-03-19 00:00:00 Test Item Value Reference Range Interpretation Comments CHOLESTEROL (test code = 2210) 220 MG/DL TRIGLYCERIDES (test code = 2232) 105 MG/DL HDL CHOLESTEROL (test code = 2220) 70 MG/DL CALC LDL CHOL (test code = 2237) 129 MG/DL RISK RATIO LDL/HDL (test code = 1.84 RATIO 2238) LIPID PANEL [ADDED]2022-03-19 00:00:00 Test Item Value Reference Range Interpretation Comments CHOLESTEROL (test code = 2210) 220 MG/DL TRIGLYCERIDES (test code = 2232) 105 MG/DL HDL CHOLESTEROL (test code = 2220) 70 MG/DL CALC LDL CHOL (test code = 2237) 129 MG/DL RISK RATIO LDL/HDL (test code = 1.84 RATIO 2238) COMPREHENSIVE METABOLIC PANEL [ADDED]2022-03-19 00:00:00 Test Item Value Reference Range Interpretation Comments GLUCOSE (test code = 2217) 125 MG/DL BUN (test code = 2208) 7 MG/DL CREATININE (test code = 2214) 0.47 MG/DL eGFR (2020 CKD-EPI) (test 121 ML/MIN/1.73 code = 02298) CALC BUN/CREAT (test code = 15 RATIO 2235) SODIUM (test code = 2231) 141 MEQ/L POTASSIUM (test code = 2228) 4.5 MEQ/L CHLORIDE (test code = 2215) 104 MEQ/L CARBON DIOXIDE (test code = 25 MEQ/L 2205) CALCIUM (test code = 2209) 9.5 MG/DL PROTEIN, TOTAL (test code = 7.2 G/DL 2228) ALBUMIN (test code = 2201) 4.1 G/DL CALC GLOBULIN (test code = 3.1 G/DL 2240) CALC A/G RATIO (test code = 1.3 RATIO 2234) BILIRUBIN, TOTAL (test code = <0.2 MG/DL 2206) ALKALINE PHOSPHATASE (test 108 U/L code = 2204) AST (test code = 2218) 94 U/L ALT (test code = 2219) 99 U/L COMPREHENSIVE METABOLIC PANEL [ADDED]2022-03-19 00:00:00 Test Item Value Reference Range Interpretation Comments GLUCOSE (test code = 2217) 125 MG/DL BUN (test code = 2208) 7 MG/DL CREATININE (test code = 2214) 0.47 MG/DL eGFR (2020 CKD-EPI) (test 121 ML/MIN/1.73 code = 34975) CALC BUN/CREAT (test code = 15 RATIO 2234) SODIUM (test code = 2231) 141 MEQ/L POTASSIUM (test code = 2228) 4.5 MEQ/L CHLORIDE (test code = 2215) 104 MEQ/L CARBON DIOXIDE (test code = 25 MEQ/L 2205) CALCIUM (test code = 220) 9.5 MG/DL PROTEIN, TOTAL (test code = 7.2 G/DL 2228) ALBUMIN (test code = 220) 4.1 G/DL CALC GLOBULIN (test code = 3.1 G/DL 2239) CALC A/G RATIO (test code = 1.3 RATIO 2233) BILIRUBIN, TOTAL (test code = <0.2 MG/DL 2206) ALKALINE PHOSPHATASE (test 108 U/L code = 220) AST (test code = 2218) 94 U/L ALT (test code = 2219) 99 U/L TSH + FREE T4 PROFILE [ADDED]2022-03-19 00:00:00 Test Item Value Reference Range Interpretation Comments TSH, THIRD GENERATION (test code 3.600 UIU/ML = 2821) FREE T4 (THYROXINE) (test code = 0.95 NG/DL 2823) TSH + FREE T4 PROFILE [ADDED]2022-03-19 00:00:00 Test Item Value Reference Range Interpretation Comments TSH, THIRD GENERATION (test code 3.600 UIU/ML = 2821) FREE T4 (THYROXINE) (test code = 0.95 NG/DL 2823) TSH + FREE T4 PROFILE [ADDED]2022-03-19 00:00:00 Test Item Value Reference Range Interpretation Comments TSH, THIRD GENERATION (test code 3.600 UIU/ML = 2821) FREE T4 (THYROXINE) (test code = 0.95 NG/DL 2823) CBC W/AUTO DIFF WITH PLATELETS [ADDED]2022-03-19 00:00:00 Test Item Value Reference Range Interpretation Comments WBC (test code = 1001) 9.2 K/UL RBC (test code = 1002) 4.20 M/UL HEMOGLOBIN (test code = 1003) 11.2 G/DL HEMATOCRIT (test code = 1004) 36.0 % MCV (test code = 1005) 85.7 fL MCH (test code = 1006) 26.7 PG MCHC (test code = 1007) 31.1 G/DL RDW (test code = 1038) 14.3 % NEUTROPHILS (test code = 1008) 71.1 % LYMPHOCYTES (test code = 1010) 20.2 % MONOCYTES (test code = 1011) 5.1 % EOSINOPHILS (test code = 1012) 1.7 % BASOPHILS (test code = 1013) 0.5 % IMMATURE GRANULOCYTES (test 1.4 % code = 1036) NUCLEATED RBCS (test code = 0.0 /100WBC'S 1065) PLATELET COUNT (test code = 257 K/UL 1015) ABSOLUTE NEUTROPHILS (test code 6.50 K/UL = 1066) ABSOLUTE LYMPHOCYTES (test code 1.85 K/UL = 1067) ABSOLUTE MONOCYTES (test code = 0.47 K/UL 1068) ABSOLUTE EOSINOPHILS (test code 0.16 K/UL = 1040) ABSOLUTE BASOPHILS (test code = 0.05 K/UL 1069) ABS IMMATURE GRANULOCYTES (test 0.13 K/UL code = 1020) ABS NUCLEATED RBCS (test code = 0.00 K/UL 76629) CBC W/AUTO DIFF WITH PLATELETS [ADDED]2022-03-19 00:00:00 Test Item Value Reference Range Interpretation Comments WBC (test code = 1001) 9.2 K/UL RBC (test code = 1002) 4.20 M/UL HEMOGLOBIN (test code = 1003) 11.2 G/DL HEMATOCRIT (test code = 1004) 36.0 % MCV (test code = 1005) 85.7 fL MCH (test code = 1006) 26.7 PG MCHC (test code = 1007) 31.1 G/DL RDW (test code = 1038) 14.3 % NEUTROPHILS (test code = 1008) 71.1 % LYMPHOCYTES (test code = 1010) 20.2 % MONOCYTES (test code = 1011) 5.1 % EOSINOPHILS (test code = 1012) 1.7 % BASOPHILS (test code = 1013) 0.5 % IMMATURE GRANULOCYTES (test 1.4 % code = 1036) NUCLEATED RBCS (test code = 0.0 /100WBC'S 1065) PLATELET COUNT (test code = 257 K/UL 1015) ABSOLUTE NEUTROPHILS (test code 6.50 K/UL = 1066) ABSOLUTE LYMPHOCYTES (test code 1.85 K/UL = 1067) ABSOLUTE MONOCYTES (test code = 0.47 K/UL 1068) ABSOLUTE EOSINOPHILS (test code 0.16 K/UL = 1040) ABSOLUTE BASOPHILS (test code = 0.05 K/UL 1069) ABS IMMATURE GRANULOCYTES (test 0.13 K/UL code = 1020) ABS NUCLEATED RBCS (test code = 0.00 K/UL 77374) CBC W/AUTO DIFF WITH PLATELETS [ADDED]2022-03-19 00:00:00 Test Item Value Reference Range Interpretation Comments WBC (test code = 1001) 9.2 K/UL RBC (test code = 1002) 4.20 M/UL HEMOGLOBIN (test code = 1003) 11.2 G/DL HEMATOCRIT (test code = 1004) 36.0 % MCV (test code = 1005) 85.7 fL MCH (test code = 1006) 26.7 PG MCHC (test code = 1007) 31.1 G/DL RDW (test code = 1038) 14.3 % NEUTROPHILS (test code = 1008) 71.1 % LYMPHOCYTES (test code = 1010) 20.2 % MONOCYTES (test code = 1011) 5.1 % EOSINOPHILS (test code = 1012) 1.7 % BASOPHILS (test code = 1013) 0.5 % IMMATURE GRANULOCYTES (test 1.4 % code = 1036) NUCLEATED RBCS (test code = 0.0 /100WBC'S 1065) PLATELET COUNT (test code = 257 K/UL 1015) ABSOLUTE NEUTROPHILS (test code 6.50 K/UL = 1066) ABSOLUTE LYMPHOCYTES (test code 1.85 K/UL = 1067) ABSOLUTE MONOCYTES (test code = 0.47 K/UL 1068) ABSOLUTE EOSINOPHILS (test code 0.16 K/UL = 1040) ABSOLUTE BASOPHILS (test code = 0.05 K/UL 1069) ABS IMMATURE GRANULOCYTES (test 0.13 K/UL code = 1020) ABS NUCLEATED RBCS (test code = 0.00 K/UL 16110) [facility] [id number] 15:55:23 Test Item Value Reference Interpretation Comments Range TROPONIN I (test 0.013 ng/mL See_Comment [Automated code = [id number]) message] The system which generated this result transmitted reference range : <=0.034. The reference range was not used to interpret this result as normal/abnormal . ARMANDO (test code = Reference (Normal) ARMANDO) Range (defined by the 99th percentile reference limit): <= 0.034 ng/mL Note: Cardiac troponin begins to rise 3-4 hours after the onset of ischemia. Repeat in 4-6 hours if the sample was drawn within 3-4 hours of the onset of the symptom and found normal. Diagnosis of myocardial injury is made with acute changes in cTn concentrations with at least one serial sample above the 99th percentile upper reference limit (URL), taken together with the patient's clinical presentation. Biotin has been reported to cause a negative bias, interpret results relative to patient's use of biotin. Lab Interpretation Normal (test code = 43129-3) [facility]MIN[facility] [id number] 15:52:26 Test Item Value Reference Range Interpretation Comments NT-proBNP (test code 654 pg/mL See_Comment H [Autom ated = [id number]) message] The system which generated this result transmitted reference range : <=125. The reference range was not used to interpret this result as normal/abnormal . ARMANDO (test code = ARMANDO) Biotin has been reported to cause a negative bias, interpret results relative to patient's use of biotin. Lab Interpretation Abnormal (test code = 58915-0) [facility] FallsCOMP. METABOLIC PANEL (73247)2021-11-26 15:43:44 Test Item Value Reference Range Interpretation Comments NA (test code = 140 mmol/L 135-145 4368229140) K (test code = 5.1 mmol/L 3.5-5.0 H 2707786564) CL (test code = 110 mmol/L 98-108 H 0340760549) CO2 TOTAL (test code = 20 mmol/L 23-31 L 1366395900) AGAP (test code = 2-16 3068431383) BUN (test code = 9 mg/dL 7-23 6330800371) GLUCOSE (test code = 128 mg/dL 70-110 H 7041288907) CREATININE (test code = 0.51 mg/dL 0.50-1.04 5949441035) TOTAL BILI (test code = 0.4 mg/dL 0.1-1.5 2640513056) CALCIUM (test code = 9.0 mg/dL 8.6-10.6 2715873279) T PROTEIN (test code = 7.5 g/dL 6.3-8.2 5658405057) ALBUMIN (test code = 4.0 g/dL 3.5-5.0 0538790213) ALK PHOS (test code = 81 U/L 34-122 2266121396) ALTv (test code = 48 U/L 5-35 H 1742-6) AST(SGOT) (test code = 51 U/L 13-40 H 8442157722) eGFR (test code = mL/min/1.73m2 0001442089) ARMANDO (test code = ARMANDO) Association of Glomerular Filtration Rate (GFR) and Staging of Kidney Disease* + --+ --+ ------+| GFR (mL/min/1.73 m2) ?| With Kidney Damage ?| ?Without Kidney Damage+ --------+ --------+ +| ?>90 ?| ?Stage one ?| ? Normal ?+ ---+ ---+ -------+| ?60-89 ?| ?Stage two ?| ? Decreased GFR ? + --+ --+ ------+| ?30-59 ?| ?Stage three ?| ? Stage three ? + --+ --+ ------+| ?15-29 ?| ?Stage four ? | ? Stage four ?+ ---+ ---+ -------+| ?<15 (or dialysis) ? ?| ?Stage five ? | ? Stage five ?+ ---+ ---+ -------+ *Each stage assumes the associated GFR level has been in effect for at least three months. ?Stages 1 to 5, with or without kidney disease, indicate chronic kidney disease. Notes: Determination of stages one and two (with eGFR >59mL/min/1.73 m2) requires estimation of kidney damage for at least three months as defined by structural or functional abnormalities of the kidney, manifested by either:Pathological abnormalities or Markers of kidney damage (including abnormalities in the composition of the blood or urine or abnormalities in imaging tests). Lab Interpretation Abnormal (test code = 63497-3) [facility]2022-06-07 15:43:44 Test Item Value Reference Range Interpretation Comments MAGNESIUM (test code = 1881293689) 1.8 mg/dL 1.7-2.4 Lab Interpretation (test code = Normal 27223-2) [facility] FallsLIPASE, [id number] 15:43:24 Test Item Value Reference Range Interpretation Comments LIPASE (test code = 9526804567) 87 U/L 0-220 Lab Interpretation (test code = Normal 70253-9) [facility] FallsaPTT2022-06-07 15:40:45 Test Item Value Reference Range Interpretation Comments APTT Patient (test See_Comment [Automat ed code = 3173-2) message] The system which generated this result transmitted reference range : 23 - 38 Seconds . The reference range was not used to interpr et this result as normal/abnormal . ARMANDO (test code = ARMANDO) The [facility] patient population mean normal value for aPTT is 30 seconds. Lab Interpretation Normal (test code = 38196-5) [facility] FallsPROTHROMBIN TIME / [id number] 15:38:43 Test Item Value Reference Range Interpretation Comments PROTIME PATIENT (test See_Comment [Auto mated message] code = 5964-2) The system wh ich generated this result transmitted ref erence range: 12.0 - 1 4.7 Seconds. The re ference range was not u sed to interpret this result as normal/abnor mal. INR (test code = 6301-6) Nor mal INR <1.1; Warfarin Therap eutic range 2.0 to 3. 0 or 2.5 to 3.5, dep ending upon the indica tions. Lab Interpretation (test Normal code = 18834-4) [facility] FallsCB WITH [id number] 15:32:03 Test Item Value Reference Range Interpretation Comments WBC (test code = See_Comment H [Automated 4490-2) message] The sy stem which generated this result transmitted reference range : 4.30 - 11.10 10*3/?L. The reference range was not used to interpret this result as normal/abnormal . RBC (test code = See_Comment [Automated 729-8) message] The sy stem which generated this result transmitted reference range : 3.93 - 5.25 10*6/?L. The reference range was not used to interpret this result as normal/abnormal . HGB (test code = 12.8 g/dL 11.6-15.0 718-7) HCT (test code = 40.5 % 35.7-45.2 4544-3) MCV (test code = 84.2 fL 80.6-95.5 787-2) MCH (test code = 26.6 pg 25.9-32.8 785-6) MCHC (test code = 31.6 g/dL 31.6-35.1 786-4) RDW-SD (test code = 44.2 fL 39.0-49.9 71993-5) RDW-CV (test code = 14.3 % 12.0-15.5 788-0) PLT (test code = See_Comment [Automated 777-3) message] The sy stem which generated this result transmitted reference range : 166 - 358 10*3/ ?L. The reference r mariah was not used to interpret this result as normal/abnormal . MPV (test code = 9.6 fL 9.5-12.9 03744-8) NRBC/100 WBC (test See_Comment [Automat ed code = 0568634952) message] The system which generated this result transmitted reference range : 0.0 - 10.0 /100 WBCs. The refer ence range was not u sed to interpret th is result as normal/abnormal . NRBC x10^3 (test code <0.01 See_Comment [Auto mated = 6083971734) message] The s ystem which generated this result transmitted reference range : 10*3/?L. The reference range was not used to interpret this result as normal/abnormal . GRAN MAT (NEUT) % 69.8 % (test code = 770-8) IMM GRAN % (test code 1.10 % = 0420694851) LYMPH % (test code = 22.8 % 736-9) MONO % (test code = 4.5 % 5905-5) EOS % (test code = 1.3 % 713-8) BASO % (test code = 0.5 % 706-2) GRAN MAT x10^3(ANC) 9.82 10*3/uL 1.88-7.09 H (test code = 2549289879) IMM GRAN x10^3 (test 0.15 10*3/uL 0.00-0.06 H code = 9149830085) LYMPH x10^3 (test code 3.21 10*3/uL 1.32-3.29 = 731-0) MONO x10^3 (test code 0.63 10*3/uL 0.33-0.92 = 742-7) EOS x10^3 (test code = 0.18 10*3/uL 0.03-0.39 711-2) BASO x10^3 (test code 0.07 10*3/uL 0.01-0.07 = 704-7) Lab Interpretation Abnormal (test code = 89078-9) [facility] SCREENING W/ [id number] 14:31:03 [facility] : 1980 Sex: [place]: [address]: A digital 3-D screening mammogram is performed and interpreted with computer-aided detection. No comparison studies. There are scattered fibroglandular densities within the breasts. No areas suggestive of malignant mass are identified. There are no suspicious calcifications.IMPRESSION:1. BI-RAD S 1-negative. Normal screening interval. Electronically signed by: Davi Chand MD 10/07/2021 2:31 PM CDT [id number], [id number] 10:12:47SPECIMEN NUMBER: [id number] CULTURE, URINE SPECIMEN NUMBER: [id number] SPECIMEN COMMENT: URINE SOURCE:URINE REPORT STATUS: FINAL FINAL REPORT: 09/28/2021 50-100,000 CFU/ML UROGENITAL SAUMYA PRESENT NO COMMON PATHOGENS UNLESS OTHERWISE INDICATED, ALL TESTING PERFORMED [facility]IES, [place] [address] GEMOLOGIST: KING DESAI M.D. [place] NUMBER [id number]. [id number], [id number] 00:00:00 Test Item Value Reference Range Interpretation Comments CULTURE, URINE (test SPECIMEN NUMBER: code = 05869) [id number] CULTURE, [id number] 00:00:00 Test Item Value Reference Range Interpretation Comments CULTURE, URINE (test SPECIMEN NUMBER: code = 84252) [id number] CULTURE, [id number] 00:00:00 Test Item Value Reference Range Interpretation Comments CULTURE, URINE (test SPECIMEN NUMBER: code = 05129) [id number] CULTURE, [id number] 00:00:00 Test Item Value Reference Range Interpretation Comments CULTURE, URINE (test SPECIMEN NUMBER: code = 32793) [id number] CULTURE, [id number] 00:00:00 Test Item Value Reference Range Interpretation Comments CULTURE, URINE (test SPECIMEN NUMBER: code = 70119) [id number] CULTURE, [id number] 00:00:00 Test Item Value Reference Range Interpretation Comments CULTURE, URINE (test SPECIMEN NUMBER: code = 33008) [id number] test, [id number] 11:49:11 Test Item Value Reference Range Interpretation Comments HCG (test code = HCG) negative [facility] [id number] 11:49:11 Test Item Value Reference Range Interpretation Comments HCG (test code = HCG) negative [facility], LB + [id number] 00:00:00 Test Item Value Reference Range Interpretation Comments LMP date: (test code = 07/05/2021 LMP date:) Pap, liquid-based nilm nilm (test code = Pap, liquid-based) source (liquid-based cervical (which cytology): (test code includes endocervical) = source (liquid-based cytology):) HPV high risk DNA (non not detected not detected 16/18) (test code = HPV high risk DNA (non 16/18)) HPV high risk DNA type detected not detected A 16 (test code = HPV high risk DNA type 16) HPV high risk DNA type not detected not detected 18 (test code = HPV high risk DNA type 18) [facility] identified in Urine by [id number] 00:00:00 Test Item Value Reference Range Interpretation Comments culture, urine (test code = see below no growth culture, urine) [facility] identified in Urine by [id number] 00:00:00 Test Item Value Reference Range Interpretation Comments culture, urine (test code = see below no growth culture, urine) [facility] by Automated [id number] 00:00:00 Test Item Value Reference Range Interpretation Comments WBC (test code = WBC) 8.1 10 3.7-12.0 RBC (test code = RBC) 4.26 10 3.60-5.50 HGB (test code = HGB) 10.6 g/dL 11.5-15.6 L HCT (test code = HCT) 33.6 % 34.5-46.5 L MCV (test code = MCV) 79.0 um 80.0-102.0 L MCH (test code = MCH) 24.9 pg 25.0-34.1 L MCHC (test code = MCHC) 31.5 g/dL 29.0-35.0 RDW (test code = RDW) 15.5 % 10.9-16.9 plt (test code = plt) 284 10 136-392 MPV (test code = MPV) 8.1 um 7.4-11.1 gran % (test code = gran %) 69.7 % 36.0-78.0 lymph % (test code = lymph %) 21.7 % 12.0-48.0 mono % (test code = mono %) 5.7 % 0.0-13.0 eos % (test code = eos %) 2 % 0-8 baso % (test code = baso %) 1 % 0-2 gran # (test code = gran #) 5.7 10 1.2-6.8 lymph # (test code = lymph #) 1.8 10 1.2-3.2 mono # (test code = mono #) 0.5 10 0.3-0.8 eos # (test code = eos #) 0.1 10 0.0-0.2 baso # (test code = baso #) 0.1 10 0.0-0.2 [facility] T4 and TSH panel - Serum or [id number] 00:00:00 Test Item Value Reference Range Interpretation Comments TSH (test code = TSH) 1.240 uIU/mL 0.178-4.530 free T4 (test code = free T4) 1.29 NG/dL 0.80-1.73 [facility] Automated [id number] 00:00:00 Test Item Value Reference Range Interpretation Comments WBC (test code = WBC) 8.1 10 3.7-12.0 RBC (test code = RBC) 4.26 10 3.60-5.50 HGB (test code = HGB) 10.6 g/dL 11.5-15.6 L HCT (test code = HCT) 33.6 % 34.5-46.5 L MCV (test code = MCV) 79.0 um 80.0-102.0 L MCH (test code = MCH) 24.9 pg 25.0-34.1 L MCHC (test code = MCHC) 31.5 g/dL 29.0-35.0 RDW (test code = RDW) 15.5 % 10.9-16.9 plt (test code = plt) 284 10 136-392 MPV (test code = MPV) 8.1 um 7.4-11.1 gran % (test code = gran %) 69.7 % 36.0-78.0 lymph % (test code = lymph %) 21.7 % 12.0-48.0 mono % (test code = mono %) 5.7 % 0.0-13.0 eos % (test code = eos %) 2 % 0-8 baso % (test code = baso %) 1 % 0-2 gran # (test code = gran #) 5.7 10 1.2-6.8 lymph # (test code = lymph #) 1.8 10 1.2-3.2 mono # (test code = mono #) 0.5 10 0.3-0.8 eos # (test code = eos #) 0.1 10 0.0-0.2 baso # (test code = baso #) 0.1 10 0.0-0.2 [facility] - Serum or [id number] 00:00:00 Test Item Value Reference Range Interpretation Comments TSH (test code = TSH) 1.240 uIU/mL 0.178-4.530 free T4 (test code = free T4) 1.29 NG/dL 0.80-1.73 [facility]"
[2022-12-13 09:39] LABS: Absolute Lymphocytes (CBC) 1.5 K/uL (0.7-4.9); Hematocrit 33.2 % (36.0-45.0); Lymphocytes % 16.7 % (15.3-44.8); MCV 78.3 fL (80-100); MPV 7.1 fL (7.6-11.3); RBC Red Blood Cell Count 4.24 M/uL (3.86-4.86)
[2022-12-13 09:56] LABS: Magnesium 2.3 mg/dL (1.6-2.4); Potassium 4.3 mEq/L (3.5-5.1); Troponin High Sensitivity 12.2 pg/mL (<58.9)
[2022-12-13] MEDS ORDERED: NA CHLORIDE 0.9% 1,000 ML ONE (10:15)
--- NOTE | 2022-12-13 10:32 | RAD REPORT ---
EXAM DESCRIPTION: Tarun Single View12/13/2022 9:53 am CLINICAL HISTORY: Chest pain COMPARISON: 2020 FINDINGS: The lungs appear clear of acute infiltrate. The heart is normal size IMPRESSION: No acute abnormalities displayed
--- NOTE | 2022-12-13 11:47 | ER ---
Nurse's Notes [facility] Name: Janet Eduardo Age: 42 yrs Sex: Female : 1980 Arrival Date: 12/13/2022 Time: 08:32 Bed 19 Private MD: Diagnosis: Cardiac arrhythmia, unspecified Presentation: 12/13 09:11 Chief complaint: Patient states: "I was having a bowel movement this morning and I ld1 began to feet super short of breath and my heart was racing." Pt reports pt being in SVT - administered 12 mg Adenosine \\T\\ 324 ASA. Coronavirus screen: At this time, the client does not indicate any symptoms associated with coronavirus-19. Ebola Screen: No symptoms or risks identified at this time. Initial Sepsis Screen: Does the patient meet any 2 criteria? No. Patient's initial sepsis screen is negative. Does the patient have a suspected source of infection? No. Patient's initial sepsis screen is negative. Risk Assessment: Do you want to hurt yourself or someone else? Patient reports no desire to harm self or others. Onset of symptoms was December 13, 2022. 09:11 Method Of Arrival: Ambulatory ld1 09:11 Acuity: PRETTY 3 ld1 Triage Assessment: 09:15 General: Appears in no apparent distress. comfortable, Behavior is calm, cooperative, ld1 appropriate for age. Pain: Denies pain. EENT: No signs and/or symptoms were reported regarding the EENT system. Neuro: Level of Consciousness is awake, alert, obeys commands, Oriented to person, place, time, situation. Cardiovascular: Capillary refill < 3 seconds Patient's skin is warm and dry. Rhythm is sinus rhythm. Respiratory: Airway is patent Respiratory effort is even, unlabored. GI: Abdomen is round non-distended. : No signs and/or symptoms were reported regarding the genitourinary system. Derm: No signs and/or symptoms reported regarding the dermatologic system. Musculoskeletal: No signs and/or symptoms reported regarding the musculoskeletal system. Historical: - Allergies: 09:15 No Known Allergies; ld1 - PMHx: 09:15 Hypothyroidism; Hypertensive disorder; Anemia; ld1 - PSHx: 09:15 None; ld1 - Immunization history:: Adult Immunizations up to date, Client reports receiving the 2nd dose of the Covid vaccine. - Social history:: Smoking status: Patient denies any tobacco usage or history of. Patient/guardian denies using alcohol. Screenin:17 [facility] ED Fall Risk Assessment (Adult) History of falling in the last 3 months, ld1 including since admission No falls in past 3 months (0 pts). Abuse screen: Denies threats or abuse. Denies injuries from another. Nutritional screening: No deficits noted. Tuberculosis screening: No symptoms or risk factors identified. Assessment: 09:17 Reassessment: See triage assessment. ld1 Vital Signs: 09:11 BP 108 / 78; Pulse 75; Resp 19; Temp 98.1(O); Pulse Ox 97% on R/A; Weight 106.14 kg; ld1 Height 5 ft. 2 in. ; Pain 0/10; 10:01 BP 87 / 50; Pulse 70; Resp 18; Pulse Ox 98% on R/A; ld1 11:46 BP 91 / 57; Pulse 65; Resp 18; Pulse Ox 100% on R/A; ld1 09:11 Body Mass Index 42.80 (106.14 kg, 157.48 cm) ld1 09:11 Pain Scale: Adult ld1 ED Course: 08:43 Patient arrived in ED. iw 08:54 [facility] Serrano F[facility]-C [facility]. snw 08:54 Wiliam Trent MD is Attending Physician. snw 09:15 Triage completed. ld1 09:16 Arm band placed on right wrist. ld1 09:17 Patient has correct armband on for positive identification. Placed in gown. Bed in low ld1 position. Call light in reach. Side rails up X2. surveillance monitor on. Pulse ox on. NIBP on. Door closed. Noise minimized. Warm blanket given. 09:17 No provider procedures requiring assistance completed. ld1 09:18 Maryam Ott, LANA is Primary Nurse. ld1 09:55 XRAY Chest (1 view) In Process Unspecified. EDMS 11:59 IV discontinued, intact, bleeding controlled, No redness/swelling at site. ld1 Administered Medications: 10:15 Drug: NS 0.9% IV 1000 ml Route: IV; Rate: 1 bolus; Site: left antecubital; ld1 Medication: 09:17 VIS not applicable for this client. ld1 Outcome: 11:46 Discharge ordered by MD. snw 11:59 Discharged to home ambulatory. ld1 11:59 Condition: stable 11:59 Discharge instructions given to patient, Instructed on discharge instructions, follow up and referral plans. Demonstrated understanding of instructions, follow-up care. 12:00 Patient left the ED. ld1 Signatures: Dispatcher [employer] EDAranza Ren FNP-C FNP-Radha Nieto RN RN iw Maryam Ott RN RN ld1
--- NOTE | 2022-12-13 11:47 | EDPHYS ---
Physician Documentation [facility] Name: Janet Eduardo Age: 42 yrs Sex: Female : 1980 Arrival Date: 12/13/2022 Time: 08:32 Bed 19 Private MD: ED Physician Wiliam Trent HPI: 12/13 09:07 This 42 yrs old Female presents to ER via Unassigned with complaints of SVT, snw palpitations. 09:07 The patient presents with a history of heart racing. Context: The symptoms occur post snw Valsalva . Onset: The symptoms/episode began/occurred suddenly, this morning. Duration: The patient or guardian reports a single episode. Severity of symptoms: At their worst the symptoms were moderate severe in the emergency department the symptoms have resolved. The patient has experienced similar episodes in the past, and the symptoms today are exactly the same, Pt to have ablasion/pacer at [facility] next week. It is unknown whether or not the patient has recently seen a physician. Historical: - Allergies: 09:15 No Known Allergies; ld1 - PMHx: 09:15 Hypothyroidism; Hypertensive disorder; Anemia; ld1 - PSHx: 09:15 None; ld1 - Immunization history:: Adult Immunizations up to date, Client reports receiving the 2nd dose of the Covid vaccine. - Social history:: Smoking status: Patient denies any tobacco usage or history of. Patient/guardian denies using alcohol. ROS: 09:06 Constitutional: Negative for fever, chills, and weight loss, Eyes: Negative for injury, snw pain, redness, and discharge, ENT: Negative for injury, pain, and discharge, Neck: Negative for injury, pain, and swelling, Back: Negative for injury and pain, : Negative for injury, bleeding, discharge, and swelling, MS/Extremity: Negative for injury and deformity, Skin: Negative for injury, rash, and discoloration, Neuro: Negative for headache, weakness, numbness, tingling, and seizure, Psych: Negative for depression, anxiety, suicide ideation, homicidal ideation, and hallucinations. 09:06 Cardiovascular: Positive for palpitations. 09:06 Respiratory: Positive for shortness of breath. 09:06 Abdomen/GI: Positive for s/s began suddenly post BM. EMS arrived with pt HR >160, pale, clammy, SOB. Exam: 09:05 Constitutional: This is a well developed, well nourished patient who is awake, alert, snw and in no acute distress. Head/Face: Normocephalic, atraumatic. Eyes: Pupils equal round and reactive to light, extra-ocular motions intact. Lids and lashes normal. Conjunctiva and sclera are non-icteric and not injected. Cornea within normal limits. Periorbital areas with no swelling, redness, or edema. ENT: Nares patent. No nasal discharge, no septal abnormalities noted. Tympanic membranes are normal and external auditory canals are clear. Oropharynx with no redness, swelling, or masses, exudates, or evidence of obstruction, uvula midline. Mucous membranes moist. Neck: Trachea midline, no thyromegaly or masses palpated, and no cervical lymphadenopathy. Supple, full range of motion without nuchal rigidity, or vertebral point tenderness. No Meningismus. Chest/axilla: Normal chest wall appearance and motion. Nontender with no deformity. No lesions are appreciated. Abdomen/GI: Soft, non-tender, with normal bowel sounds. No distension or tympany. No guarding or rebound. No evidence of tenderness throughout. Back: No spinal tenderness. No costovertebral tenderness. Full range of motion. Skin: Warm, dry with normal turgor. Normal color with no rashes, no lesions, and no evidence of cellulitis. MS/ Extremity: Pulses equal, no cyanosis. Neurovascular intact. Full, normal range of motion. Neuro: Awake and alert, GCS 15, oriented to person, place, time, and situation. Cranial nerves II-XII grossly intact. Motor strength 5/5 in all extremities. Sensory grossly intact. Cerebellar exam normal. Normal gait. Psych: Awake, alert, with orientation to person, place and time. Behavior, mood, and affect are within normal limits. 09:05 Cardiovascular: Rate: normal, s/p SVT conversion with adenosine 6mg per EMS, pt arrives to ED stable, comfortable.. 09:05 Respiratory: the patient does not display signs of respiratory distress, Respirations: normal, Breath sounds: are clear throughout. Vital Signs: 09:11 BP 108 / 78; Pulse 75; Resp 19; Temp 98.1(O); Pulse Ox 97% on R/A; Weight 106.14 kg; ld1 Height 5 ft. 2 in. ; Pain 0/10; 10:01 BP 87 / 50; Pulse 70; Resp 18; Pulse Ox 98% on R/A; ld1 11:46 BP 91 / 57; Pulse 65; Resp 18; Pulse Ox 100% on R/A; ld1 09:11 Body Mass Index 42.80 (106.14 kg, 157.48 cm) ld1 09:11 Pain Scale: Adult ld1 MDM: 08:56 Patient medically screened. snw 09:03 KATTY Risk Score: 1 - Recent [<24 hrs] Severe Angina, Total Score = 1. Differential snw diagnosis: arrythmia, dehydration. Data reviewed: vital signs, nurses notes. Historians other than the Patient:. Historians other than the Patient: EMS: [facility]. Counseling: I had a detailed discussion with the patient and/or guardian regarding: the historical points, exam findings, and any diagnostic results supporting the discharge/admit diagnosis. 10:20 ED course: pt noted to be a little hypotensive, no s/s. Will give 1L NS iv and re-eval. snw 12/13 08:54 Order name: Basic Metabolic Panel; Complete Time: 10:00 snw 12/13 08:54 Order name: CBC with Diff; Complete Time: 09:55 snw 12/13 08:54 Order name: Magnesium; Complete Time: 10:00 12/13 08:54 Order name: Troponin HS; Complete Time: 10:00 snw 12/13 08:54 Order name: XRAY Chest (1 view); Complete Time: 10:37 snw 12/13 08:54 Order name: EKG; Complete Time: 08:55 snw 12/13 08:54 Order name: Cardiac monitoring; Complete Time: 09:10 snw 12/13 08:54 Order name: EKG - Nurse/Tech; Complete Time: 09:35 snw 12/13 08:54 Order name: IV Saline Lock; Complete Time: 09:10 snw 12/13 08:54 Order name: Labs collected and sent; Complete Time: 09:35 snw 12/13 08:54 Order name: O2 Per Protocol; Complete Time: 09:10 snw 12/13 08:54 Order name: O2 Sat Monitoring; Complete Time: 09:10 snw EC:25 Rate is 73 beats/min. Rhythm is regular. QRS [place] is Normal. [place] interval is normal. QRS snw interval is normal. No Q waves. Clinical impression: Normal ECG. Administered Medications: 10:15 Drug: NS 0.9% IV 1000 ml Route: IV; Rate: 1 bolus; Site: left antecubital; ld1 Disposition Summary: 12/13/22 11:46 Discharge Ordered Location: Home snw Condition: Stable snw Diagnosis - Cardiac arrhythmia, unspecified snw Followup: snw - With: Emergency Department - When: As needed - Reason: Worsening of condition Followup: snw - With: Private Physician - When: 2 - 3 days - Reason: Recheck today's complaints, Continuance of care, Re-evaluation by your physician Discharge Instructions: - Discharge Summary Sheet snw - Palpitations snw - Chemical Cardioversion snw - Pacemaker Implantation, Adult snw - Cardioverter Defibrillator Implantation snw Forms: - Medication Reconciliation Form snw - Thank You Letter snw - Antibiotic Education snw - Prescription Opioid Use snw Signatures: Dispatcher [employer] EDMS Aranza Serrano, STEREO PLOTTER OPERATOR-C STEREO PLOTTER OPERATOR-Csnw Maryam Ott, RN RN ld1
[2022-12-13 12:14] VITALS: TEMP 98.1
[2022-12-13 12:16] VITALS: BP 91/57; O2SAT 100
--- NOTE | 2022-12-14 14:23 | EKG ---
Test Date: 2022-12-13 Test Time: 09:23:26 Medical Support Assistant: Jennifer ALLEN MEASUREMENT RESULTS: Intervals: Rate: 73 SD: 144 QRSD: 72 QT: 374 QTc: 412 [place]: P: 38 SD: 144 QRS: 26 T: 6 INTERPRETIVE STATEMENTS: Normal sinus rhythm Normal ECG Compared to ECG 09/10/2020 09:47:11 No significant changes Electronically Signed On 12-14-22 14:21:38 CDT by Landen Butterfield
== END 2022-12-13 12:00 | disposition home or self-care (01) ==
LOC: ER 08:32
DX: I49.9 Cardiac arrhythmia, unspecified (principal); I10 Essential (primary) hypertension; E03.9 Hypothyroidism, unspecified
CPT/HCPCS: 93005; 85025; 80048; 36415; 83735; 84484; 71045; 99284; J7030